=== PATIENT | female | born 1960 | race Caucasian/White ===

== ENCOUNTER 2024-02-23 23:19 | Emergency (ER) | payer OTHER, MEDICARE ==
--- OUTSIDE RECORDS SUMMARY | 2024-02-23 23:28 | XMS REPORT | Clinical Summary ---
Author Name Unknown Organization [facility] [place] Address [address] [place] [address] Care Team Providers Care Generator Rebuilder Name Role Phone Belle Goncalves Unavailable Ryanne Rangel MD Primary Care Provider [phone] Sihmon Florian MD Unavailable [phone] Mark Anthony Baptiste APRN Unavailable [phone] Mandi Bailey Unavailable Shimon Florian MD Primary Care Provider [phone] David Ortez MD Unavailable [phone] Hank Giles MD Unavailable [phone] Huong Belcher Unavailable [phone] Ramila Jimenez DDS Unavailable [phone] Cammie Rodriguez MD Unavailable [phone] Raudel Tucker MD Unavailable [phone] Allergies Active Allergy Reactions Criticality Noted Date Comments Tank Inhibitors 10/26/2023 Constant cough Medications Medication Sig Dispensed Refills Start Date End Date Status ondansetron (Zofran) 8 mg tabletIndications :Cholangiocarcino ma of biliary tract, NOS Take 1 tablet (8 mg) by mouth every 8 (eight) hours as needed for nausea or vomiting (First choice). 30 tablet 5 4 Active prochlorperazine (COMPAZINE) 10 mg tabletIndications :Cholangiocarcino ma of biliary tract, NOS Take 1 tablet (10 mg) by mouth every 6 (six) hours as needed for nausea or vomiting (Second choice). 50 tablet 5 4 Active fluoride, sodium, (PREVIDENT) 1.1 % dental creamIndications: Cholangiocarcinom a of biliary tract, NOS Apply to teeth daily. 51 g 3 4 Active lidocaine-priloca ine (EMLA) 2.5-2.5% creamIndications: Encounter for preprocedural examination Apply 1 application topically to affected area(s) as needed for mild pain (Apply to port-a-cath site 1 hour before port access.). 30 g 0 4 Active Disabled Parking PlacardIndication s:Cholangiocarcin gareth of biliary tract, NOS,Secondary malignant neoplasm of bone I am requesting a disabled parking placard for this patient because he/she meets the [employer] criteria for disabilities. The patient will need the disabled parking placard for this length of time: Permanent disability. 1 each 0 4 Active benzonatate (Tessalon Perles) 100 mg capsuleIndication s:Other specified cough Take 1 capsule (100 mg) by mouth every 8 (eight) hours as needed for cough. 60 capsule 0 4 Active lidocaine 4 % ptmdIndications:C holangiocarcinoma of biliary tract, NOS,Secondary malignant neoplasm of bone,Neoplasm related pain (acute) (chronic) Apply 1 patch topically daily. 30 patch 0 4 Active fentaNYL (DURAGESIC) patch 25 mcg/hrIndications :Neoplasm related pain (acute) (chronic) Place 1 patch (25 mcg) on the skin every 72 hours. Remove old patch(es) before replacing new patch(es). 10 patch 0 4 Active amiodarone (PACERONE) 200 mg tabletIndications :Tachypnea Take 1 tablet (200 mg) by mouth daily. 0 4 Active ipratropium (ATROVENT) 0.02% nebulizer solutionIndicatio ns:Acute hypoxemic respiratory failure Inhale 2.5 mL (0.5 mg) by nebulization every 6 (six) hours. 0 4 Active simethicone (MYLICON) 80 mg chewable tabletIndications :Gastric reflux Chew 1 tablet (80 mg) 4 (four) times a day as needed for flatulence. 0 4 Active OLANZapine (ZyPREXA) 2.5 mg tabletIndications :Personal care impairment,Tachyp morelia Take 1 tablet (2.5 mg) by mouth twice daily. 0 4 Active OLANZapine (ZyPREXA) 5 mg tabletIndications :Personal care impairment,Tachyp morelia Take 1 tablet (5 mg) by mouth every 8 (eight) hours as needed for anxiety. 0 4 Active metoprolol tartrate (LOPRESSOR) 25 mg tabletIndications :Tachypnea Take 1 tablet (25 mg) by mouth every 12 (twelve) hours. 0 4 Active sodium chloride 3 % nebulizer solutionIndicatio ns:Acute hypoxemic respiratory failure,Simple chronic bronchitis Inhale 4 mL by nebulization every 6 (six) hours. 0 4 Active wound dressings (TRIAD HYDROPHILIC) pste topical pasteIndications: Breakthrough cancer pain Apply topically to affected area(s) twice daily. 0 4 Active polyethylene glycol (MIRALAX) 17 g packetIndications :Breakthrough cancer pain Take 17 g by mouth daily as needed (Constipation). 0 4 Active senna-docusate (SENOKOT-S) 8.6 mg-50 mg tabletIndications :Breakthrough cancer pain Take 1 tablet by mouth twice daily. 0 4 Active HYDROmorphone (DILAUDID) 1 mg/1 mL liquidIndications :Breakthrough cancer pain Take 3 mL (3 mg) by mouth every 4 (four) hours as needed for severe pain. 0 4 Active pantoprazole (PROTONIX) 40 mg EC tabletIndications :Breakthrough cancer pain,Gastric reflux Take 1 tablet (40 mg) by mouth every morning before breakfast. 0 4 Active methocarbamol (ROBAXIN) 500 mg tabletIndications :Breakthrough cancer pain Take 1 tablet (500 mg) by mouth every 8 (eight) hours as needed for muscle spasms. 0 4 Active budesonide (PULMICORT) 0.5 mg/2 mL nebulizer solutionIndicatio ns:Acute hypoxemic respiratory failure,Simple chronic bronchitis Inhale 2 mL (0.5 mg) by nebulization every 12 (twelve) hours. 30 each 0 4 Active amLODIPine (NORVASC) 5 mg tablet Take 1 tablet (5 mg) by mouth daily. 0 2 024 Discontinued(St op Taking at Discharge) aspirin 81 mg cap Take 81 mg by mouth daily. 0 2 024 Discontinued(Di scontinued by another clinician) atorvastatin (LIPITOR) 40 mg tablet Take 1 tablet (40 mg) by mouth at bedtime. 0 2 024 Discontinued(St op Taking at Discharge) traMADol (ULTRAM) 50 mg tablet Take 1 tablet (50 mg) by mouth 2 (two) times a day as needed. 0 3 023 Discontinued(Th erapy completed) triamcinolone (KENALOG) 0.5 % ointment Apply 1 application topically to affected area(s) twice daily. 0 024 Discontinued(Th erapy completed) ketoconazole (NIZORAL) 2% cream Apply 1 application topically to affected area(s) daily. 0 2 024 Discontinued( erapy completed) carvedilol (COREG) 12.5 mg tablet Take 1 tablet (12.5 mg) by mouth twice daily. 0 024 Discontinued(St op Taking at Discharge) losartan (COZAAR) 50 mg tablet Take 1 tablet (50 mg) by mouth daily. 0 024 Discontinued(St op Taking at Discharge) HYDROcodone-aceta minophen (Buckhannon) 10 mg-325 mg per tabletIndications :CT of abdomen abnormal,Neoplasm related pain (acute) (chronic) Take 1 tablet by mouth every 6 (six) hours as needed for moderate pain. 60 tablet 0 3 023 Discontinued(Re order) HYDROcodone-aceta minophen ([place]) 10 mg-325 mg per tabletIndications :CT of abdomen abnormal,Neoplasm related pain (acute) (chronic) Take 1 tablet by mouth every 6 (six) hours as needed for moderate pain. 60 tablet 0 3 024 Discontinued( erapy completed) peg 3350-electrolytes (Golytely) 236-22.74-6.74 g solutionIndicatio ns:Adenocarcinoma , NOS of unknown primary site Use as directed by ordering provider. 4000 mL 0 3 023 Discontinued( erapy completed) omeprazole (PriLOSEC) 20 mg capsule Take 1 capsule (20 mg) by mouth every morning before breakfast. 0 4 024 Discontinued( erapy completed) oxyCODONE (ROXICODONE) 10 mg immediate release tabletIndications :Adenocarcinoma, NOS of unknown primary site Take 1 tablet (10 mg) by mouth every 6 (six) hours as needed for moderate pain for up to 30 days. 120 tablet 0 4 024 ondansetron (ZOFRAN) 8 mg tabletIndications :Malignant neoplasm of liver, not specified as primary or secondary Take 1 tablet (8 mg) by mouth every 8 (eight) hours as needed for nausea or vomiting. 30 tablet 0 4 024 Discontinued ALPRAZolam (Xanax) 0.5 mg tabletIndications :Secondary malignant neoplasm of bone Take 1 tablet (0.5 mg) by mouth nightly as needed for anxiety. 2 tablet 0 4 024 Discontinued(St op Taking at Discharge) oxyCODONE (ROXICODONE) 10 mg immediate release tabletIndications :Cholangiocarcino ma of biliary tract, NOS Take 1 tablet (10 mg) by mouth every 6 (six) hours as needed for severe pain for up to 30 days. 120 tablet 0 4 024 Discontinued HYDROcodone-aceta minophen (NORCO) 10 mg-325 mg per tabletIndications :Cholangiocarcino ma of biliary tract, NOS Take 1 tablet by mouth every 8 (eight) hours as needed for severe pain or moderate pain for up to 30 days. 90 tablet 0 4 024 Discontinued(St op Taking at Discharge) budesonide (PULMICORT) 0.5 mg/2 mL nebulizer solutionIndicatio ns:Acute hypoxemic respiratory failure,Simple chronic bronchitis Inhale 2 mL (0.5 mg) by nebulization every 12 (twelve) hours. 30 each 0 4 024 Discontinued(Re order) Active Problems Problem Noted Date Diagnosed Date Hematoma 02/21/2024 Acute respiratory failure with hypoxia Acute respiratory distress 02/05/2024 Confusion 02/05/2024 Air hunger 02/05/2024 Tachypnea 02/05/2024 Acute postoperative pain 01/31/2024 Severe protein-calorie malnutrition 01/26/2024 Fracture of neck of femur 01/25/2024 Metastatic malignant neoplasm to bone 01/25/2024 Pathological fracture, right femur 01/25/2024 Stage 3 pressure ulcer of other site 01/25/2024 Overview: Coccyx and left buttock Secondary malignant neoplasm of bone 12/26/2023 Cholangiocarcinoma of biliary tract, 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(cTX, cN2, cM1) - Unsigned Chronic bronchitis 10/26/2023 Chronic kidney disease 10/26/2023 Chronic obstructive pulmonary disease 10/26/2023 Diverticulitis 10/26/2023 Eczema 10/26/2023 Fatty liver 10/26/2023 Gastric reflux 10/26/2023 Hepatitis 10/26/2023 Hyperlipidemia 10/26/2023 Hypertension 10/26/2023 Polyp of colon 10/26/2023 Psoriasis 10/26/2023 Tuberculosis 10/26/2023 Type 2 diabetes mellitus 10/26/2023 Urinary incontinence 10/26/2023 Neoplasm related pain (acute) (chronic) 10/26/20 Tobacco use 10/26/2023 CT of abdomen abnormal 10/24/2023 Resolved Problems Problem Noted Date Diagnosed Date Resolved Date Hyperkalemia 01/25/2024 02/21/2024 Adenocarcinoma, NOS of unknown primary site 11/17/2023 12/20/2023 Encounters Date Type Department Care Team Description 02/05/2024 12:29 AM [employer] Anesthesia Event MAIN ICUA [address] [place] [address] Mikaela Bates MD 02/02/2024 Orders Only MD [facility] - Medical Oncology [address] [place] [address] Mandi Bailey PA Cholangiocarcinoma of biliary tract, NOS (Primary Dx) 01/30/2024 3:44 PM [employer] Anesthesia Event MAIN OR [address] [place] [address] Kassandra Alexander MD Hancher-Hodges, Shannon, MD 01/30/2024 12:55 PM [employer] - 01/30/2024 5:10 PM [employer] Surgery MAIN OR [address] [place] [address] Hank Giles MD ACETABULOPLASTY WITH RESECTION OF FEMORAL HEAD (EG, GIRDLESTONE PROCEDURE) 01/30/2024 Travel 01/26/2024 Orders Only [facility] [address] [place] [address], 7th [place] [address] Isai Sumner MD 01/25/2024 Prep for Surgery [facility] [address] [place] [address], 9th [place] [address] Garrett Brewer PA Cholangiocarcinoma of biliary tract, NOS (Primary Dx); Metastatic malignant neoplasm to bone; Pathological fracture, right femur, initial encounter for fracture 01/24/2024 7:41 PM [employer] - 02/22/2024 5:29 PM CDT Hospital Encounter MAIN [address] [place] [address] Felicia Donald MD Musunuru, Tejo, MD Gao, Lucy C, MD Mohammed, MD Jarocho Zavala Mayoora, DO Parhizgar, Alireza, MD Koom-Dadzie, Kwame, MD Dickson, Kodwo, MD Pathologic fracture of neck of femur (Primary Dx); Cholangiocarcinoma of biliary tract, NOS; Breakthrough cancer pain; Anemia in malignant neoplastic disease; Edema of lower extremity; Metastatic malignant neoplasm to bone; Pathological fracture, right femur, initial encounter for fracture; Acute hypoxemic respiratory failure; Acute respiratory failure with hypoxia; Bilateral pneumonia; Acute respiratory distress; Gross hematuria; Neoplasm related pain (acute) (chronic); Physical deconditioning; Malignant neoplasm related fatigue; Personal care impairment; Simple chronic bronchitis; Gastric reflux; Tobacco use; Tachypnea; Encounter for adjustment and management of vascular access device Discharge Disposition: Senior Care Facility or Subacute Rehab 01/24/2024 Travel 01/24/2024 Orders Only [facility] [address] [place] [address], [address] [place] [address] [place] [address] Mandi Bailey PA 01/24/2024 Telephone [facility] [address] [place] [address] Marilou Montgomery V, RN 01/23/2024 Orders Only [facility] [address] [place] [address], [address] [place] [address] Mandi Bailey PA Cholangiocarcinoma of biliary tract, NOS (Primary Dx); Secondary malignant neoplasm of bone; Neoplasm related pain (acute) (chronic) 01/23/2024 Telephone [facility] [address] [place] [address], [address] [place], [place] [id number] Marilou Montgomery V, RN 01/20/2024 Case Management Case Management [address] [place] [address] Irasema Bains RN 01/19/2024 8:30 AM [employer] Infusion MD [facility] [place] [facility] [address] [place] [address] Shimon Florian MD Philipose, Glory J, RN Cholangiocarcinoma of biliary tract, NOS (Primary Dx) 01/19/2024 Case Management Case Management [address] [place] [address] Irasema Bains, RN 01/19/2024 Travel 01/18/2024 Case Management Case Management [address] [place] [address] Irasema Bains, RN 01/18/2024 Orders Only MD [facility] [place] [facility] Medical Oncology [address] [place] [address] Mandi Bailey PA Cholangiocarcinoma of biliary tract, NOS (Primary Dx) 01/18/2024 Case Management Case Management [address] [place] [address] Irasema Bains, RN 01/18/2024 Documentation Internal Medicine Center [address] [facility], 9th [place] [address] Aubrey Rossi RN 01/17/2024 2:15 PM [employer] Telemedicine Internal Medicine Center [address] [facility], 6th [place] [address] Raudel Tucker MD Stage 3a chronic kidney disease (Primary Dx) 01/17/2024 10:00 AM [employer] Telemedicine [facility] [address] [place] [address], 7th [place] [address] Shimon Florian MD Cholangiocarcinoma of biliary tract, NOS (Primary Dx); Pressure ulcer, not otherwise specified 01/17/2024 8:49 AM [employer] - 01/17/2024 11:59 PM [employer] Hospital Encounter [facility] [address] [place] [address] Wong Heart PA Surgical incision wound of skin [R23.8] (Primary Dx); Follow-up 2 weeks [Z09] Discharge Disposition: Home 01/10/2024 Telephone [facility] [address] [place] [address], 7th [place] [address] Mandi Bailey PA 01/10/2024 Orders Only [facility] [address] [place] [address], 7th [place] [address] Mandi Bailey PA Cholangiocarcinoma of biliary tract, NOS (Primary Dx) 01/10/2024 Orders Only [facility] - Pulmonology Medicine [address] [place] [address], 6th [place] [address] Brittaney Fields APRN Shortness of breath (Primary Dx) 01/10/2024 Orders Only [facility] [address] [place] [address], 7th [place] [address] Mandi Bailey PA Other specified cough (Primary Dx) 01/09/2024 Orders Only MD [facility] [place] - Medical Oncology [address] [place] [address] Mandi Bailey PA Cholangiocarcinoma of biliary tract, NOS (Primary Dx); Secondary malignant neoplasm of bone; Neoplasm related pain (acute) (chronic) 01/09/2024 Orders Only [facility] [address] [place] [address], 7th [place] [address] Shimon Florian MD Cholangiocarcinoma of biliary tract, NOS (Primary Dx) 01/05/2024 9:30 AM [employer] Infusion MD [facility] [place] [facility] [address] [place] [address] Shimon Florian MD Gulimlim, Fernando J RN Cholangiocarcinoma of biliary tract, NOS (Primary Dx); Secondary malignant neoplasm of bone 01/05/2024 Travel 01/04/2024 12:30 PM [employer] Ancillary Procedure General Ultrasound [address] [facility], 5th [place] [address] Shimon Florian MD Cholangiocarcinoma of biliary tract, NOS 01/04/2024 9:30 AM [employer] Consult Internal Medicine Center 15[address] [facility], 9th [place] [address] Cammie Rodriguez MD Screening examination for other specified viral diseases (Primary Dx); Chronic viral hepatitis C; Hepatitis C antibody detected 01/04/2024 Documentation Radiation Oncology [address] [facility], 1st [place] [address] David Ortez MD 01/04/2024 Travel 01/03/2024 1:30 PM [employer] Follow-Up [facility] [address] [place] [address], 7th [place] [address] Shimon Florian MD Secondary malignant neoplasm of bone (Primary Dx); Cholangiocarcinoma of biliary tract, NOS; Chronic kidney disease, not otherwise specified 01/03/2024 11:43 AM [employer] - 01/03/2024 11:59 PM [employer] Hospital Encounter Radiation Oncology [address] [facility], 1st [place] [address] David Ortez MD Secondary malignant neoplasm of bone (Primary Dx) Discharge Disposition: Home 01/03/2024 Travel 01/03/2024 Orders Only [facility] [address] [facility], 7th [place] [address] Antoni Whyte [facility] Secondary malignant neoplasm of bone (Primary Dx); Cholangiocarcinoma of biliary tract, NOS 01/02/2024 11:55 AM [employer] - 01/02/2024 11:59 PM [employer] Hospital Encounter [facility] [address] [place] [address] Discharge Disposition: Home 01/02/2024 10:22 AM [employer] Anesthesia Event [facility] [address] [place] [address] Ceasar Carrizales MD 01/02/2024 9:00 AM [employer] - 01/02/2024 11:54 AM [employer] Hospital Encounter [facility] [address] [place] [address] Shimon Florian MD Idowu, Olakunle, MD Nunez, Jorge, CRNA Lee, Stephen, MD Cholangiocarcinoma of biliary tract, NOS Discharge Disposition: Home 12/30/2023 11:59 PM [employer] Anesthesia Event Perioperative Evaluation and Management Center [facility], 6th [place] [address] Ann Marie Murray, ANTHROPOMETRIST 12/30/2023 4:30 PM [employer] POEM Appointments Perioperative Evaluation and Management Center [facility], 6th [place] [address] Junie Jacobo PA 12/30/2023 Travel 12/29/2023 8:19 AM [employer] - 12/29/2023 11:59 PM [employer] Hospital Encounter Interventional Radiology 12[address] [facility], 4th [place] [address] Shimon Florian MD Finkelman, Jessica E PA Encounter for preprocedural examination (Primary Dx); Cholangiocarcinoma of biliary tract, NOS Discharge Disposition: Home 12/29/2023 Travel 12/29/2023 Orders Only Main Interventional Radiology [address] [facility], 3rd [place] [address] Huong Belcher PA Encounter for preprocedural examination (Primary Dx) 12/29/2023 Orders Only Main Interventional Radiology [address] [facility], 3rd [place] [address] Huong Belcher PA 12/28/2023 Documentation [facility] 1[facility] [place] [address] David Ortez MD 12/28/2023 Travel 12/28/2023 Documentation Radiation Oncology [address] [facility], 1st [place] [address] David Ortez MD 12/27/2023 8:45 AM [employer] - 12/27/2023 11:59 PM [employer] Hospital Encounter Oral Oncology [address] Main Bldg, 9th [place] [address] Ramila Jimenez DDS Encounter for observation for other suspected disease ruled out Discharge Disposition: Home 12/27/2023 8:44 AM [employer] Hospital Encounter Oral Oncology [address] Main Bldg, 9th [place] [address] Ramila Jimenez DDS Encounter for observation for other suspected disease ruled out (Primary Dx); Cholangiocarcinoma of biliary tract, NOS; Secondary malignant neoplasm of bone; Tobacco use; Plaque induced acute gingivitis; Accretion on teeth Discharge Disposition: Home 12/27/2023 7:05 AM [employer] - 12/27/2023 8:43 AM [employer] Hospital Encounter Radiation Oncology [address] [place] [address] Ashleigh Spaulding, ANTHROPOMETRIST David [place]te[place] MD Thang, Sandy, ALE Metastatic malignant neoplasm to bone Discharge Disposition: Home 12/27/2023 Documentation Radiation Oncology [address] [facility], 1st [place] [address] David Ortez MD 12/27/2023 Documentation Radiation Oncology [address] [facility], 1st [place] [address] David Ortez MD 12/27/2023 Travel 12/26/2023 1:00 PM [employer] Telephone [facility] 15[address] [facility] Main [facility], 7th [place] [address] Shimon Florian MD 12/26/2023 11:00 AM [employer] - 12/26/2023 11:59 PM [employer] Hospital Encounter Rehabilitation Services [address] [facility], 1st Floor [address] [place] [address] Garrett Brewer PA Penny, Alex, CHRISTIANO Other abnormalities of gait and mobility (Primary Dx); Cholangiocarcinoma of biliary tract, NOS Discharge Disposition: Home 12/26/2023 10:00 AM [employer] Office Visit [facility] [address] [facility], 9th [place] [address] Rakesh Perdomo Jr., MD Patel, Shalin Shreyaskumar, MD Metastatic malignant neoplasm to bone (Primary Dx); Cholangiocarcinoma of biliary tract, NOS 12/26/2023 Orders Only Oral Oncology [address] [facility], 9th [place] [address] Susana Mike MD Encounter for observation for other suspected disease ruled out (Primary Dx) 12/26/2023 Travel 12/26/2023 Orders Only MD [facility] - Medical Oncology [address] [place] [address] Mandi Bailey PA 12/24/2023 Orders Only [facility] [address] [facility] Main [facility], 7th [place] [address] Shimon Florian MD Cholangiocarcinoma of biliary tract, NOS (Primary Dx) 12/23/2023 8:32 AM [employer] - 12/23/2023 11:59 PM [employer] Hospital Encounter Radiation Oncology [address] [facility], 1st [place] [address] Shimon Florian MD Smith, Benjamin, MD Secondary malignant neoplasm of bone (Primary Dx); Cholangiocarcinoma of biliary tract, NOS Discharge Disposition: Home 12/23/2023 Telephone MD [facility] [place] [facility] [address] [place] [address] Checo Acosta Jr., RN Follow-up 12/23/2023 Orders Only Radiation Oncology [address] [facility] Main Bldg, 1st [place] [address] Ashleigh Spaulding, ANTHROPOMETRIST Metastatic malignant neoplasm to bone (Primary Dx) 12/23/2023 Orders Only [facility] [address] [facility] Main Bldg, 7th [place] [address] Deb Javed [facility] Cholangiocarcinoma of biliary tract, NOS (Primary Dx) 12/22/2023 7:30 AM [employer] Infusion MD [facility] [place] [facility] [address] [place] [address] Shimon Florian MD Alegado, Reynaldo F Jr., RN Cholangiocarcinoma of biliary tract, NOS (Primary Dx) 12/22/2023 Orders Only [facility] [address] [facility] Main Bldg, 7th [place] [address] Shimon Florian MD Cholangiocarcinoma of biliary tract, NOS (Primary Dx) 12/22/2023 Travel 12/21/2023 Telephone Radiation Oncology [address] [facility] Main Bldg, 1st Floor near [place] [address] Ashleigh Spaulding, ANTHROPOMETRIST 12/21/2023 Orders Only Main Interventional Radiology [address] [facility] Pavilion Bldg, 3rd [place] [address] Junie Jacobo PA 12/20/2023 2:45 PM [employer] Ancillary Procedure MD Ford Frakes [address] [facility] [address] [place] [address] Ashleigh Spaulding APRN Metastatic malignant neoplasm to bone 12/20/2023 11:00 AM [employer] Telemedicine [facility] [address] [facility] Main Bldg, 7th [place] [address] Shimon Florian MD Cholangiocarcinoma of biliary tract, NOS (Primary Dx); Adenocarcinoma, NOS of unknown primary site 12/20/2023 Orders Only [facility] [address] [facility] Main Bldg, 7th [place] [address] Shimon Florian MD Cholangiocarcinoma of biliary tract, NOS (Primary Dx) 12/20/2023 Documentation Internal Medicine Center [address] [facility] Main dg, 9th [place] [address] Aubrey Rossi RN 12/20/2023 Orders Only [facility] [address] [facility] Main dg, 7th [place] [address] [facility], [facility] Cholangiocarcinoma of biliary tract, NOS (Primary Dx) 12/20/2023 Orders Only Radiation Oncology [address] [facility] Main dg, 1st [place] [address] Ashleigh Spaulding APRN Metastatic malignant neoplasm to bone (Primary Dx) 12/15/2023 9:17 AM [employer] Anesthesia Event [facility] [address] [place] [address] Charles Lowe MD 12/15/2023 7:38 AM [employer] - 12/15/2023 11:59 PM [employer] Hospital Encounter [facility] [address] [place] [address] Shimon Florian MD Jackson, Timothy, MD Catudal, Lisa, CRNA Lu, Thomas, MD Adenocarcinoma, NOS of unknown primary site Discharge Disposition: Home 12/14/2023 11:59 PM [employer] Anesthesia Event [facility] [address] [facility] Main Bldg, 6th [place] [address] Deborah Tristan, ANTHROPOMETRIST 12/14/2023 2:13 PM [employer] - 12/14/2023 11:59 PM [employer] Hospital Encounter MD [facility] [place] [address] [place] [id number] Ryanne Rangel MD Gonzalez, Christian, ANTHROPOMETRIST Adenocarcinoma, NOS of unknown primary site (Primary Dx); Abnormal finding on diagnostic imaging of other abdominal region including retroperitoneum; Encounter for other preprocedural examination Discharge Disposition: Home 12/14/2023 2:00 PM [employer] POEM Appointments [facility] [address] [place] [address], 6th [place] [address] Ryanne Rangel MD 12/14/2023 11:26 AM [employer] Anesthesia Event [facility] [address] [place] [address], [facility] [place] [address] Austin Pinedo II, ANTHROPOMETRIST 12/14/2023 Orders Only [facility] [address] [place] [address], 7th [place] [address] Shimon Florian MD Adenocarcinoma, NOS of unknown primary site (Primary Dx) 12/14/2023 Orders Only [facility] [address] [place] [address], [facility] [place] [address] Mandi Bailey PA Adenocarcinoma, NOS of unknown primary site (Primary Dx); Malignant neoplasm of liver, not specified as primary or secondary; Cholangiocarcinoma of biliary tract, 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 Orders Only [facility] [address] [place] [address], 7th [place] [address] Shimon Florian MD Adenocarcinoma, NOS of unknown primary site (Primary Dx) 12/09/2023 Case Management Case Management [address] [place] [id number] Elicia Etienne, RN 12/08/2023 4:30 PM [employer] POEM Appointments [facility] [address] [place] [address], 6th [place] [address] Ghazal Grimes PA Encounter for preprocedural laboratory examination (Primary Dx) 12/08/2023 Orders Only MD Ford Fra[facility] - Medical Oncology [address] [place] [address] Mandi Bailey PA Adenocarcinoma, NOS of unknown primary site (Primary Dx) 12/07/2023 Orders Only [facility] [address] [place] [address], 7th [place] [address] Mandi Bailey PA Adenocarcinoma, NOS of unknown primary site (Primary Dx); Malignant neoplasm of liver, not specified as primary or secondary 12/07/2023 Telephone [facility] [address] [place] [address], 7th [place] [address] Tuan Aleman RN 12/06/2023 2:55 PM [employer] Ancillary Procedure CT Imaging 1220 [facility], 7th [place] [address] Mandi Bailey PA Adenocarcinoma, NOS of unknown primary site 12/06/2023 1:00 PM [employer] Consult [facility] [address] [place] [address], 7th [place] [address] Shimon Florian MD Adenocarcinoma, NOS of unknown primary site (Primary Dx); Malignant neoplasm of liver, not specified as primary or secondary 12/06/2023 11:12 AM [employer] - 12/06/2023 11:59 PM [employer] Hospital Encounter [facility] [address] [place] [address], [place] [address] Mandi Bailey PA Adenocarcinoma, NOS of unknown primary site Discharge Disposition: Home 12/06/2023 Orders Only Main Interventional Radiology [address] [place] [address] Pavilion [facility], 3rd [place] [address] Ghazal Grimes PA 12/06/2023 Travel 12/06/2023 Telephone Internal Medicine Center [address] [place] [address], 9th [place] [address] Cammie Rodriguez MD 12/01/2023 Orders Only Gastrointestinal Center [facility] Main Bldg, 7th [place] [address] Mandi Bailey PA Adenocarcinoma, NOS of unknown primary site (Primary Dx) 12/01/2023 Orders Only [facility] [address] Main Bldg, 7th [place] [address] Mandi Bailey PA Adenocarcinoma, NOS of unknown primary site (Primary Dx) 11/30/2023 Telephone Internal Medicine Center [facility] Main Bldg, 9th [place] [address] Vasyl Seymour APRN 11/29/2023 Orders Only Internal Medicine Center [facility] Main Bldg, 9th [place] [address] Vasyl Seymour, ANTHROPOMETRIST Hepatitis C antibody detected (Primary Dx) 11/29/2023 Orders Only Internal Medicine Center [facility]5 [facility] Main Bldg, 9th [place] [address] Vasyl Seymour, ANTHROPOMETRIST Adenocarcinoma, NOS of unknown primary site (Primary Dx) 11/25/2023 1:54 PM [employer] Anesthesia Event [facility] [address] Main Bldg, 5th [place] [address] Bryan Machuca MD Jackson, Timothy, MD 11/25/2023 1:50 PM [employer] - 11/25/2023 3:00 PM [employer] Surgery [facility] [address] Main Bldg, 5th [place] [address] Mauricio Lin Chi, MD DIAGNOSTIC UPPER GASTROINTESTINAL ENDOSCOPY 11/25/2023 12:33 PM [employer] - 11/25/2023 4:40 PM [employer] Hospital Encounter [facility] [address] Main Bldg, 5th [place] [address] Mauricio Lin Chi, MD Adenocarcinoma, NOS of unknown primary site Discharge Disposition: Home 11/25/2023 Travel 11/24/2023 11:59 PM [employer] Anesthesia Event [facility] [address] [place] [address] Main [facility], 6th [place] [address] Liberty Rodriguez RN 11/24/2023 10:00 AM [employer] POEM Appointments [facility] [address] [place] [address] Main [facility], 6th [place] [address] Ryanne Rangel MD 11/24/2023 Orders Only Endoscopy Center [address] [place] [address] Main [facility], 5th [place] [address] Edwige Bernard APRN Adenocarcinoma, NOS of unknown primary site (Primary Dx) 11/17/2023 Orders Only [facility] Center [address] [place] [address], 9th [place] [address] of abdomen abnormal; Neoplasm related pain (acute) (chronic) 11/17/2023 Refill Internal [facility] [address] [place] [address], 9th [place] [address] Linda Berman, ANGUS 11/17/2023 Prep for Procedure [facility] [address] [place] [address], 5th [place] [address] Oscar Schultz PA-C Adenocarcinoma, NOS of unknown primary site (Primary Dx) 11/16/2023 Telephone Internal [facility] [address] [place] [address] Main [facility], 9th [place] [address] Vasyl Seymour APRN 11/16/2023 Orders Only [facility] Medicine Center [address] [place] [address] Main [facility], 9th [place] [address] Vasyl Seymour, ANTHROPOMETRIST Adenocarcinoma, NOS of unknown primary site (Primary Dx) 11/14/2023 11:31 AM [employer] - 11/14/2023 11:59 PM [employer] Hospital Encounter Interventional Radiology 1220 [facility], 4th [place] [address] Vasyl Seymour APRN McRae, Stephen, MD Liver mass Discharge Disposition: Home 11/14/2023 Travel 11/11/2023 11:52 AM [employer] - 11/11/2023 11:59 PM [employer] Hospital Encounter [facility] [address] [place] [address] Deb Bay PA Discharge Disposition: Home 11/11/2023 10:58 AM [employer] - 11/11/2023 11:51 AM [employer] Hospital Encounter Interventional Radiology 12[address] [facility], 4th [place] [address] Ryanne Rangel MD Chien, Pamela L, PA Lesion of liver (Primary Dx); Encounter for other preprocedural examination Discharge Disposition: Home 11/11/2023 Travel 11/02/2023 Refill [facility] [facility] Main Bldg, 9th [place] [address] Linda Berman RN 11/01/2023 8:00 PM [employer] Ancillary Procedure Image Library [facility] [facility] [place] [address] Ryanne Rangel MD Cancer 10/31/2023 Orders Only Main Interventional Radiology [address] Pavilion Bldg, 3rd [place] [address] Deb Bay PA 10/31/2023 Telephone Main Interventional Radiology [address] Pavilion Bldg, 3rd [place] [address] Leonid Blackwell MA 10/27/2023 8:52 AM [employer] - 10/27/2023 11:59 PM [employer] Hospital Encounter Main CT IMAGING [address] Main Bldg, 3rd [place] [address] Vasyl Seymour APRN Pulmonary nodules Discharge Disposition: Home 10/26/2023 12:27 PM [employer] - 10/26/2023 11:59 PM [employer] Hospital Encounter [facility] [address] Main Bldg, 2nd [place] [address] Vasyl Seymour, CORNEL CT of abdomen abnormal Discharge Disposition: Home 10/26/2023 12:15 PM [employer] - 10/26/2023 12:26 PM [employer] Hospital Encounter [facility] [address] [place] [address], [place] [address] Vasyl Seymour, ANTHROPOMETRIST CT of abdomen abnormal Discharge Disposition: Home 10/26/2023 11:00 AM [employer] Office Visit Internal Medicine Center [address] [place] [address], 9th [place] [address] of abdomen abnormal (Primary Dx); Neoplasm related pain (acute) (chronic); Chronic obstructive pulmonary disease, not otherwise specified; Fatty liver; Hepatitis, not otherwise specified; Mixed hyperlipidemia; Hypertension; Type 2 diabetes mellitus, not otherwise specified; Tobacco use 10/26/2023 Orders Only [facility] [address] [place] [address], 9th [place] [address] Vasyl Seymour, ANTHROPOMETRIST CT of abdomen abnormal (Primary Dx); Pulmonary nodules 10/26/2023 Travel 10/25/2023 8:00 PM [employer] Ancillary Procedure Image Library [address] [place] [address] Ryanne Rangel MD Cancer 10/25/2023 3:15 PM [employer] Ancillary Procedure [facility] MRI [address] [facility], 4th [place] [address] Vasyl Seymour, ANTHROPOMETRIST Liver mass 10/24/2023 11:00 AM [employer] NPR MDA PATIENT ACCESS 10/24/2023 Orders Only [facility] [address] [place] [address], 9th [place] [address] Vasyl Seymour, ANTHROPOMETRIST Pulmonary nodules (Primary Dx); Liver mass 10/18/2023 Orders Only [facility] [address] [place] [address], 9th [place] [address] Vasyl Seymour APRN Liver mass (Primary Dx) 10/14/2023 Travel after 02/23/2023 Surgical History Surgery Date Site/Laterality Comments APPENDECTOMY 1985 Removed during hysterectomy COLON SURGERY 1985 2 ft removed during hysterectomy COLONOSCOPY 2018 5 yr ck due HYSTERECTOMY 1985 LIVER BIOPSY 1998 MULTIPLE TOOTH EXTRACTIONS DC ESOPHAGOGASTRODUODENOSCOP Y TRANSORAL DIAGNOSTIC 11/25/2023 Esophagus/N/A Procedure: DIAGNOSTIC UPPER GASTROINTESTINAL ENDOSCOPY; Surgeon: Mauricio Lin Chi, MD; Location: MAIN ENDOSCOPY; Service: GASTROENTEROLOGY DC COLONOSCOPY FLX DX W/KAEL J SPEC WHEN PFRMD 11/25/2023 N/A Procedure: DIAGNOSTIC FLEXIBLE COLONOSCOPY PROXIMAL TO SPLENIC FLEXURE; Surgeon: Mauricio Lin Chi, MD; Location: MAIN ENDOSCOPY; Service: GASTROENTEROLOGY DC ACETABULOPLASTY RESECTION FEMORAL HEAD 01/30/2024 Thigh/Right Procedure: ACETABULOPLASTY WITH RESECTION OF FEMORAL HEAD (EG, GIRDLESTONE PROCEDURE); Surgeon: Hank Giles MD; Location: MAIN OR; Service: ORTHOPEDIC ONCOLOGY DC EXCISION/CURETTAGE CYST/T UMOR FEMUR 01/30/2024 Thigh/Right Procedure: CURETTAGE OF BONE CYST OR BENIGN TUMOR OF FEMUR; Surgeon: Hank Giles MD; Location: MAIN OR; Service: ORTHOPEDIC ONCOLOGY Medical History Medical History Date Comments Hypertension 1993 on amlodipine, c arvedilol and losartan Hyperlipidemia on atorvastatin Chronic bronchitis 2009 no hospitaliz ations or ER visits Hepatitis 1998 Cured 1998 appro ximately; Hep C Fatty liver 1997 no history of ci rrhosis; had liver bx in 2018 Gastric reflux 1989 using Pepcid Diverticulitis 2004 Polyp of colon 2014 benign; multiple Urinary incontinence 1970 Endometriosis 1985 Total hysterecto my Type 2 diabetes mellitus 1989 Diet co ntrolled; A1C 6.6% Eczema 2005 Psoriasis 2005 using triamcinol one ointment Chronic obstructive pulmonary disease 2017 no oxygen; inhaler prn Osteopenia 2012 no fractures Chronic kidney disease abn blood work Tuberculosis 2007 Treated in Gastroesophageal reflux disease Adenocarcinoma, NOS of unkno wn primary site 11/17/2023 jail current use of inh aled steroid Family History Medical History Relation Name Comments Melanoma Daughter Niece. Sarahy Gershben Skin cancer Daughter Niece. Sarahy Gershben Colon cancer Maternal Grandmother Yessica Gómezmiriam Stomach cancer Paternal Grandfather Allan [place] Breast cancer Sister Noemy Dailey Over 5 year Kidney cancer Sister Noemy Dailey Relation Name Status Comments Daughter Niece. Sarahy Chavarria Maternal Grandmother Yessica Anguiano Niece Alive Paternal Grandfather Allan [place] Sister Noemy Dailey Social History Tobacco Use Types Packs/Day Years Used Date Smoking Tobacco: Every Day Cigarettes 0.5 48 Started: 1974 Passive Smoke Exposure: Current Smokeless Tobacco: Never Tobacco Cessation:Ready to Q uit: No; Counseling Given: No Alcohol Use Standard Drinks/Week Comments Not Currently 0 (1 standard drink = 0.6 oz pur e alcohol) Sex and Gender Information Value Date Recorded Sex Assigned at Not on file Gender Identity Not on file Sexual Orientation Not on file Job Start Date Occupation Industry Not on file Not on file Not on file Obstetrics History Last Filed Vital Signs Vital Sign Reading Time Taken Comments Blood Pressure 107/63 02/22/2024 1:19 PM CDT Pulse 73 02/22/2024 3:56 PM CDT Temperature 36.4 C (97.5 F) 02/22/2024 1 1:23 AM CDT Respiratory Rate 20 02/22/2024 3:56 PM CDT Oxygen Saturation 100% 02/22/2024 1:19 PM CDT Inhaled Oxygen Concentration - - Weight 69.3 kg (152 lb 12.5 oz) 02/22/2024 6:11 AM CDT Height 161 cm (5' 3.39") 02/04/2024 11: 55 PM [employer] Body Mass Index 26.73 02/04/2024 11:55 PM [employer] Plan of Treatment Upcoming Encounters Date Type Department Care Team Description 02/29/2024 11:00 AM CDT Telemedicine Internal Medicine Center [address] [place] [address] Main [facility], 9th [place], [place] [id number] Cammie Rodriguez MD [address] [place] [address] 03/05/2024 9:30 AM CDT Office Visit Orthopaedic Center [address] [place] [address] Main [facility], 9th Floor [address] [place], [place] [id number] Hank Giles MD [address] [place] [address] 03/19/2024 9:00 AM CDT Telemedicine Physical Medicine and Rehabilitation [address] [place] [address] east of the Aquarium entrance, Room [address] [place] [address] Joie Singletary Katy, ANTHROPOMETRIST [address] [place] [address] 03/29/2024 10:00 AM CDT Infusion MD [facility] - Infusion [address] [place] [address] Mandi Bailey PA [facility] [place] [address] 04/02/2024 7:30 AM CDT Ancillary Procedure [facility] [address] [place] [address], 7th [place] [address] Garrett Brewer PA [facility] [place] [address] 04/02/2024 7:45 AM CDT Ancillary Procedure [facility] [address] [place] [address], 7th [place] [address] Garrett Brewer PA [address] [place] [address] 04/02/2024 8:45 AM CDT Follow-Up Orthopaedic Center [address] [place] [address], 9th [place] [address] Hank Giles MD [address] [place] [address] 04/03/2024 8:30 AM CDT Appointment Radiation Oncology 1220 [facility], 1st [place] [address] David Ortez MD [address] [place] [address] 05/22/2024 1:15 PM CDT Lab MD [facility] [address] [facility] [address] [place] [address] Raudel Tucker MD [address] [place] [address] 05/22/2024 3:45 PM CDT Telemedicine Internal Medicine Center 1220 [facility], 6th [place] [address] Raudel Tucker MD [facility] [place] [address] Health Maintenance Due Date Last Done Comments COVID-19 Vaccine (#1) 1965 Influenza Vaccine 07/29/2023 Medical Devices Implanted Type Area [employer] Developer Device Identifier Shelf Expiration Date Model / Serial / Lot Fiducial Marker Fiducial marker Left: Breast Pwrport, Clearvue Slim 8fr - [id number] Implanted:Qt y: 1 on 01/02/2024 by Good Gilbert MD at [facility] Implant Right: Chest Wall BARD PERIPHERAL VASCULAR [id number] 04/27/2025 [id number] / / [id number] Procedures Procedure Name Priority Date/Time Associated Diagnosis Comments PICC/NON-TUNNELED CVAD REMOVAL Routine 02/22/2024 4:56 PM CDT Encounter for adjustment and management of vascular access device DIFFERENTIAL Routine 02/22/2024 6:04 AM CDT MDA CP PRMYEF Routine 02/22/2024 6:04 AM CDT MDA CP BLSTFL Routine 02/22/2024 6:04 AM CDT .CBC Routine 02/22/2024 6:04 AM CDT COMPLETE BLOOD COUNT W/ DIFFERENTIAL Routine 02/22/2024 6:04 AM CDT COMPREHENSIVE METABOLIC PANEL Routine 02/22/2024 6:04 AM CDT APTT Routine 02/22/2024 6:04 AM CDT PROTHROMBIN TIME Routine 02/22/2024 6:04 AM CDT LACTIC ACID, VENOUS Routine 02/22/2024 6 :04 AM CDT PHOSPHORUS LEVEL Routine 02/22/2024 6:04 AM CDT MAGNESIUM LEVEL Routine 02/22/2024 6:04 AM CDT PHOSPHORUS LEVEL Routine 02/21/2024 1:24 PM CDT MAGNESIUM LEVEL Routine 02/21/2024 1:24 PM CDT DIFFERENTIAL Routine 02/21/2024 5:46 AM CDT MDA CP PRMYEF Routine 02/21/2024 5:46 AM CDT MDA CP BLSTFL Routine 02/21/2024 5:46 AM CDT .CBC Routine 02/21/2024 5:46 AM CDT COMPLETE BLOOD COUNT W/ DIFFERENTIAL Routine 02/21/2024 5:46 AM CDT COMPREHENSIVE METABOLIC PANEL Routine 02/21/2024 5:46 AM CDT APTT Routine 02/21/2024 5:46 AM CDT PROTHROMBIN TIME Routine 02/21/2024 5:46 AM CDT LACTIC ACID, VENOUS Routine 02/21/2024 5 :46 AM CDT PHOSPHORUS LEVEL Routine 02/21/2024 5:46 AM CDT MAGNESIUM LEVEL Routine 02/21/2024 5:46 AM CDT PHOSPHORUS LEVEL Routine 02/20/2024 5:12 PM CDT MAGNESIUM LEVEL Routine 02/20/2024 5:12 PM CDT TRANSFUSE RED BLOOD CELLS Routine 02/20/2024 12:05 PM CDT PREPARE RBC Routine 02/20/2024 9:42 AM CDT DIFFERENTIAL Routine 02/20/2024 4:48 AM CDT MDA CP PRMYEF Routine 02/20/2024 4:48 AM CDT MDA CP BLSTFL Routine 02/20/2024 4:48 AM CDT .CBC Routine 02/20/2024 4:48 AM CDT COMPLETE BLOOD COUNT W/ DIFFERENTIAL Routine 02/20/2024 4:48 AM CDT COMPREHENSIVE METABOLIC PANEL Routine 02/20/2024 4:48 AM CDT APTT Routine 02/20/2024 4:48 AM CDT PROTHROMBIN TIME Routine 02/20/2024 4:48 AM CDT LACTIC ACID, VENOUS Routine 02/20/2024 4 :48 AM CDT PHOSPHORUS LEVEL Routine 02/20/2024 4:48 AM CDT MAGNESIUM LEVEL Routine 02/20/2024 4:48 AM CDT TYPE AND SCREEN Routine 02/20/2024 4:48 AM CDT PHOSPHORUS LEVEL Routine 02/19/2024 3:16 PM CDT MAGNESIUM LEVEL Routine 02/19/2024 3:16 PM CDT DIFFERENTIAL Routine 02/19/2024 4:55 AM CDT MDA CP PRMYEF Routine 02/19/2024 4:55 AM CDT MDA CP BLSTFL Routine 02/19/2024 4:55 AM CDT .CBC Routine 02/19/2024 4:55 AM CDT COMPLETE BLOOD COUNT W/ DIFFERENTIAL Routine 02/19/2024 4:55 AM CDT COMPREHENSIVE METABOLIC PANEL Routine 02/19/2024 4:55 AM CDT APTT Routine 02/19/2024 4:55 AM CDT PROTHROMBIN TIME Routine 02/19/2024 4:55 AM CDT LACTIC ACID, VENOUS Routine 02/19/2024 4 :55 AM CDT PHOSPHORUS LEVEL Routine 02/19/2024 4:55 AM CDT MAGNESIUM LEVEL Routine 02/19/2024 4:55 AM CDT PHOSPHORUS LEVEL Routine 02/18/2024 1:53 PM CDT MAGNESIUM LEVEL Routine 02/18/2024 1:53 PM CDT DIFFERENTIAL Routine 02/18/2024 5:30 AM CDT MDA CP PRMYEF Routine 02/18/2024 5:30 AM CDT MDA CP BLSTFL Routine 02/18/2024 5:30 AM CDT .CBC Routine 02/18/2024 5:30 AM CDT COMPLETE BLOOD COUNT W/ DIFFERENTIAL Routine 02/18/2024 5:30 AM CDT COMPREHENSIVE METABOLIC PANEL Routine 02/18/2024 5:30 AM CDT APTT Routine 02/18/2024 5:30 AM CDT PROTHROMBIN TIME Routine 02/18/2024 5:30 AM CDT LACTIC ACID, VENOUS Routine 02/18/2024 5 :30 AM CDT PHOSPHORUS LEVEL Routine 02/18/2024 5:30 AM CDT MAGNESIUM LEVEL Routine 02/18/2024 5:30 AM CDT PHOSPHORUS LEVEL Routine 02/17/2024 2:09 PM CDT MAGNESIUM LEVEL Routine 02/17/2024 2:09 PM CDT OSCILLATORY PEP Routine 02/17/2024 8:00 AM CDT DIFFERENTIAL Routine 02/17/2024 5:24 AM CDT MDA CP PRMYEF Routine 02/17/2024 5:24 AM CDT MDA CP BLSTFL Routine 02/17/2024 5:24 AM CDT .CBC Routine 02/17/2024 5:24 AM CDT COMPLETE BLOOD COUNT W/ DIFFERENTIAL Routine 02/17/2024 5:24 AM CDT COMPREHENSIVE METABOLIC PANEL Routine 02/17/2024 5:24 AM CDT APTT Routine 02/17/2024 5:24 AM CDT PROTHROMBIN TIME Routine 02/17/2024 5:24 AM CDT LACTIC ACID, VENOUS Routine 02/17/2024 5 :24 AM CDT PHOSPHORUS LEVEL Routine 02/17/2024 5:24 AM CDT MAGNESIUM LEVEL Routine 02/17/2024 5:24 AM CDT TYPE AND SCREEN Routine 02/17/2024 5:24 AM CDT HEMOGLOBIN Routine 02/16/2024 5:02 PM CDT PHOSPHORUS LEVEL Routine 02/16/2024 3:44 PM CDT MAGNESIUM LEVEL Routine 02/16/2024 3:44 PM CDT HEMOGLOBIN Routine 02/16/2024 10:37 AM CDT OSCILLATORY PEP Routine 02/16/2024 8:00 AM CDT DIFFERENTIAL Routine 02/16/2024 4:19 AM CDT MDA CP PRMYEF Routine 02/16/2024 4:19 AM CDT MDA CP BLSTFL Routine 02/16/2024 4:19 AM CDT .CBC Routine 02/16/2024 4:19 AM CDT COMPLETE BLOOD COUNT W/ DIFFERENTIAL Routine 02/16/2024 4:19 AM CDT COMPREHENSIVE METABOLIC PANEL Routine 02/16/2024 4:19 AM CDT APTT Routine 02/16/2024 4:19 AM CDT PROTHROMBIN TIME Routine 02/16/2024 4:19 AM CDT LACTIC ACID, VENOUS Routine 02/16/2024 4 :19 AM CDT PHOSPHORUS LEVEL Routine 02/16/2024 4:19 AM CDT MAGNESIUM LEVEL Routine 02/16/2024 4:19 AM CDT HEMOGLOBIN Routine 02/15/2024 10:49 PM CDT OSCILLATORY PEP Routine 02/15/2024 8:00 PM CDT TRANSFUSE RED BLOOD CELLS Routine 02/15/2024 4:30 PM CDT PHOSPHORUS LEVEL Routine 02/15/2024 2:53 PM CDT MAGNESIUM LEVEL Routine 02/15/2024 2:53 PM CDT OSCILLATORY PEP Routine 02/15/2024 2:00 PM CDT PREPARE RBC Routine 02/15/2024 2:00 PM CDT FLEXIBLE NASOPHARYNGEAL LARYNGOSCOPY Routine 02/15/2024 1:30 PM CDT POC GLUCOSE SCREEN Routine 02/15/2024 12:11 PM CDT HEMOGLOBIN Routine 02/15/2024 12:00 PM CDT OSCILLATORY PEP Routine 02/15/2024 8:00 AM CDT POC GLUCOSE SCREEN Routine 02/15/2024 6: 02 AM CDT DIFFERENTIAL Routine 02/15/2024 4:13 AM CDT MDA CP PRMYEF Routine 02/15/2024 4:13 AM CDT MDA CP BLSTFL Routine 02/15/2024 4:13 AM CDT .CBC Routine 02/15/2024 4:13 AM CDT COMPLETE BLOOD COUNT W/ DIFFERENTIAL Routine 02/15/2024 4:13 AM CDT COMPREHENSIVE METABOLIC PANEL Routine 02/15/2024 4:13 AM CDT APTT Routine 02/15/2024 4:13 AM CDT PROTHROMBIN TIME Routine 02/15/2024 4:13 AM CDT LACTIC ACID, VENOUS Routine 02/15/2024 4 :13 AM CDT PHOSPHORUS LEVEL Routine 02/15/2024 4:13 AM CDT MAGNESIUM LEVEL Routine 02/15/2024 4:13 AM CDT OSCILLATORY PEP Routine 02/15/2024 2:00 AM CDT POC GLUCOSE SCREEN Routine 02/14/2024 11:56 PM CDT OSCILLATORY PEP Routine 02/14/2024 8:00 PM CDT POC GLUCOSE SCREEN Routine 02/14/2024 6: 54 PM CDT HEMOGLOBIN Routine 02/14/2024 6:48 PM CDT FIBRINOGEN Routine 02/14/2024 6:48 PM CDT ARUP MISC TEST Routine 02/14/2024 3:13 PM CDT HEPARIN INDUCED PLATELET ANTIBODY Routine 02/14/2024 3:13 PM CDT PERIPHERAL SMR FOR DOC REVIEW Routine 02/14/2024 3:13 PM CDT PHOSPHORUS LEVEL Routine 02/14/2024 3:13 PM CDT MAGNESIUM LEVEL Routine 02/14/2024 3:13 PM CDT OSCILLATORY PEP Routine 02/14/2024 2:00 PM CDT POC GLUCOSE SCREEN Routine 02/14/2024 12:09 PM CDT HEMOGLOBIN Routine 02/14/2024 12:00 PM CDT OSCILLATORY PEP Routine 02/14/2024 8:00 AM CDT POC GLUCOSE SCREEN Routine 02/14/2024 5: 36 AM CDT TRANSFUSE PLATELETS Routine 02/14/2024 5 :10 AM CDT DIFFERENTIAL Routine 02/14/2024 4:00 AM CDT MDA CP PRMYEF Routine 02/14/2024 4:00 AM CDT MDA CP BLSTFL Routine 02/14/2024 4:00 AM CDT .CBC Routine 02/14/2024 4:00 AM CDT CALCIUM IONIZED, VENOUS Routine 02/14/20 4:00 AM CDT BASIC METABOLIC PANEL, CALCIUM IONIZED Routine 02/14/2024 4:00 AM CDT APTT Routine 02/14/2024 4:00 AM CDT PROTHROMBIN TIME Routine 02/14/2024 4:00 AM CDT COMPLETE BLOOD COUNT W/ DIFFERENTIAL Routine 02/14/2024 4:00 AM CDT LACTIC ACID, VENOUS Routine 02/14/2024 4 :00 AM CDT BASIC METABOLIC PANEL, CALCIUM IONIZED Routine 02/14/2024 4:00 AM CDT PHOSPHORUS LEVEL Routine 02/14/2024 4:00 AM CDT MAGNESIUM LEVEL Routine 02/14/2024 4:00 AM CDT TYPE AND SCREEN Routine 02/14/2024 4:00 AM CDT CTA PELVIS W WO CONTRAST STAT 02/14/2024 2:35 AM CDT PREPARE PLATELETS Routine 02/14/2024 2:2 2 AM CDT OSCILLATORY PEP Routine 02/14/2024 2:00 AM CDT POC GLUCOSE SCREEN Routine 02/14/2024 12:25 AM CDT EKG, 12-LEAD (PORTABLE) STAT 02/14/2024 PREPARE PLATELETS Routine 02/13/2024 10:14 PM CDT TRANSFUSE RED BLOOD CELLS Routine 02/13/2024 9:45 PM CDT BASIC METABOLIC PANEL, CALCIUM IONIZED Routine 02/13/2024 8:28 PM CDT PHOSPHORUS LEVEL Routine 02/13/2024 8:28 PM CDT MAGNESIUM LEVEL Routine 02/13/2024 8:28 PM CDT CALCIUM IONIZED, VENOUS Routine 02/13/20 8:26 PM CDT BASIC METABOLIC PANEL, CALCIUM IONIZED Routine 02/13/2024 8:26 PM CDT DIFFERENTIAL Routine 02/13/2024 8:24 PM CDT MDA CP PRMYEF Routine 02/13/2024 8:24 PM CDT MDA CP BLSTFL Routine 02/13/2024 8:24 PM CDT .CBC Routine 02/13/2024 8:24 PM CDT COMPLETE BLOOD COUNT W/ DIFFERENTIAL Routine 02/13/2024 8:24 PM CDT POC GLUCOSE SCREEN Routine 02/13/2024 8: 02 PM CDT OSCILLATORY PEP Routine 02/13/2024 7:38 PM CDT OSCILLATORY PEP Routine 02/13/2024 7:38 PM CDT OSCILLATORY PEP Routine 02/13/2024 7:38 PM CDT OSCILLATORY PEP Routine 02/13/2024 7:[address] ABDOMEN PELVIS WO CONTRAST STAT 02/13/2024 7:14 PM CDT POC GLUCOSE SCREEN Routine 02/13/2024 6: 02 PM CDT POC GLUCOSE SCREEN Routine 02/13/2024 11:53 AM CDT TRANSFUSE RED BLOOD CELLS Routine 02/13/2024 10:35 AM CDT PERIPHERAL SMR FOR DOC REVIEW Routine 02/13/2024 9:42 AM CDT RETICULOCYTE COUNT AUTOMATED Routine 02/13/2024 9:42 AM CDT LACTATE DEHYDROGENASE Routine 02/13/2024 9:42 AM CDT HAPTOGLOBIN Routine 02/13/2024 9:42 AM CDT PREPARE RBC Routine 02/13/2024 8:42 AM CDT POC GLUCOSE SCREEN Routine 02/13/2024 6: 03 AM CDT DIFFERENTIAL Routine 02/13/2024 5:25 AM CDT MDA CP PRMYEF Routine 02/13/2024 5:25 AM CDT MDA CP BLSTFL Routine 02/13/2024 5:25 AM CDT CALCIUM IONIZED, VENOUS Routine 02/13/20 5:25 AM CDT BASIC METABOLIC PANEL, CALCIUM IONIZED Routine 02/13/2024 5:25 AM CDT .CBC Routine 02/13/2024 5:25 AM CDT BLOOD GAS VENOUS Routine 02/13/2024 5:25 AM CDT FOLATE LEVEL Routine 02/13/2024 5:25 AM CDT VITAMIN B12 LEVEL Routine 02/13/2024 5:2 5 AM CDT TRANSFERRIN Routine 02/13/2024 5:25 AM CDT FERRITIN Routine 02/13/2024 5:25 AM CDT IRON LEVEL Routine 02/13/2024 5:25 AM CDT LACTIC ACID, VENOUS Routine 02/13/2024 5 :25 AM CDT BASIC METABOLIC PANEL, CALCIUM IONIZED Routine 02/13/2024 5:25 AM CDT PHOSPHORUS LEVEL Routine 02/13/2024 5:25 AM CDT MAGNESIUM LEVEL Routine 02/13/2024 5:25 AM CDT COMPLETE BLOOD COUNT W/ DIFFERENTIAL Routine 02/13/2024 5:25 AM CDT POC GLUCOSE SCREEN Routine 02/12/2024 11:50 PM CDT CALCIUM IONIZED, VENOUS Routine 02/12/20 24 9:37 PM CDT BASIC METABOLIC PANEL, CALCIUM IONIZED Routine 02/12/2024 9:37 PM CDT BASIC METABOLIC PANEL, CALCIUM IONIZED Routine 02/12/2024 9:37 PM CDT PHOSPHORUS LEVEL Routine 02/12/2024 9:37 PM CDT MAGNESIUM LEVEL Routine 02/12/2024 9:37 PM CDT POC GLUCOSE SCREEN Routine 02/12/2024 6: 06 PM CDT POC GLUCOSE SCREEN Routine 02/12/2024 1: 37 PM CDT OSCILLATORY PEP Routine 02/12/2024 8:00 AM CDT POC GLUCOSE SCREEN Routine 02/12/2024 6: 00 AM CDT DIFFERENTIAL Routine 02/12/2024 4:42 AM CDT MDA CP PRMYEF Routine 02/12/2024 4:42 AM CDT MDA CP BLSTFL Routine 02/12/2024 4:42 AM CDT CALCIUM IONIZED, VENOUS Routine 02/12/20 24 4:42 AM CDT BASIC METABOLIC PANEL, CALCIUM IONIZED Routine 02/12/2024 4:42 AM CDT .CBC Routine 02/12/2024 4:42 AM CDT LACTIC ACID, VENOUS Routine 02/12/2024 4 :42 AM CDT BASIC METABOLIC PANEL, CALCIUM IONIZED Routine 02/12/2024 4:42 AM CDT PHOSPHORUS LEVEL Routine 02/12/2024 4:42 AM CDT MAGNESIUM LEVEL Routine 02/12/2024 4:42 AM CDT COMPLETE BLOOD COUNT W/ DIFFERENTIAL Routine 02/12/2024 4:42 AM CDT POC GLUCOSE SCREEN Routine 02/12/2024 1: 04 AM CDT POC GLUCOSE SCREEN Routine 02/11/2024 8: 34 PM CDT OSCILLATORY PEP Routine 02/11/2024 8:00 PM CDT OSCILLATORY PEP Routine 02/11/2024 2:37 PM CDT OSCILLATORY PEP Routine 02/11/2024 2:37 PM CDT OSCILLATORY PEP Routine 02/11/2024 2:37 PM CDT OSCILLATORY PEP Routine 02/11/2024 2:37 PM CDT URINALYSIS WITH MICROSCOPIC Routine 02/11/2024 12:50 PM CDT URINE CULTURE Routine 02/11/2024 12:50 PM CDT CALCIUM IONIZED, VENOUS Routine 02/11/20 12:44 PM CDT BASIC METABOLIC PANEL, CALCIUM IONIZED Routine 02/11/2024 12:44 PM CDT MDA CP HEMOGRAM Routine 02/11/2024 12:44 PM CDT BASIC METABOLIC PANEL, CALCIUM IONIZED Routine 02/11/2024 12:44 PM CDT PHOSPHORUS LEVEL Routine 02/11/2024 12:44 PM CDT MAGNESIUM LEVEL Routine 02/11/2024 12:44 PM CDT COMPLETE BLOOD COUNT W/ INDICES Routine 02/11/2024 12:44 PM CDT POC GLUCOSE SCREEN Routine 02/11/2024 11:52 AM CDT TRANSFUSE RED BLOOD CELLS Routine 02/11/2024 5:24 AM CDT POC GLUCOSE SCREEN Routine 02/11/2024 5: 20 AM CDT PREPARE RBC Routine 02/11/2024 2:11 AM CDT DIFFERENTIAL Routine 02/11/2024 12:56 AM CDT MDA CP PRMYEF Routine 02/11/2024 12:56 AM CDT MDA CP BLSTFL Routine 02/11/2024 12:56 AM CDT CALCIUM IONIZED, VENOUS Routine 02/11/20 24 12:56 AM CDT BASIC METABOLIC PANEL, CALCIUM IONIZED Routine 02/11/2024 12:56 AM CDT .CBC Routine 02/11/2024 12:56 AM CDT LACTIC ACID, VENOUS Routine 02/11/2024 12:56 AM CDT BASIC METABOLIC PANEL, CALCIUM IONIZED Routine 02/11/2024 12:56 AM CDT PHOSPHORUS LEVEL Routine 02/11/2024 12:56 AM CDT MAGNESIUM LEVEL Routine 02/11/2024 12:56 AM CDT COMPLETE BLOOD COUNT W/ DIFFERENTIAL Routine 02/11/2024 12:56 AM CDT TYPE AND SCREEN Routine 02/11/2024 12:56 AM CDT XR CHEST 1 VW Routine 02/11/2024 12:51 AM CDT POC GLUCOSE SCREEN Routine 02/10/2024 11:23 PM CDT POC GLUCOSE SCREEN Routine 02/10/2024 5: 43 PM CDT URINALYSIS WITH MICROSCOPIC Routine 02/10/2024 4:38 PM CDT CALCIUM IONIZED, VENOUS Routine 02/10/20 24 2:53 PM CDT BASIC METABOLIC PANEL, CALCIUM IONIZED Routine 02/10/2024 2:53 PM CDT BASIC METABOLIC PANEL, CALCIUM IONIZED Routine 02/10/2024 2:53 PM CDT PHOSPHORUS LEVEL Routine 02/10/2024 2:53 PM CDT MAGNESIUM LEVEL Routine 02/10/2024 2:53 PM CDT POC GLUCOSE SCREEN Routine 02/10/2024 11:31 AM CDT OSCILLATORY PEP Routine 02/10/2024 8:00 AM CDT POC GLUCOSE SCREEN Routine 02/10/2024 5: 18 AM CDT XR CHEST 1 VW Routine 02/10/2024 2:02 AM CDT OSCILLATORY PEP Routine 02/10/2024 2:00 AM CDT POC GLUCOSE SCREEN Routine 02/10/2024 12:50 AM CDT NT PRO BNP Add-On 02/10/2024 12:50 AM CDT DIFFERENTIAL Routine 02/10/2024 12:50 AM CDT MDA CP PRMYEF Routine 02/10/2024 12:50 AM CDT MDA CP BLSTFL Routine 02/10/2024 12:50 AM CDT CALCIUM IONIZED, VENOUS Routine 02/10/20 12:50 AM CDT BASIC METABOLIC PANEL, CALCIUM IONIZED Routine 02/10/2024 12:50 AM CDT .CBC Routine 02/10/2024 12:50 AM CDT LACTIC ACID, VENOUS Routine 02/10/2024 12:50 AM CDT BASIC METABOLIC PANEL, CALCIUM IONIZED Routine 02/10/2024 12:50 AM CDT PHOSPHORUS LEVEL Routine 02/10/2024 12:50 AM CDT MAGNESIUM LEVEL Routine 02/10/2024 12:50 AM CDT COMPLETE BLOOD COUNT W/ DIFFERENTIAL Routine 02/10/2024 12:50 AM CDT BASIC METABOLIC PANEL, CALCIUM IONIZED Routine 02/09/2024 6:31 PM CDT PHOSPHORUS LEVEL Routine 02/09/2024 6:31 PM CDT MAGNESIUM LEVEL Routine 02/09/2024 6:31 PM CDT CALCIUM IONIZED, VENOUS Routine 02/09/20 6:30 PM CDT LACTIC ACID, ARTERIAL Routine 02/09/2024 6:30 PM CDT BASIC METABOLIC PANEL, CALCIUM IONIZED Routine 02/09/2024 6:30 PM CDT POC GLUCOSE SCREEN Routine 02/09/2024 5: 17 PM CDT OSCILLATORY PEP Routine 02/09/2024 2:00 PM CDT POC GLUCOSE SCREEN Routine 02/09/2024 11:30 AM CDT XR HIP 2 OR 3 VW W PELVIS RIGHT STAT 02/09/2024 10:03 AM CDT OSCILLATORY PEP Routine 02/09/2024 8:00 AM CDT POC GLUCOSE SCREEN Routine 02/09/2024 5: 24 AM CDT OSCILLATORY PEP Routine 02/09/2024 2:00 AM CDT DIFFERENTIAL Routine 02/09/2024 1:26 AM CDT MDA CP PRMYEF Routine 02/09/2024 1:26 AM CDT MDA CP BLSTFL Routine 02/09/2024 1:26 AM CDT CALCIUM IONIZED, VENOUS Routine 02/09/20 1:26 AM CDT BASIC METABOLIC PANEL, CALCIUM IONIZED Routine 02/09/2024 1:26 AM CDT .CBC Routine 02/09/2024 1:26 AM CDT LACTIC ACID, ARTERIAL Routine 02/09/2024 1:26 AM CDT BASIC METABOLIC PANEL, CALCIUM IONIZED Routine 02/09/2024 1:26 AM CDT PHOSPHORUS LEVEL Routine 02/09/2024 1:26 AM CDT MAGNESIUM LEVEL Routine 02/09/2024 1:26 AM CDT COMPLETE BLOOD COUNT W/ DIFFERENTIAL Routine 02/09/2024 1:26 AM CDT XR CHEST 1 VW Routine 02/09/2024 1:00 AM CDT POC GLUCOSE SCREEN Routine 02/09/2024 12:04 AM CDT OSCILLATORY PEP Routine 02/08/2024 8:00 PM CDT POC GLUCOSE SCREEN Routine 02/08/2024 5: 38 PM CDT CALCIUM IONIZED, VENOUS Routine 02/08/20 3:55 PM CDT BASIC METABOLIC PANEL, CALCIUM IONIZED Routine 02/08/2024 3:55 PM CDT LACTIC ACID, ARTERIAL Routine 02/08/2024 3:55 PM CDT BASIC METABOLIC PANEL, CALCIUM IONIZED Routine 02/08/2024 3:55 PM CDT PHOSPHORUS LEVEL Routine 02/08/2024 3:55 PM CDT MAGNESIUM LEVEL Routine 02/08/2024 3:55 PM CDT BLOOD GAS ARTERIAL Routine 02/08/2024 3: 55 PM CDT OSCILLATORY PEP Routine 02/08/2024 2:00 PM CDT POC GLUCOSE SCREEN Routine 02/08/2024 11:40 AM CDT OSCILLATORY PEP Routine 02/08/2024 11:33 AM CDT OSCILLATORY PEP Routine 02/08/2024 11:33 AM CDT OSCILLATORY PEP Routine 02/08/2024 11:33 AM CDT POC GLUCOSE SCREEN Routine 02/08/2024 5: 03 AM CDT XR CHEST 1 VW Routine 02/08/2024 1:28 AM CDT HEPATIC FUNCTION PANEL Add-On 12:43 AM CDT DIFFERENTIAL Routine 02/08/2024 12:43 AM CDT MDA CP PRMYEF Routine 02/08/2024 12:43 AM CDT MDA CP BLSTFL Routine 02/08/2024 12:43 AM CDT CALCIUM IONIZED, VENOUS Routine 02/08/20 12:43 AM CDT BASIC METABOLIC PANEL, CALCIUM IONIZED Routine 02/08/2024 12:43 AM CDT .CBC Routine 02/08/2024 12:43 AM CDT LACTIC ACID, ARTERIAL Routine 02/08/2024 12:43 AM CDT BASIC METABOLIC PANEL, CALCIUM IONIZED Routine 02/08/2024 12:43 AM CDT PHOSPHORUS LEVEL Routine 02/08/2024 12:43 AM CDT MAGNESIUM LEVEL Routine 02/08/2024 12:43 AM CDT BLOOD GAS ARTERIAL Routine 02/08/2024 12:43 AM CDT COMPLETE BLOOD COUNT W/ DIFFERENTIAL Routine 02/08/2024 12:43 AM CDT POC GLUCOSE SCREEN Routine 02/07/2024 11:30 PM CDT POC GLUCOSE SCREEN Routine 02/07/2024 6: 03 PM CDT CALCIUM IONIZED, VENOUS Routine 02/07/20 24 1:05 PM CDT BASIC METABOLIC PANEL, CALCIUM IONIZED Routine 02/07/2024 1:05 PM CDT LACTIC ACID, ARTERIAL Routine 02/07/2024 1:05 PM CDT BASIC METABOLIC PANEL, CALCIUM IONIZED Routine 02/07/2024 1:05 PM CDT PHOSPHORUS LEVEL Routine 02/07/2024 1:05 PM CDT MAGNESIUM LEVEL Routine 02/07/2024 1:05 PM CDT BLOOD GAS ARTERIAL Routine 02/07/2024 1: 05 PM CDT POC GLUCOSE SCREEN Routine 02/07/2024 11:25 AM CDT POC GLUCOSE SCREEN Routine 02/07/2024 5: 14 AM CDT XR CHEST 1 VW Routine 02/07/2024 12:42 AM CDT DIFFERENTIAL Routine 02/07/2024 12:38 AM CDT MDA CP PRMYEF Routine 02/07/2024 12:38 AM CDT MDA CP BLSTFL Routine 02/07/2024 12:38 AM CDT CALCIUM IONIZED, VENOUS Routine 02/07/20 12:38 AM CDT BASIC METABOLIC PANEL, CALCIUM IONIZED Routine 02/07/2024 12:38 AM CDT .CBC Routine 02/07/2024 12:38 AM CDT LACTIC ACID, ARTERIAL Routine 02/07/2024 12:38 AM CDT BASIC METABOLIC PANEL, CALCIUM IONIZED Routine 02/07/2024 12:38 AM CDT PHOSPHORUS LEVEL Routine 02/07/2024 12:38 AM CDT MAGNESIUM LEVEL Routine 02/07/2024 12:38 AM CDT BLOOD GAS ARTERIAL Routine 02/07/2024 12:38 AM CDT COMPLETE BLOOD COUNT W/ DIFFERENTIAL Routine 02/07/2024 12:38 AM CDT POC GLUCOSE SCREEN Routine 02/06/2024 11:09 PM CDT POC GLUCOSE SCREEN Routine 02/06/2024 5: 41 PM CDT CALCIUM IONIZED, VENOUS Routine 02/06/20 2:05 PM CDT BASIC METABOLIC PANEL, CALCIUM IONIZED Routine 02/06/2024 2:05 PM CDT LACTIC ACID, ARTERIAL Routine 02/06/2024 2:05 PM CDT BASIC METABOLIC PANEL, CALCIUM IONIZED Routine 02/06/2024 2:05 PM CDT PHOSPHORUS LEVEL Routine 02/06/2024 2:05 PM CDT MAGNESIUM LEVEL Routine 02/06/2024 2:05 PM CDT BLOOD GAS ARTERIAL Routine 02/06/2024 2: 05 PM CDT POC GLUCOSE SCREEN Routine 02/06/2024 11:53 AM CDT ECHO AGITATED SALINE FOR PULMONARY PRESSURES W CONTRAST STAT 02/06/2024 9:38 AM CDT CALCIUM IONIZED, VENOUS Routine 02/06/20 8:45 AM CDT XR CHEST 1 VW Routine 02/06/2024 8:07 AM CDT POC GLUCOSE SCREEN Routine 02/06/2024 5: 29 AM CDT VRE CULTURE Routine 02/06/2024 12:23 AM CDT CORTISOL, TOTAL Add-On 02/06/2024 12:20 AM CDT DIFFERENTIAL Routine 02/06/2024 12:20 AM CDT BASIC METABOLIC PANEL, CALCIUM TOTAL Add-On 02/06/2024 12:20 AM CDT MDA CP PRMYEF Routine 02/06/2024 12:20 AM CDT MDA CP BLSTFL Routine 02/06/2024 12:20 AM CDT .CBC Routine 02/06/2024 12:20 AM CDT PHOSPHORUS LEVEL Routine 02/06/2024 12:20 AM CDT MAGNESIUM LEVEL Routine 02/06/2024 12:20 AM CDT COMPLETE BLOOD COUNT W/ DIFFERENTIAL Routine 02/06/2024 12:20 AM CDT TYPE AND SCREEN Routine 02/06/2024 12:20 AM CDT LACTIC ACID, ARTERIAL Routine 02/06/2024 12:20 AM CDT BLOOD GAS ARTERIAL Routine 02/06/2024 12:20 AM CDT EKG, 12-LEAD (PORTABLE) STAT 02/06/2024 POC GLUCOSE SCREEN Routine 02/05/2024 11:20 PM CDT POC GLUCOSE SCREEN Routine 02/05/2024 5: 20 PM CDT LACTIC ACID, ARTERIAL Routine 02/05/2024 4:23 PM CDT BLOOD GAS ARTERIAL Routine 02/05/2024 4: 23 PM CDT VERIFY CATHETER TIP PLACEMENT Routine 02/05/2024 3:30 PM CDT Acute respiratory distress LEGIONELLA ANTIGEN, URINE Routine 02/05/2024 2:48 PM CDT XR CHEST 1 VW POST IMPLANT STAT 02/05/2024 2:34 PM CDT VAP PICC INSERTION W US >5 YEARS OLD Routine 02/05/2024 2:09 PM CDT AFB SMEAR Routine 02/05/2024 11:17 AM CDT AFB CULTURE W/ SMEAR - PERFORMABLE Routine 02/05/2024 11:17 AM CDT CMV QUANT PCR, BRONCH WASH Routine 02/05/2024 11:17 AM CDT PNEUMOCYSTIS QUANT PCR, BRONCH WASH Routine 02/05/2024 11:17 AM CDT RESPIRATORY VIRAL PANEL, SEND OUT Routine 02/05/2024 11:17 AM CDT FUNGAL CULTURE W/ SMEAR Routine 02/05/20 11:17 AM CDT LOWER RESPIRATORY CULTURE W/ GRAM STAIN Routine 02/05/2024 11:17 AM CDT POC GLUCOSE SCREEN Routine 02/05/2024 11:16 AM CDT BRONCHOSCOPY WITH CONSCIOUS SEDATION Routine 02/05/2024 11:00 AM CDT Acute respiratory failure with hypoxia Bilateral pneumonia CALCIUM IONIZED, VENOUS STAT 02/05/20 10:45 AM CDT BASIC METABOLIC PANEL, CALCIUM IONIZED STAT 02/05/2024 10:45 AM CDT BASIC METABOLIC PANEL, CALCIUM IONIZED STAT 02/05/2024 10:45 AM CDT CARDIAC PANEL Routine 02/05/2024 10:45 AM CDT POC GLUCOSE SCREEN Routine 02/05/2024 9: 40 AM CDT DIFFERENTIAL Routine 02/05/2024 9:13 AM CDT MDA CP PRMYEF Routine 02/05/2024 9:13 AM CDT MDA CP BLSTFL Routine 02/05/2024 9:13 AM CDT .CBC Routine 02/05/2024 9:13 AM CDT LACTIC ACID, ARTERIAL Routine 02/05/2024 9:13 AM CDT PHOSPHORUS LEVEL Routine 02/05/2024 9:13 AM CDT MAGNESIUM LEVEL Routine 02/05/2024 9:13 AM CDT BLOOD GAS ARTERIAL Routine 02/05/2024 9: 13 AM CDT CARDIAC PANEL Routine 02/05/2024 9:13 AM CDT COMPLETE BLOOD COUNT W/ DIFFERENTIAL Routine 02/05/2024 9:13 AM CDT XR ABDOMEN 1 VW PORTABLE Routine 02/05/2024 8:[address] ABDOMEN PELVIS WO CONTRAST Routine 02/05/2024 8:[address] CHEST WO CONTRAST STAT 02/05/2024 8:[address] HEAD WO CONTRAST STAT 02/05/2024 8 :07 AM CDT ENDOTRACHEAL TUBE ADJUSTMENT Routine 02/05/2024 6:01 AM CDT URINALYSIS MICROSCOPIC EXAM STAT 02/05/2024 5:54 AM CDT URINALYSIS WITH MICROSCOPIC IF INDICATED STAT 02/05/2024 5:54 AM CDT URINE CULTURE Routine 02/05/2024 5:54 AM CDT POC GLUCOSE SCREEN Routine 02/05/2024 5: 13 AM CDT VRE CULTURE Routine 02/05/2024 1:06 AM [employer] FIBRINOGEN STAT 02/05/2024 1:04 AM [employer] APTT STAT 02/05/2024 1:04 AM [employer] PROTHROMBIN TIME STAT 02/05/2024 1:04 AM [employer] LACTATE DEHYDROGENASE STAT 02/05/2024 1:04 AM [employer] BLOOD CULTURE Routine 02/05/2024 1:04 AM [employer] POC GLUCOSE SCREEN Routine 02/05/2024 12:58 AM [employer] DIFFERENTIAL STAT 02/05/2024 12:57 AM [employer] MDA CP PRMYEF STAT 02/05/2024 12:57 AM [employer] MDA CP BLSTFL STAT 02/05/2024 12:57 AM [employer] .CBC STAT 02/05/2024 12:57 AM [employer] CALCIUM IONIZED, VENOUS STAT 02/05/20 12:57 AM [employer] BASIC METABOLIC PANEL, CALCIUM IONIZED STAT 02/05/2024 12:57 AM [employer] LACTIC ACID, VENOUS STAT 02/05/2024 12:57 AM [employer] CARDIAC PANEL Routine 02/05/2024 12:57 AM [employer] COMPLETE BLOOD COUNT W/ DIFFERENTIAL STAT 02/05/2024 12:57 AM [employer] ALBUMIN LEVEL STAT 02/05/2024 12:57 AM [employer] ALKALINE PHOSPHATASE STAT 02/05/2024 12:57 AM [employer] [employer] FRACTIONATED BILIRUBIN STAT 12:57 AM [employer] [employer] ALANINE AMINOTRANSFERASE STAT 02/05/2024 12:57 AM [employer] [employer] ASPARTATE AMINOTRANSFERASE STAT 02/05/2024 12:57 AM [employer] [employer] PHOSPHORUS LEVEL STAT 02/05/2024 12:57 AM [employer] [employer] MAGNESIUM LEVEL STAT 02/05/2024 12:57 AM [employer] [employer] BASIC METABOLIC PANEL, CALCIUM IONIZED STAT 02/05/2024 12:57 AM [employer] [employer] BLOOD GAS ARTERIAL STAT 02/05/2024 12:57 AM [employer] [employer] BLOOD CULTURE Routine 02/05/2024 12:57 AM [employer] [employer] HC U/S GUID FOR VASC ACCESS Routine 02/05/2024 12:44 AM [employer] [employer] Acute hypoxemic respiratory failure HC ARTERIAL LINE FOR BP MON Routine 02/05/2024 12:44 AM [employer] [employer] Acute hypoxemic respiratory failure DC ARTL CATHJ/CANNULJ MNTR/TRANSFUSION SPX PRQ Routine 02/05/2024 12:44 AM [employer] [employer] Acute hypoxemic respiratory failure XR CHEST 1 VW STAT 02/05/2024 12:29 AM [employer] [employer] PNEUMOCYSTIS QUANT PCR, BAL Routine 02/05/2024 12:19 AM [employer] [employer] AFB SMEAR Routine 02/05/2024 12:18 AM [employer] [employer] AFB CULTURE W/ SMEAR - PERFORMABLE Routine 02/05/2024 12:18 AM [employer] [employer] LEGIONELLA CULTURE Routine 02/05/2024 12:18 AM [employer] [employer] FUNGAL CULTURE W/ SMEAR Routine 02/05/20 12:18 AM [employer] [employer] LOWER RESPIRATORY CULTURE W/ GRAM STAIN Routine 02/05/2024 12:18 AM [employer] [employer] EKG, 12-LEAD (PORTABLE) STAT 02/05/2024 INTUBATION Routine 02/04/2024 11:48 PM [employer] [employer] XR CHEST 1 VW PORTABLE STAT 11:29 PM [employer] [employer] XR CHEST 1 VW Routine 02/04/2024 1:02 PM [employer] [employer] BLOOD GAS ARTERIAL Routine 02/04/2024 7: 00 AM [employer] [employer] DIFFERENTIAL Routine 02/04/2024 2:31 AM [employer] [employer] MDA CP PRMYEF Routine 02/04/2024 2:31 AM [employer] [employer] MDA CP BLSTFL Routine 02/04/2024 2:31 AM [employer] [employer] .CBC Routine 02/04/2024 2:31 AM [employer] [employer] CARDIAC PANEL Routine 02/04/2024 2:31 AM [employer] [employer] PHOSPHORUS LEVEL Routine 02/04/2024 2:31 AM [employer] [employer] MAGNESIUM LEVEL Routine 02/04/2024 2:31 AM [employer] [employer] BASIC METABOLIC PANEL, CALCIUM TOTAL Routine 02/04/2024 2:31 AM [employer] [employer] COMPLETE BLOOD COUNT W/ DIFFERENTIAL Routine 02/04/2024 2:31 AM [employer] [employer] BLOOD CULTURE STAT 02/03/2024 7:08 PM [employer] [employer] URINALYSIS WITH MICROSCOPIC STAT 02/03/2024 5:56 PM [employer] [employer] URINE CULTURE Routine 02/03/2024 5:56 PM [employer] [employer] US LIVER Routine 02/03/2024 1:51 PM [employer] [employer] BLOOD CULTURE STAT 02/03/2024 9:48 AM [employer] [employer] BLOOD GAS ARTERIAL STAT 02/03/2024 9: 23 AM [employer] [employer] SEDIMENTATION RATE NON-AUTOMATED STAT 02/03/2024 9:16 AM [employer] [employer] LACTIC ACID, VENOUS STAT 02/03/2024 9 :16 AM [employer] [employer] DIFFERENTIAL STAT 02/03/2024 9:10 AM [employer] [employer] MDA CP PRMYEF STAT 02/03/2024 9:10 AM [employer] [employer] MDA CP BLSTFL STAT 02/03/2024 9:10 AM [employer] [employer] .CBC STAT 02/03/2024 9:10 AM [employer] [employer] ELECTROLYTE PANEL STAT 02/03/2024 9:1 0 AM [employer] [employer] HC PROCALCITONIN (PCT) STAT 9:10 AM [employer] [employer] HEPATIC FUNCTION PANEL STAT 9:10 AM [employer] [employer] C REACTIVE PROTEIN STAT 02/03/2024 9: 10 AM [employer] [employer] COMPLETE BLOOD COUNT W/ DIFFERENTIAL STAT 02/03/2024 9:10 AM [employer] [employer] AMMONIA LEVEL STAT 02/03/2024 9:10 AM [employer] [employer] BLOOD CULTURE STAT 02/03/2024 9:10 AM [employer] [employer] RESPIRATORY MULTIPLEX PCR PANEL, NASOPHARYNGEAL SWAB Routine 02/03/2024 8:46 AM [employer] [employer] XR CHEST 1 VW STAT 02/03/2024 8:43 AM [employer] [employer] URINE CULTURE Routine 02/03/2024 8:07 AM [employer] [employer] POC GLUCOSE SCREEN Routine 02/03/2024 7: 32 AM [employer] [employer] DIFFERENTIAL Routine 02/03/2024 4:05 AM [employer] [employer] MDA CP PRMYEF Routine 02/03/2024 4:05 AM [employer] [employer] .CBC Routine 02/03/2024 4:05 AM [employer] [employer] TYPE AND SCREEN Routine 02/03/2024 4:05 AM [employer] [employer] PHOSPHORUS LEVEL Routine 02/03/2024 4:05 AM [employer] [employer] MAGNESIUM LEVEL Routine 02/03/2024 4:05 AM [employer] [employer] BASIC METABOLIC PANEL, CALCIUM TOTAL Routine 02/03/2024 4:05 AM [employer] [employer] COMPLETE BLOOD COUNT W/ DIFFERENTIAL Routine 02/03/2024 4:05 AM [employer] [employer] URINALYSIS MICROSCOPIC EXAM Routine 02/03/2024 2:16 AM [employer] [employer] URINALYSIS WITH MICROSCOPIC IF INDICATED Routine 02/03/2024 2:16 [address] [facility] [employer] [address] HEAD WO CONTRAST STAT 02/03/2024 1 :36 AM [employer] [employer] EKG, 12-LEAD (PORTABLE) Routine 02/03/2024 POC GLUCOSE SCREEN Routine 02/02/2024 9: 24 PM [employer] [employer] US LEG VENOUS DOPPLER BILATERAL Routine 02/02/2024 7:23 PM [employer] DIFFERENTIAL Routine 02/02/2024 5:25 AM [employer] MDA CP PRMYEF Routine 02/02/2024 5:25 AM [employer] .CBC Routine 02/02/2024 5:25 AM [employer] PHOSPHORUS LEVEL Routine 02/02/2024 5:25 AM [employer] MAGNESIUM LEVEL Routine 02/02/2024 5:25 AM [employer] BASIC METABOLIC PANEL, CALCIUM TOTAL Routine 02/02/2024 5:25 AM [employer] COMPLETE BLOOD COUNT W/ DIFFERENTIAL Routine 02/02/2024 5:25 AM [employer] OSCILLATORY PEP Routine 02/01/2024 8:00 PM [employer] OSCILLATORY PEP Routine 02/01/2024 2:00 PM [employer] OSCILLATORY PEP Routine 02/01/2024 8:00 AM [employer] DIFFERENTIAL Routine 02/01/2024 5:29 AM [employer] .CBC Routine 02/01/2024 5:29 AM [employer] PHOSPHORUS LEVEL Routine 02/01/2024 5:29 AM [employer] MAGNESIUM LEVEL Routine 02/01/2024 5:29 AM [employer] BASIC METABOLIC PANEL, CALCIUM TOTAL Routine 02/01/2024 5:29 AM [employer] COMPLETE BLOOD COUNT W/ DIFFERENTIAL Routine 02/01/2024 5:29 AM [employer] OSCILLATORY PEP Routine 01/31/2024 8:00 PM [employer] OSCILLATORY PEP Routine 01/31/2024 2:00 PM [employer] OSCILLATORY PEP Routine 01/31/2024 10:58 AM [employer] OSCILLATORY PEP Routine 01/31/2024 10:58 AM [employer] OSCILLATORY PEP Routine 01/31/2024 10:58 AM [employer] DIFFERENTIAL Routine 01/31/2024 3:58 AM [employer] MDA CP PRMYEF Routine 01/31/2024 3:58 AM [employer] .CBC Routine 01/31/2024 3:58 AM [employer] PHOSPHORUS LEVEL Routine 01/31/2024 3:58 AM [employer] MAGNESIUM LEVEL Routine 01/31/2024 3:58 AM [employer] BASIC METABOLIC PANEL, CALCIUM TOTAL Routine 01/31/2024 3:58 AM [employer] COMPLETE BLOOD COUNT W/ DIFFERENTIAL Routine 01/31/2024 3:58 AM [employer] XR PELVIS 1 OR 2 VW STAT 01/30/2024 7 :44 PM [employer] POC GLUCOSE SCREEN Routine 01/30/2024 7: 10 PM [employer] ARTERIAL BLOOD GAS PLUS STAT 01/30/20 5:58 PM [employer] TRANSFUSE RED BLOOD CELLS Routine 01/30/2024 5:31 PM [employer] PATHOLOGY SURGICAL INTERPRETATION Routine 01/30/2024 5:26 PM [employer] Cholangiocarcinom a of biliary tract, 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 Pathological fracture, right femur, initial encounter for fracture TRANSFUSE PLATELETS Routine 01/30/2024 5 :03 PM [employer] CURETTAGE OF BONE CYST OR BENIGN TUMOR OF FEMUR 01/30/2024 2:44 PM [employer] Cholangiocarcinom a of biliary tract, 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 Pathological fracture, right femur, initial encounter for fracture Special Needs Need start time prior to 3pmRequesting an earlier time ACETABULOPLASTY WITH RESECTION OF FEMORAL HEAD (EG, GIRDLESTONE PROCEDURE) 01/30/2024 2:44 PM [employer] Cholangiocarcinom a of biliary tract, 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 Pathological fracture, right femur, initial encounter for fracture Special Needs Need start time prior to 3pmRequesting an earlier time POC GLUCOSE SCREEN Routine 01/30/2024 2: 18 PM [employer] XR CHEST 1 VW PORTABLE STAT 11:00 AM [employer] BLOOD CULTURE Routine 01/30/2024 10:25 AM [employer] BLOOD CULTURE Routine 01/30/2024 9:52 AM [employer] DIFFERENTIAL Routine 01/30/2024 5:01 AM [employer] .CBC Routine 01/30/2024 5:01 AM [employer] PHOSPHORUS LEVEL Routine 01/30/2024 5:01 AM [employer] MAGNESIUM LEVEL Routine 01/30/2024 5:01 AM [employer] BASIC METABOLIC PANEL, CALCIUM TOTAL Routine 01/30/2024 5:01 AM [employer] COMPLETE BLOOD COUNT W/ DIFFERENTIAL Routine 01/30/2024 5:01 AM [employer] LOWER RESPIRATORY CULTURE W/ GRAM STAIN Routine 01/29/2024 5:57 PM [employer] MRSA SCREENING CULTURE Routine 5:12 PM [employer] TRANSFUSE RED BLOOD CELLS Routine 01/29/2024 3:14 PM [employer] PREPARE PLATELETS Routine 01/29/2024 2:5 5 PM [employer] PREPARE PLATELETS Routine 01/29/2024 2:4 9 PM [employer] XR CHEST 1 VW Routine 01/29/2024 12:49 PM [employer] PREPARE PLATELETS Routine 01/29/2024 12:29 PM [employer] PREPARE FRESH FROZEN PLASMA Routine 01/29/2024 12:28 PM [employer] PREPARE RBC Routine 01/29/2024 12:27 PM [employer] PREPARE RBC Routine 01/29/2024 12:04 PM [employer] HC PROCALCITONIN (PCT) Add-On 4:41 AM [employer] DIFFERENTIAL Routine 01/29/2024 4:41 AM [employer] .CBC Routine 01/29/2024 4:41 AM [employer] PHOSPHORUS LEVEL Routine 01/29/2024 4:41 AM [employer] MAGNESIUM LEVEL Routine 01/29/2024 4:41 AM [employer] BASIC METABOLIC PANEL, CALCIUM TOTAL Routine 01/29/2024 4:41 AM [employer] COMPLETE BLOOD COUNT W/ DIFFERENTIAL Routine 01/29/2024 4:41 AM [employer] TYPE AND SCREEN Routine 01/29/2024 4:41 AM [employer] .CBC Routine 01/28/2024 3:10 AM [employer] PHOSPHORUS LEVEL Routine 01/28/2024 3:10 AM [employer] MAGNESIUM LEVEL Routine 01/28/2024 3:10 AM [employer] BASIC METABOLIC PANEL, CALCIUM TOTAL Routine 01/28/2024 3:10 AM [employer] COMPLETE BLOOD COUNT W/ DIFFERENTIAL Routine 01/28/2024 3:10 AM [employer] DIFFERENTIAL Routine 01/27/2024 3:49 AM [employer] .CBC Routine 01/27/2024 3:49 AM [employer] PHOSPHORUS LEVEL Routine 01/27/2024 3:49 AM [employer] MAGNESIUM LEVEL Routine 01/27/2024 3:49 AM [employer] BASIC METABOLIC PANEL, CALCIUM TOTAL Routine 01/27/2024 3:49 AM [employer] COMPLETE BLOOD COUNT W/ DIFFERENTIAL Routine 01/27/2024 3:49 AM [employer] TRANSFUSE RED BLOOD CELLS Routine 01/26/2024 2:35 PM [employer] PREPARE RBC Routine 01/26/2024 7:47 AM [employer] DIFFERENTIAL Routine 01/26/2024 4:17 AM [employer] .CBC Routine 01/26/2024 4:17 AM [employer] PHOSPHORUS LEVEL Routine 01/26/2024 4:17 AM [employer] MAGNESIUM LEVEL Routine 01/26/2024 4:17 AM [employer] BASIC METABOLIC PANEL, CALCIUM TOTAL Routine 01/26/2024 4:17 AM [employer] COMPLETE BLOOD COUNT W/ DIFFERENTIAL Routine 01/26/2024 4:17 AM [employer] EKG, 12-LEAD (PORTABLE) Routine 01/26/2024 HEMOGLOBIN A1C Routine 01/25/2024 10:07 AM [employer] VITAMIN D 25 HYDROXY LEVEL Routine 01/25/2024 10:07 AM [employer] US RENAL Routine 01/25/2024 9:51 AM [employer] XR PELVIS 1 OR 2 VW STAT 01/25/2024 7 :52 AM [employer] XR FEMUR 2 VW RIGHT STAT 01/25/2024 7 :51 AM [employer] POC GLUCOSE SCREEN Routine 01/25/2024 5: 21 AM [employer] .CBC Routine 01/25/2024 4:15 AM [employer] PHOSPHORUS LEVEL Routine 01/25/2024 4:15 AM [employer] MAGNESIUM LEVEL Routine 01/25/2024 4:15 AM [employer] BASIC METABOLIC PANEL, CALCIUM TOTAL Routine 01/25/2024 4:15 AM [employer] COMPLETE BLOOD COUNT W/ DIFFERENTIAL Routine 01/25/2024 4:15 AM [employer] POC GLUCOSE SCREEN Routine 01/25/2024 4: 09 AM [employer] POC GLUCOSE SCREEN Routine 01/25/2024 2: 58 AM [employer] POC GLUCOSE SCREEN Routine 01/25/2024 1: 47 AM [employer] XR CHEST 1 VW PORTABLE Routine 1:25 AM [employer] POC GLUCOSE SCREEN Routine 01/25/2024 12:41 AM [employer] US LEG VENOUS DOPPLER BILATERAL Routine 01/24/2024 10:09 PM [employer] XR HIP 1 VW RIGHT STAT 01/24/2024 9:1 9 PM [employer] APTT Routine 01/24/2024 8:53 PM [employer] PROTHROMBIN TIME Routine 01/24/2024 8:53 PM [employer] .CBC Routine 01/24/2024 8:01 PM [employer] SEDIMENTATION RATE NON-AUTOMATED Routine 01/24/2024 8:01 PM [employer] C REACTIVE PROTEIN Routine 01/24/2024 8: 01 PM [employer] PHOSPHORUS LEVEL Routine 01/24/2024 8:01 PM [employer] MAGNESIUM LEVEL Routine 01/24/2024 8:01 PM [employer] COMPREHENSIVE METABOLIC PANEL Routine 01/24/2024 8:01 PM [employer] TYPE AND SCREEN STAT 01/24/2024 8:01 PM [employer] COMPLETE BLOOD COUNT W/ DIFFERENTIAL Routine 01/24/2024 8:01 PM [employer] DIFFERENTIAL Routine 01/19/2024 7:43 AM [employer] Cholangiocarcinom a of biliary tract, NOS .CBC Routine 01/19/2024 7:43 AM [employer] Cholangiocarcinom a of biliary tract, NOS CARBOHYDRATE ANTIGEN 19-9 Routine 01/19/2024 7:43 AM [employer] Cholangiocarcinom a of biliary tract, NOS PHOSPHORUS LEVEL Routine 01/19/2024 7:43 AM [employer] Cholangiocarcinom a of biliary tract, NOS COMPLETE BLOOD COUNT W/ DIFFERENTIAL Routine 01/19/2024 7:43 AM [employer] Cholangiocarcinom a of biliary tract, NOS COMPREHENSIVE METABOLIC PANEL Routine 01/19/2024 7:43 AM [employer] Cholangiocarcinom a of biliary tract, NOS URINALYSIS MICROSCOPIC EXAM Routine 01/05/2024 8:21 AM [employer] Cholangiocarcinom a of biliary tract, NOS .CBC Routine 01/05/2024 8:21 AM [employer] Cholangiocarcinom a of biliary tract, NOS PHOSPHORUS LEVEL Routine 01/05/2024 8:21 AM [employer] Cholangiocarcinom a of biliary tract, NOS FIBRO TEST ACTI TEST Routine 01/05/2024 8:21 AM [employer] Chronic viral hepatitis C HEPATITIS A ANTIBODY IGG Routine 01/05/2024 8:21 AM [employer] Screening examination for other specified viral diseases HEPATITIS E IGG AB Routine 01/05/2024 8: 21 AM [employer] Screening examination for other specified viral diseases HIV 1/2 ANTIGEN/ANTIBODY, FOURTH GEN W/RFL Routine 01/05/2024 8:21 AM [employer] Screening examination for other specified viral diseases URINALYSIS WITH MICROSCOPIC IF INDICATED Routine 01/05/2024 8:21 AM [employer] Cholangiocarcinom a of biliary tract, NOS COMPLETE BLOOD COUNT W/ DIFFERENTIAL Routine 01/05/2024 8:21 AM [employer] Cholangiocarcinom a of biliary tract, NOS COMPREHENSIVE METABOLIC PANEL Routine 01/05/2024 8:21 AM [employer] Cholangiocarcinom a of biliary tract, NOS US RENAL Routine 01/04/2024 10:45 AM [employer] Cholangiocarcinom a of biliary tract, NOS IR CHEST XRAY 1 VIEW 30 Routine 01/02/20 24 12:05 PM [employer] IR FL PORT PLACEMENT 75 Routine 01/02/20 11:35 AM [employer] Cholangiocarcinom a of biliary tract, NOS .CBC Routine 12/29/2023 12:56 PM [employer] PROTHROMBIN TIME Routine 12/29/2023 12:56 PM [employer] TYPE AND SCREEN Routine 12/29/2023 12:56 PM [employer] COMPREHENSIVE METABOLIC PANEL Routine 12/29/2023 12:56 PM [employer] COMPLETE BLOOD COUNT W/ DIFFERENTIAL Routine 12/29/2023 12:56 [address] [employer] [address] BONE METS SIMULATION WITHOUT CONTRAST Routine 12/27/2023 9:02 AM [employer] Metastatic malignant neoplasm to bone 3D DENTAL IMAGING (ICAT) Routine 12/27/2023 8:45 AM [employer] Encounter for observation for other suspected disease ruled out .CBC Routine 12/22/2023 6:31 AM [employer] Cholangiocarcinom a of biliary tract, NOS HEPATITIS C VIRUS RNA DETECT/QUANT, SERUM Routine 12/22/2023 6:31 AM [employer] Cholangiocarcinom a of biliary tract, NOS CARBOHYDRATE ANTIGEN 19-9 Routine 12/22/2023 6:31 AM [employer] Cholangiocarcinom a of biliary tract, NOS FREE THYROXINE Routine 12/22/2023 6:31 AM [employer] Cholangiocarcinom a of biliary tract, NOS THYROID STIMULATING HORMONE Routine 12/22/2023 6:31 AM [employer] Cholangiocarcinom a of biliary tract, NOS COMPLETE BLOOD COUNT W/ DIFFERENTIAL Routine 12/22/2023 6:31 AM [employer] Cholangiocarcinom a of biliary tract, NOS COMPREHENSIVE METABOLIC PANEL Routine 12/22/2023 6:31 AM [employer] Cholangiocarcinom a of biliary tract, NOS XR FEMUR 2 VW RIGHT Routine 12/20/2023 3 :13 PM [employer] Metastatic malignant neoplasm to bone POC GLUCOSE SCREEN Routine 12/15/2023 10:33 AM [employer] IR CT GUIDED BIOPSY RETROPERITONEAL 60 Routine 12/15/2023 10:02 AM [employer] Adenocarcinoma, NOS of unknown primary site PATHOLOGY BIOPSY INTERPRETATION Routine 12/15/2023 9:36 AM [employer] Adenocarcinoma, NOS of unknown primary site POC GLUCOSE SCREEN Routine 12/15/2023 8: 16 AM [employer] TYPE AND SCREEN Routine 12/15/2023 7:36 AM [employer] PROTHROMBIN TIME Routine 12/15/2023 7:36 AM [employer] [address] CHEST ABDOMEN PELVIS W WO CONTRAST LIVER Routine 12/06/2023 5:32 PM [employer] Adenocarcinoma, NOS of unknown primary site HP LB MDA LUZ LIQUID BIOPSY NORMAL Routine 12/06/2023 11:49 AM [employer] Adenocarcinoma, NOS of unknown primary site .CBC Routine 12/06/2023 11:49 AM [employer] Adenocarcinoma, NOS of unknown primary site COMPREHENSIVE METABOLIC PANEL Routine 12/06/2023 11:49 AM [employer] Adenocarcinoma, NOS of unknown primary site COMPLETE BLOOD COUNT W/ DIFFERENTIAL Routine 12/06/2023 11:49 AM [employer] Adenocarcinoma, NOS of unknown primary site ALPHA FETOPROTEIN TUMOR MARKER Routine 12/06/2023 11:49 AM [employer] Adenocarcinoma, NOS of unknown primary site CARCINOEMBRYONIC ANTIGEN Routine 12/06/2023 11:49 AM [employer] Adenocarcinoma, NOS of unknown primary site CARBOHYDRATE ANTIGEN 19-9 Routine 12/06/2023 11:49 AM [employer] Adenocarcinoma, NOS of unknown primary site CANCER ANTIGEN 125 Routine 12/06/2023 11:49 AM [employer] Adenocarcinoma, NOS of unknown primary site HP LB MDA LUZ LIQUID BIOPSY INTERPRETATION AND REPORT Routine 12/06/2023 11:49 AM [employer] Adenocarcinoma, NOS of unknown primary site PATHOLOGY BIOPSY INTERPRETATION Routine 11/25/2023 2:13 PM [employer] Adenocarcinoma, NOS of unknown primary site POC GLUCOSE SCREEN Routine 11/25/2023 1: 47 PM [employer] DIAGNOSTIC FLEXIBLE COLONOSCOPY PROXIMAL TO SPLENIC FLEXURE 11/25/2023 1:44 PM [employer] Adenocarcinoma, NOS of unknown primary site DIAGNOSTIC UPPER GASTROINTESTINAL ENDOSCOPY 11/25/2023 1:44 PM [employer] Adenocarcinoma, NOS of unknown primary site IR US GUIDED BIOPSY LIVER 60 Routine 11/14/2023 1:33 PM [employer] Liver mass PATHOLOGY BIOPSY INTERPRETATION Routine 11/14/2023 1:18 PM [employer] Liver mass MDA CP PLATELET COUNT Routine 11/11/2023 12:02 PM [employer] TYPE AND SCREEN Routine 11/11/2023 12:02 PM [employer] PROTHROMBIN TIME Routine 11/11/2023 12:02 PM [employer] PLATELET COUNT Routine 11/11/2023 12:02 PM [employer] CONFIRM ABORH TYPE Routine 11/11/2023 12:01 PM [employer] [employer] CT CHEST W CONTRAST Routine 10/27/2023 11:28 AM [employer] Pulmonary nodules .CBC Routine 10/26/2023 12:41 [address] [employer] [address] of abdomen abnormal HEPATITIS B SURFACE ANTIBODY Routine 10/26/2023 12:41 PM [employer] [employer] CT of abdomen abnormal HEPATITIS B SURFACE ANTIGEN Routine 10/26/2023 12:41 PM [employer] [employer] CT of abdomen abnormal HEPATITIS B CORE ANTIBODY Routine 10/26/2023 12:41 PM [facility] [employer] CT of abdomen abnormal CARCINOEMBRYONIC ANTIGEN Routine 10/26/2023 12:41 PM [employer] [employer] CT of abdomen abnormal CARBOHYDRATE ANTIGEN 19-9 Routine 10/26/2023 12:41 PM [employer] [employer] CT of abdomen abnormal ALPHA FETOPROTEIN TUMOR MARKER Routine 10/26/2023 12:41 PM [employer] [employer] CT of abdomen abnormal HEPATIC FUNCTION PANEL Routine 12:41 PM [employer] [employer] CT of abdomen abnormal HEPATITIS C VIRUS ANTIBODY Routine 10/26/2023 12:41 PM [employer] [employer] CT of abdomen abnormal APTT Routine 10/26/2023 12:41 PM [employer] [employer] CT of abdomen abnormal COMPLETE BLOOD COUNT W/ DIFFERENTIAL Routine 10/26/2023 12:41 PM [employer] [employer] CT of abdomen abnormal PROTHROMBIN TIME Routine 10/26/2023 12:41 PM [employer] [employer] CT of abdomen abnormal LACTATE DEHYDROGENASE Routine 10/26/2023 12:41 [address] [facility] [employer] CT of abdomen abnormal MAGNESIUM LEVEL Routine 10/26/2023 12:41 PM [facility] [employer] CT of abdomen abnormal PHOSPHORUS LEVEL Routine 10/26/2023 12:41 PM [facility] [employer] CT of abdomen abnormal CALCIUM LEVEL Routine 10/26/2023 12:41 PM [facility] [employer] CT of abdomen abnormal GLUCOSE, RANDOM Routine 10/26/2023 12:41 PM [facility] [employer] CT of abdomen abnormal CREATININE Routine 10/26/2023 12:41 PM [facility] [employer] CT of abdomen abnormal BLOOD UREA NITROGEN Routine 10/26/2023 12:41 [address] [employer] [address] of abdomen abnormal ELECTROLYTE PANEL Routine 10/26/2023 12:41 PM [facility] [employer] CT of abdomen abnormal EKG, 12-LEAD (SCHEDULED) Routine 10/26/2023 CT of abdomen abnormal MRI ABDOMEN W WO CONTRAST Routine 10/25/2023 4:49 PM [employer] Liver mass OSI CT ABDOMEN AND PELVIS Routine 10/05/2023 1:23 PM [employer] Cancer OSI NUCLEAR DIAGNOSTIC EXAM Routine 09/02/2023 6:27 PM CDT Cancer after 02/23/2023 Results * PROCEDURE FOR CODING (02/22/2024 4:56 PM CDT) Narrative Avril Leon RN - 02/22/2024 4:56 PM CDT Avril Leon RN 02/22/2024 4:59 PM PICC/Non-Tunneled CVAD Removal Date/Time: 02/22/2024 4:56 PM Performed by: Avril Leon RN Authorized by: Isidro Wilks MD Pre Procedure: Proceduralist Type: RN Proceduralist: Avril Leon RN Procedure [facility] Reason for Removal: Treatment Complete Patient examined pre-procedure and assessment (including allergies, labs, imaging, history and physical exam) performed. Pre-procedure the patient was alert. Procedure: Patient held breath while catheter removed slowly. Upon final inspection catheter was Intact. An occlusive dressing was applied. Dressing care and instructions provided to the patient. An occlusive dressing was applied, with dressing care and instructions provided to the patient. Estimated blood loss is none. Post Procedure: Post Removal Patient Status: Procedure tolerated well with no immediate complications Specimen: N/A Mode of Disposition: Remained in inpatient bed Isidro Wilks MD IV THERAPY ORDERABLE S * MDA CP PRMYEF (02/22/2024 6:04 AM CDT) Only the most recent of25 resultswithin the time period is included. Blood Venous blood specimen / Unknown CVC Line / Unknown 02/22/2024 6:04 AM CDT 02/22/2024 6:13 AM CDT Red Joseph MD LAB BLOOD ORDERABLE S [facility] Unless otherwise noted, all lab tests performed by: Division of Pathology and Laboratory Medicine [address] [place] [id number] * MDA CP BLSTFL (02/22/2024 6:04 AM CDT) Only the most recent of22 resultswithin the time period is included. Blood Venous blood specimen / Unknown CVC Line / Unknown 02/22/2024 6:04 AM CDT 02/22/2024 6:13 AM CDT Red Joseph MD LAB BLOOD ORDERABLE S Performing Organization Address [facility] Co de Phone Number [facility] Unless otherwise noted, all lab tests performed by: Division of Pathology and Laboratory Medicine [address] [place] [id number] * (ABNORMAL) .CBC (02/22/2024 6:04 AM CDT) Only the most recent of39 resultswithin the time period is included. White Blood Cell 10.4 4.1 - 10.5 K/uL 02/22/2024 11:17 AM CDT [facility] Red Blood Cell 3.34(L) 3.99 - 5.46 M/uL 02/22/2024 11:17 AM CDT [facility] Hemoglobin 9.7(L) 12.2 - 15.3 g/dL 02/22/2024 11:17 AM CDT [facility] Hematocrit 30.2(L) 36.4 - 46.8 % 02/22/2024 11:17 AM CDT [facility] Mean Cell Volume 90 82 - 99 fL 02/22/2024 11:17 AM CDT [facility] Mean Cell Hemoglobin 29.0 26.6 - 33.2 pg 02/22/2024 11:17 AM CDT [facility] Mean Cell Hemoglobin Concentration 32.1 31.1 - 35.2 g/dL 02/22/2024 11:17 AM CDT [facility] RDW-SD 55.7(H) 37.5 - 49.7 fL 02/22/2024 11:17 AM CDT [facility] Red Cell Diameter Width 19.0(H) 11.6 - 15.5 % 02/22/2024 11:17 AM CDT [facility] Platelet 102(L) 160 - 397 K/uL 02/22/2024 11:17 AM CDT [facility] Mean Platelet Volume 10.8 9.1 - 12.6 fL 02/22/2024 11:17 AM CDT [facility] INRBC 0.0 0.0 - 0.1 /100 WBC 02/22/2024 11:17 AM CDT [facility] Comment: The INRBC (instrument NRBC) value reflects the enumeration of nucleated red blood cells contained in a 200uL sample of whole blood analyzed by the instrument. This value may differ from the NRBC value reported in a manual differential, which is based on a 100 cell differential. Blood Venous blood specimen / Unknown CVC Line / Unknown 02/22/2024 6:04 AM CDT 02/22/2024 6:13 AM CDT Red Joseph MD LAB BLOOD ORDERABLE S [facility] Unless otherwise noted, all lab tests performed by: Division of Pathology and Laboratory Medicine [address] [place] [id number] * (ABNORMAL) Comprehensive Metabolic Panel (02/22/2024 6:04 AM CDT) Only the most recent of14 resultswithin the time period is included. Pathologist [facility] Bilirubin Total 1.8(H) 0.0 - 1.2 mg/dL 02/22/2024 6:45 AM CDT [facility] Comment:Indocyanine Green (I CG) may cause falsely elevated bilirubin results. Total and direct bilirubin must not be measured from samples containing indocyanine green. False elevation of total bilirubin can be seen in patients with IgG concentrations above 28 g/L. Bilirubin Direct 0.9(H) 0.0 - 0.3 mg/dL 02/22/2024 6:45 AM CDT [facility] Comment:Indocyanine Green (I CG) may cause falsely elevated bilirubin results. Total and direct bilirubin must not be measured from samples containing indocyanine green. Bilirubin Indirect 0.9 0.0 - 0.9 mg/dL 02/22/2024 6:45 AM CDT [facility] eGFR 70 >=60 mL/min/1. 73 sq. m 02/22/2024 6:45 AM CDT [facility] Comment: The eGFRcr is calculated with the 2020 CKD-EPI creatinine equation using creatinine, patient's age, and sex for adults 18 years of age and older. Other factors, especially muscle mass, may affect accuracy and need to be considered. According to the Kidney Disease: Improving Global Outcomes (KDIGO) CKD Work Group 2012 Clinical Practice Guideline, chronic kidney disease (CKD) is defined as the abnormalities of kidney structure or function, present for more than 3 months, with implications for health. CKD should be classified by cause, GFR category, and albuminuria category. KDIGO guidelines provide the following GFR categories. Stage / Description / GFR mL/min/1.73 m2: G1* / Normal or high / >= 90 G2* / Mildly decreased / 60-89 G3a / Mildly to moderately decreased / 45-59 G3b / Moderately to severely decreased / 30-44 G4 / Severely decreased / 15-29 G5 / Kidney failure / <15 *In the absence of evidence of kidney damage, neither G1 nor G2 fulfill criteria for CKD. Tot Protein 5.1(L) 6.4 - 8.3 gm/dL 02/22/2024 6:45 AM CDT [facility] Calcium Level Total 7.9(L) 8.2 - 10.2 mg/dL 02/22/2024 6:45 AM CDT [facility] Alkaline Phosphatase 346(H) 35 - 104 U/L 02/22/2024 6:45 AM T [facility] Albumin Level 3.0(L) 3.5 - 5.2 gm/dL 02/22/2024 6:45 AM CDT [facility] AST 24 <=32 U/L 02/22/2024 6:45 AM CDT [facility] ALT 19 <=33 U/L 02/22/2024 6:45 AM CDT [facility] Sodium Level 145 136 - 145 mmol/L 02/22/2024 6:45 AM CDT [facility] Potassium Level 3.9 3.4 - 4.5 mmol/L 02/22/2024 6:45 AM CDT [facility] Chloride 109(H) 98 - 107 mmol/L 02/22/2024 6:45 AM CDT [facility] CO2 26 22 - 29 mmol/L 02/22/2024 6:45 AM CDT [facility] Anion Gap 10 4 - 14 mmol/L 02/22/2024 6:45 AM CDT [facility] Creatinine 0.91 0.51 - 0.95 mg/dL 02/22/2024 6:45 AM CDT [facility] BUN 40(H) 6 - 23 mg/dL 02/22/2024 6:45 AM CDT [facility] Glucose Level 113(H) 70 - 99 mg/dL 02/22/2024 6:45 AM CDT [facility] Comment: Effective 06/23/16, the glucose reference intervals have been updated based on [place] Diabetes [employer] guidelines (Standards of Medical Care in Diabetes 2016. Diabetes Care 2016; 39: S13-S22). Fasting blood glucose: Normal: 70-99 mg/dL Impaired fasting glucose (increased risk for diabetes or pre-diabetes): 100-125 mg/dL Diabetes mellitus: >/=126 mg/dL Random blood glucose: Normal: 70-199 mg/dL Note: Random glucose >100 mg/dL is associated with increased risk for diabetes. Blood Venous blood specimen / Unknown CVC Line / Unknown 02/22/2024 6:04 AM CDT 02/22/2024 6:13 AM CDT Red Joseph MD LAB BLOOD ORDERABLE S [facility] Unless otherwise noted, all lab tests performed by: Division of Pathology and Laboratory Medicine [address] [place] [id number] * aPTT (02/22/2024 6:04 AM CDT) Only the most recent of12 resultswithin the time period is included. Activated PTT 32.1 24.1 - 35.5 second(s) 02/22/2024 6:46 AM CDT [facility] Blood Venous blood specimen / Unknown CVC Line / Unknown 02/22/2024 6:04 AM CDT 02/22/2024 6:13 AM CDT Carley Murray MD LAB BLOOD ORDERABLES Performing Organization Address [facility] de Phone Number [facility] Unless otherwise noted, all lab tests performed by: Division of Pathology and Laboratory Medicine [address] [place] [id number] * Lactic Acid, Venous (02/22/2024 6:04 AM CDT) Only the most recent of15 resultswithin the time period is included. [facility] Venous Lactate 1.0 0.5 - 1.6 mmol/L 02/22/2024 6:16 AM CDT [facility] Oxygen FLOW Rate/ FiO2 02/22/2024 6:16 AM CDT [facility] O2 Therapy 02/22/2024 6:16 AM CDT [facility] Blood Venous blood specimen / Unknown CVC Line / Unknown 02/22/2024 6:04 AM CDT 02/22/2024 6:13 AM CDT Yonas Humphries MD LAB BLOOD ORDERABLE S Performing Organization Address [facility] de Phone Number [facility] Unless otherwise noted, all lab tests performed by: Division of Pathology and Laboratory Medicine [address] [place] [id number] * (ABNORMAL) Differential (02/22/2024 6:04 AM CDT) Only the most recent of31 resultswithin the time period is included. Pathologist [facility] Total Cells 100 02/22/2024 11:17 AM CDT [facility] Manual Neutrophil % 90.0(H) 43.2 - 72.7 % 02/22/2024 11:17 AM CDT [facility] Comment:The Neutrophil count includes Bands. Manual Lymphocyte % 3.0(L) 16.8 - 46.2 % 02/22/2024 11:17 AM CDT [facility] Manual Monocyte % 4.0(L) 5.1 - 12.5 % 02/22/2024 11:17 AM CDT [facility] Manual Eosinophil % 2.0 0.4 - 6.3 % 02/22/2024 11:17 AM CDT [facility] Metamyelocyte % 1.0(H) <=0.0 % 11:17 AM CDT [facility] Comment:The Metamyelocyte co unt includes Myelocytes. Manual Neutrophil Abs 9.36(H) 1.95 - 7.25 K/uL 02/22/2024 11:17 AM CDT [facility] Manual Lymphocyte Abs 0.31(L) 1.01 - 3.24 K/uL 02/22/2024 11:17 AM CDT [facility] Manual Monocyte Abs 0.42 0.24 - 0.85 K/uL 02/22/2024 11:17 AM CDT [facility] Manual Eosinophil Abs 0.21 0.02 - 0.50 K/uL 02/22/2024 11:17 AM CDT [facility] RBC Morphology PRESENT 02/22/2024 11:17 AM CDT [facility] PLT Morph Normal Normal 02/22/2024 11:17 AM CDT [facility] Anisocytosis Present(A) (none) 02/22/2024 11:17 AM CDT [facility] Polychromasia Present(A) (none) 02/22/2024 11:17 AM CDT [facility] Ovalocyte Present(A) (none) 02/22/2024 11:17 AM CDT [facility] Slide Comment SEE NOTE 02/22/2024 11:17 AM CDT [facility] Comment:Differential perform ed on Albumin prep. Blood Venous blood specimen / Unknown CVC Line / Unknown 02/22/2024 6:04 AM CDT 02/22/2024 6:13 AM CDT Red Joseph MD LAB BLOOD ORDERABLE S [facility] Unless otherwise noted, all lab tests performed by: Division of Pathology and Laboratory Medicine [address] [place] [id number] * (ABNORMAL) Prothrombin Time with INR (02/22/2024 6:04 AM CDT) Only the most recent of15 resultswithin the time period is included. Prothrombin Time 15.3(H) 11.9 - 14.5 second(s) 02/22/2024 6:46 AM CDT [facility] International Normalization Ratio 1.23(H) 0.87 - 1.12 02/22/2024 6:46 AM CDT [facility] Blood Venous blood specimen / Unknown CVC Line / Unknown 02/22/2024 6:04 AM CDT 02/22/2024 6:13 AM CDT Carley Murray MD LAB BLOOD ORDERABLES Performing Organization Address [facility]/ZIP Co de Phone Number [facility] Unless otherwise noted, all lab tests performed by: Division of Pathology and Laboratory Medicine [address] [place] [id number] * (ABNORMAL) Phosphorus Level (02/22/2024 6:04 AM CDT) Only the most recent of50 resultswithin the time period is included. Phosphorus Level 2.2(L) 2.5 - 4.5 mg/dL 02/22/2024 6:44 AM CDT [facility] Blood Venous blood specimen / Unknown CVC Line / Unknown 02/22/2024 6:04 AM CDT 02/22/2024 6:13 AM CDT Yonas Humphries MD LAB BLOOD ORDERABLE S [facility] Unless otherwise noted, all lab tests performed by: Division of Pathology and Laboratory Medicine [address] [place] [phone] * (ABNORMAL) Magnesium Level (02/22/2024 6:04 AM CDT) Only the most recent of48 resultswithin the time period is included. Magnesium Level 1.4(L) 1.6 - 2.6 mg/dL 02/22/2024 6:44 AM CDT [facility] Blood Venous blood specimen / Unknown CVC Line / Unknown 02/22/2024 6:04 AM CDT 02/22/2024 6:13 AM CDT Yonas Humphries MD LAB BLOOD ORDERABLE S [facility] Unless otherwise noted, all lab tests performed by: Division of Pathology and Laboratory Medicine [address] [place] [id number] * Transfuse RBC:Transfusion Date: 02/20/2024 (02/20/2024 3:08 PM CDT) Only the most recent of8 resultswithin the time period is included. Red Joseph MD BLOOD TRANSFUSION O RDERABLES * Prepare RBC:G2153, 1 Units (02/20/2024 9:42 AM CDT) Only the most recent of6 resultswithin the time period is included. Product Code [id number] [facility] Product Code Text Red Blood Cells [facility] QTY Ordered 1 [facility] Dispense Status Transfused [facility] Unit Expiration [id number] [facility] Unit Number [id number] [facility] Unit Blood Type A+ [facility] Bag Volume 288 [facility] XM Interpretation Compatible U T [facility] Unit Blood Type Barcode 6200 [facility] RBC Product Status 1 RBC approved [facility] Comment:Order Form 03 when r param for product issue. PRBC Product Ready For Policy Manager B2 Blood Bank [facility] Blood Red Joseph MD BLOOD BANK PRODUCT ORDERABLES [facility] Transfusion [facility] [address] [place] [address] * Type and screen (02/20/2024 4:48 AM CDT) Only the most recent of11 resultswithin the time period is included. ABORh A POS 02/19/2024 11:54 PM CDT [facility] ABSC Negative 02/19/2024 11:54 PM CDT [facility] Clot Expiration 02/23/2024 23:59 02/19/2024 11:54 PM CDT [facility] Historical Record Check Complete 02/19/2024 11:54 PM CDT [facility] Blood Venous blood specimen / Unknown Port / Unknown 02/20/2024 4:48 AM CDT 02/20/2024 5:07 AM CDT Yonas Humphries MD BLOOD BANK TEST ORD ERABLES [facility] [address] [place] [address] * (ABNORMAL) Hemoglobin (02/16/2024 5:02 PM CDT) Only the most recent of6 resultswithin the time period is included. Pathologist [facility] Hemoglobin 8.3(L) 12.2 - 15.3 g/dL 02/16/2024 5:21 PM CDT [facility] Blood Venous blood specimen / Unknown Port / Unknown 02/16/2024 5:02 PM CDT 02/16/2024 5:10 PM CDT Red Joseph MD LAB BLOOD ORDERABLE S [facility] Unless otherwise noted, all lab tests performed by: Division of Pathology and Laboratory Medicine [address] [place] [phone] * Flexible nasopharyngeal laryngoscopy (02/15/2024 1:30 PM CDT) Narrative Mayuri Alex CCC-ARMATURE VARNISHER - 02/15/2024 1:30 PM CDT Mayuri Alex CCC-SLP 02/15/2024 9:17 PM Flexible nasopharyngeal laryngoscopy Date/Time: 02/15/2024 1:30 PM Provider Information: Performed by: Mayuri Alex CCC-SLP Authorized by: Red Joseph MD Obiee Consultant present?: yes Obiee Consultant: Awa Garcia CCC-SLP Patient Diagnosis: Pre-operative diagnosis: Dysphagia Post-operative diagnosis: unchanged Indications: Indications: direct visualization of the upper aerodigestive tract Pre-Procedure Note: translator/interpreter: no Pre-procedure patient condition: alert Procedure Details: Instrument used: flexible fiberoptic laryngoscope Videostroboscopy performed: no Patient preparation: patient positioned for procedure The scope was introduced into the: anterior nares Specimen(s) Removed: Specimen(s) removed: no Estimated Blood Loss: Estimated blood loss: none Post-Procedure Complications: Immediate post-procedure complications: the procedure was terminated without complications Post-Procedure Patient Condition: Post-procedure patient condition: patient tolerated the procedure well with no immediate complications Post-Procedure Disposition: Disposition: remain in current area Red Joseph MD ENT ORDERABLES * (ABNORMAL) POC Glucose Screen - Fingerstick (02/15/2024 12:11 PM CDT) Only the most recent of57 resultswithin the time period is included. Glucose Screen 155(H) 70 - 99 mg/dL 02/15/2024 12:13 PM CDT [facility] POC Sample Type Capillary 02/15/2024 12:13 PM CDT [facility] Blood 02/15/2024 12:1 1 PM CDT 02/15/2024 12:13 PM CDT Narrative [facility] - 02/15/2024 12:13 PM CDT Capillary blood samples, e.g. obtained by fingerstick, may have inaccurate results in patients with decreased peripheral blood flow. Method description: All results are measured using Electrochemistry test methodology. The glucose in the sample mixes with the reagents on the test strip. The reaction produces an electric current. The amount of current produced is proportional to the glucose concentration in the blood. All POC Glucose screen test results, including critical values, must be interpreted and evaluated in the context of the patients' clinical findings. It is recommended to confirm any questionable test results by core lab methodology. Red Joseph MD POCT ORDERABLES - D ALFONSOICE [facility] Unless otherwise noted, all lab tests performed by: Division of Pathology and Laboratory Medicine [address] [place] [address] * Fibrinogen (02/14/2024 6:48 PM CDT) Only the most recent of2 resultswithin the time period is included. [facility] Fibrinogen 364 214 - 503 mg/dL 02/14/2024 7:22 PM CDT [facility] Blood Peripheral blood specimen / Unknown Port / Unknown 02/14/2024 6:48 PM CDT 02/14/2024 6:56 PM CDT Red Joseph MD LAB BLOOD ORDERABLE S Performing Organization Address City/[facility]/ZIP Co de Phone Number [facility] Unless otherwise noted, all lab tests performed by: Division of Pathology and Laboratory Medicine [address] [place] [phone] * ARUP Misc Test (02/14/2024 3:13 PM CDT) [facility] Misc Test 1-ARUP SEE NOTE 02/18/20 24 10:45 AM CDT [facility] ([facility]) Comment: Test name Result Flag Units RefIntvl Fibrin Degradation Products, Plasma < 5 ug/mL < 5 Performed By: [facility] [address] [place] [id number] New Business Clerk: Russell Peterson MD, PhD CLIA Number: [id number] Other (Other) 02/14/2024 3: 13 PM CDT 02/14/2024 3:40 PM CDT Red Joseph MD LAB BLOOD ORDERABLE S [facility] ([facility] * Peripheral Smr For Doc Review (02/14/2024 3:13 PM CDT) Only the most recent of2 resultswithin the time period is included. Blood Peripheral blood specimen / Unknown Port / Unknown 02/14/2024 3:13 PM CDT 02/14/2024 3:22 PM CDT Red Joseph MD LAB BLOOD ORDERABLE S Performing Organization Address [facility]/ZIP Co de Phone Number [facility] Unless otherwise noted, all lab tests performed by: Division of Pathology and Laboratory Medicine [address] [place] [address] * Heparin Induced Ab (02/14/2024 3:13 PM CDT) Scan Result See Scanned Result 02/15/2024 5:44 PM CDT [facility] Blood Peripheral blood specimen / Unknown Port / Unknown 02/14/2024 3:13 PM CDT 02/14/2024 3:22 PM CDT Narrative [facility] - 02/15/2024 5:44 PM CDT Comments - Probability of HIT based on scoring system: 6-8 = High probability; 4-5 = Intermediate probability; 0-3 = Low probability Performing Lab: [facility], [address] [place] [address]. Red Joseph MD LAB BLOOD ORDERABLE S Performing Organization Address [facility] [place] [address], * Transfuse platelets:Transfusion Date: 02/14/2024 (02/14/2024 7:01 AM CDT) Only the most recent of2 resultswithin the time period is included. Zohra Granados APRN BLOOD TRANSFUSION OR DERABLES * (ABNORMAL) Basic Metabolic Panel- Calcium Ionized (02/14/2024 4:00 AM CDT) Only the most recent of18 resultswithin the time period is included. eGFR 57(L) >=60 mL/min/1. 73 sq. m 02/14/2024 4:45 AM CDT [facility] Comment: The eGFRcr is calculated with the 2020 CKD-EPI creatinine equation using creatinine, patient's age, and sex for adults 18 years of age and older. Other factors, especially muscle mass, may affect accuracy and need to be considered. According to the Kidney Disease: Improving Global Outcomes (KDIGO) CKD Work Group 2012 Clinical Practice Guideline, chronic kidney disease (CKD) is defined as the abnormalities of kidney structure or function, present for more than 3 months, with implications for health. CKD should be classified by cause, GFR category, and albuminuria category. KDIGO guidelines provide the following GFR categories. Stage / Description / GFR mL/min/1.73 m2: G1* / Normal or high / >= 90 G2* / Mildly decreased / 60-89 G3a / Mildly to moderately decreased / 45-59 G3b / Moderately to severely decreased / 30-44 G4 / Severely decreased / 15-29 G5 / Kidney failure / <15 *In the absence of evidence of kidney damage, neither G1 nor G2 fulfill criteria for CKD. Sodium Level 140 136 - 145 mmol/L 02/14/2024 4:45 AM CDT [facility] Potassium Level 4.4 3.4 - 4.5 mmol/L 02/14/2024 4:45 AM CDT [facility] Chloride 105 98 - 107 mmol/L 02/14/2024 4:45 AM CDT [facility] CO2 21(L) 22 - 29 mmol/L 02/14/2024 4:45 AM CDT [facility] Anion Gap 14 4 - 14 mmol/L 02/14/2024 4:45 AM CDT [facility] Creatinine 1.08(H) 0.51 - 0.95 mg/dL 02/14/2024 4:45 AM CDT [facility] BUN 85(H) 6 - 23 mg/dL 02/14/2024 4:45 AM CDT [facility] Glucose Level 124(H) 70 - 99 mg/dL 02/14/2024 4:45 AM CDT [facility] Comment: Effective 06/23/16, the glucose reference intervals have been updated based on [place] Diabetes [employer] guidelines (Standards of Medical Care in Diabetes 2016. Diabetes Care 2016; 39: S13-S22). Fasting blood glucose: Normal: 70-99 mg/dL Impaired fasting glucose (increased risk for diabetes or pre-diabetes): 100-125 mg/dL Diabetes mellitus: >/=126 mg/dL Random blood glucose: Normal: 70-199 mg/dL Note: Random glucose >100 mg/dL is associated with increased risk for diabetes. Blood Venous blood specimen / Unknown Port / Unknown 02/14/2024 4:00 AM CDT 02/14/2024 4:10 AM CDT Yonas Humphries MD LAB BLOOD ORDERABLE S [facility] Unless otherwise noted, all lab tests performed by: Division of Pathology and Laboratory Medicine [address] [place] [id number] * (ABNORMAL) Calcium Ionized, Venous (02/14/2024 4:00 AM CDT) Only the most recent of19 resultswithin the time period is included. Venous Ionized Calcium 1.13(L) 1.15 - 1.29 mmol/L 02/14/2024 4:12 AM CDT [facility] Oxygen FLOW Rate/ FiO2 2 % 02/14/2024 4:12 AM CDT [facility] O2 Therapy Nasal cannula 02/14/2024 4:12 AM CDT [facility] Blood Venous blood specimen / Unknown Port / Unknown 02/14/2024 4:00 AM CDT 02/14/2024 4:09 AM CDT Yonas Humphries MD LAB BLOOD ORDERABLE S [facility] Unless otherwise noted, all lab tests performed by: Division of Pathology and Laboratory Medicine [address] [place] [phone] * CTA Pelvis with and without Contrast (02/14/2024 2:35 AM CDT) Anatomical Region Laterality Modality Vascular, Extremity Computed Pepe ography 02/14/2024 3:00 AM CDT Addenda Addendum by Shai Monzon MD on 02/15/2024 9:45 AM CDT Please Note: TECHNIQUE: CTA of the pelvis with and without intravenous contrast. 3D reconstructions were created on an independent workstation. Impressions 02/14/2024 10:09 AM CDT 1. Unchanged large hematoma in the right gluteus musculature with no active arterial extravasation. 2. Diffuse subcutaneous edema/anasarca and mild ascites are noted. ACTIONABLE ITEMS/RECOMMENDATIONS*: Significant Finding: Large hematoma in the right gluteus musculature and proximal thigh. I personally reviewed these image(s) along with the resident's/fellow's interpretations, certify that if a procedure was performed I was physically present, and agree with the final report. Narrative 02/14/2024 10:09 AM CDT Examination: CTA PELVIS W WO CONTRAST on 02/14/2024 2:35 AM. Clinical History: Cholangiocarcinoma of biliary tract, NOS Indication: Large Gluteus hematoma Comparison: CT AP, 02/13/2024.. Technique: CTA PELVIS W WO CONTRAST. FINDINGS: Gastrointestinal Tract: No obstruction. Cholelithiasis is incidentally detected. Pelvic Organs: Rahman catheter in the nondistended urinary bladder. Status post hysterectomy. No adnexal mass. Peritoneum/Retroperitoneum: There is moderate ascites, increased from prior. Lymph Nodes: No adenopathy in the pelvis. Musculoskeletal: Unchanged mixed density right gluteal hematoma, with hypodensity extending into the right piriformis to the proximal posterior thigh. Small perforating branch of the internal iliac vein courses adjacent to the hematoma. No active arterial extravasation. Diffuse subcutaneous edema/anasarca. Status post resection of the right femoral head. Heterogeneous lucency in the proximal right femur redemonstrated. Procedure Note Shai Monzon MD - 02/14/2024 Examination: CTA PELVIS W WO CONTRAST on 02/14/2024 2:35 AM. Clinical History: Cholangiocarcinoma of biliary tract, NOS Indication: Large Gluteus hematoma Comparison: CT AP, 02/13/2024.. Technique: CTA PELVIS W WO CONTRAST. FINDINGS: Gastrointestinal Tract: No obstruction. Cholelithiasis is incidentallydetected. Pelvic Organs: Rahman catheter in the nondistended urinary bladder. Statuspost hysterectomy. No adnexal mass. Peritoneum/Retroperitoneum: There is moderate ascites, increased fromprior. Lymph Nodes: No adenopathy in the pelvis. Musculoskeletal: Unchanged mixed density right gluteal hematoma, with hypodensity extendinginto the right piriformis to the proximal posterior thigh. Smallperforating branch of the internal iliac vein courses adjacent to thehematoma. No active arterial extravasation. Diffuse subcutaneous edema/anasarca. Status post resection of the right femoral head. Heterogeneous lucency inthe proximal right femur redemonstrated. IMPRESSION: 1. Unchanged large hematoma in the right gluteus musculature with noactive arterial extravasation. 2. Diffuse subcutaneous edema/anasarca and mild ascites are noted. ACTIONABLE ITEMS/RECOMMENDATIONS*: Significant Finding: Large hematoma inthe right gluteus musculature and proximal thigh. I personally reviewed these image(s) along with the resident's/fellow'sinterpretations, certify that if a procedure was performed I wasphysically present, and agree with the final report. Zohra Asagbgautam ANTHROPOMETRIST IMG CT ORDERABLES * EKG, 12-Lead (Portable) (02/14/2024) Only the most recent of5 resultswithin the time period is included. Red Joseph MD ECG ORDERABLES MIHIR IECG * CT Abdomen Pelvis without Contrast (02/13/2024 7:14 PM CDT) Only the most recent of2 resultswithin the time period is included. Anatomical Region Laterality Modality Abdomen, Pelvis Computed Tomogra phy 02/13/2024 7:47 PM CDT Impressions 02/13/2024 8:33 PM CDT Examination is limited by the lack of intravenous contrast. 1. Interval development of a large hematoma in the right gluteus musculature and extending into the proximal right thigh and right piriformis muscle. Assessment for active contrast extravasation cannot be performed due to the lack of intravenous contrast. Discussed with nurse practitioner Zohra Granados at 8:29 PM on 02/13/2024. 2. Hepatic metastatic disease is grossly similar to recent prior CT. 3. Bilateral pleural effusions and pulmonary nodules at the lung bases, similar to prior. 4. Abdominal lymphadenopathy is similar to prior. 5. Diffuse subcutaneous edema/anasarca has increased. Increased ascites. ACTIONABLE ITEMS/RECOMMENDATIONS*: Significant Finding: Large hematoma in the right gluteus musculature and proximal thigh. Narrative 02/13/2024 8:33 PM CDT Examination: CT ABDOMEN PELVIS WO CONTRAST on 02/13/2024 7:14 PM. Clinical History: Cholangiocarcinoma of biliary tract, NOS Indication: anemia Comparison: CT dated 02/05/2024. Technique: CT ABDOMEN PELVIS WO CONTRAST. FINDINGS: Examination is limited by lack of intravenous contrast. Lower Thorax: Large right pleural effusion and moderate left pleural effusion. A few nodules in the lung bases as seen for example on image 1 series 3 are similar to prior. Consolidation/atelectasis in the lower lobes. Hepatobiliary: Multiple low-density lesions scattered in the liver in keeping with metastases, suboptimally evaluated without IV contrast. Reference lesion in the central right hepatic lobe measures 6.4 cm on image 45 series 3, similar to prior a right hepatic lesion on image 43 measures 2.7 cm No biliary dilatation. Cholelithiasis. Spleen: No splenomegaly. Pancreas: Stable unenhanced pancreas. Adrenal Glands: Diffuse nodular thickening of the adrenals redemonstrated. Kidneys: No hydronephrosis. Gastrointestinal Tract: No obstruction. Nasogastric tube terminates in the distal stomach. Pelvic Organs: Rahman catheter in the nondistended urinary bladder. Status post hysterectomy. No adnexal mass. Peritoneum/Retroperitoneum: There is moderate ascites, increased from prior. Lymph Nodes: Abdominal lymphadenopathy is similar to prior. Portacaval node measures approximately 14 mm in short axis. Left para-aortic lymphadenopathy on image 62 measures 14 mm, stable. Retrocrural lymphadenopathy similar to prior. Musculoskeletal: There is new heterogeneous high density fluid in the right gluteus musculature in keeping with hematoma, with hypodensity extending into the right piriformis, and proximal right thigh musculature, measuring approximately 13 x 7 cm in axial dimension on image 146 series 3 and greater than 14 cm in craniocaudal extent. Diffuse subcutaneous edema/anasarca. Status post resection of the right femoral head. Heterogeneous lucency in the proximal right femur redemonstrated. Procedure Note Tomás Cabral MD - 02/13/2024 Examination: CT ABDOMEN PELVIS WO CONTRAST on 02/13/2024 7:14 PM. Clinical History: Cholangiocarcinoma of biliary tract, NOS Indication: anemia Comparison: CT dated 02/05/2024. Technique: CT ABDOMEN PELVIS WO CONTRAST. FINDINGS: Examination is limited by lack of intravenous contrast. Lower Thorax: Large right pleural effusion and moderate left pleuraleffusion. A few nodules in the lung bases as seen for example on image 1series 3 are similar to prior. Consolidation/atelectasis in the lowerlobes. Hepatobiliary: Multiple low-density lesions scattered in the liver inkeeping with metastases, suboptimally evaluated without IV contrast.Reference lesion in the central right hepatic lobe measures 6.4 cm onimage 45 series 3, similar to prior a right hepatic lesion on image 43measures 2.7 cm No biliary dilatation. Cholelithiasis. Spleen: No splenomegaly. Pancreas: Stable unenhanced pancreas. Adrenal Glands: Diffuse nodular thickening of the adrenalsredemonstrated. Kidneys: No hydronephrosis. Gastrointestinal Tract: No obstruction. Nasogastric tube terminates in thedistal stomach. Pelvic Organs: Rahman catheter in the nondistended urinary bladder. Statuspost hysterectomy. No adnexal mass. Peritoneum/Retroperitoneum: There is moderate ascites, increased fromprior. Lymph Nodes: Abdominal lymphadenopathy is similar to prior. Portacavalnode measures approximately 14 mm in short axis. Left para-aorticlymphadenopathy on image 62 measures 14 mm, stable. Retrocrurallymphadenopathy similar to prior. Musculoskeletal: There is new heterogeneous high density fluid in the right gluteusmusculature in keeping with hematoma, with hypodensity extending into theright piriformis, and proximal right thigh musculature, measuringapproximately 13 x 7 cm in axial dimension on image 146 series 3 andgreater than 14 cm in craniocaudal extent. Diffuse subcutaneous edema/anasarca. Status post resection of the right femoral head. Heterogeneous lucency inthe proximal right femur redemonstrated. IMPRESSION: Examination is limited by the lack of intravenous contrast. 1. Interval development of a large hematoma in the right gluteusmusculature and extending into the proximal right thigh and rightpiriformis muscle. Assessment for active contrast extravasation cannot beperformed due to the lack of intravenous contrast. Discussed with nursepractitioner Zohra Granados at 8:29 PM on 02/13/2024. 2. Hepatic metastatic disease is grossly similar to recent prior CT. 3. Bilateral pleural effusions and pulmonary nodules at the lung bases,similar to prior. 4. Abdominal lymphadenopathy is similar to prior. 5. Diffuse subcutaneous edema/anasarca has increased. Increasedascites. ACTIONABLE ITEMS/RECOMMENDATIONS*: Significant Finding: Large hematoma inthe right gluteus musculature and proximal thigh. Yonas Humphries MD IMG CT ORDERABLES * (ABNORMAL) Reticulocyte Count, Auto (02/13/2024 9:42 AM CDT) Reticulocyte Count Automated 2.07 0.92 - 2.71 % 02/13/2024 9:54 AM CDT [facility] RETHE 30.9 29.9 - 38.4 pg 02/13/2024 9:54 AM CDT [facility] IRF 3.7 3.5 - 19.8 % 02/13/2024 9:54 AM CDT [facility] Retic Absolute 0.0335(L) 0.04 - 0.13 M/uL 02/13/2024 9:54 AM CDT [facility] Blood Peripheral blood specimen / Unknown Port / Unknown 02/13/2024 9:42 AM CDT 02/13/2024 9:49 AM CDT Yonas Humphries MD LAB BLOOD ORDERABLE S [facility] Unless otherwise noted, all lab tests performed by: Division of Pathology and Laboratory Medicine [address] [place] [address] [id number] * (ABNORMAL) LDH (02/13/2024 9:42 AM CDT) Only the most recent of3 resultswithin the time period is included. [facility] LDH 968(H) 135 - 214 U/L 02/13/2024 10:50 AM CDT [facility] Blood Peripheral blood specimen / Unknown Port / Unknown 02/13/2024 9:42 AM CDT 02/13/2024 9:49 AM CDT Narrative [facility] - 02/13/2024 10:50 AM CDT Results greater than 1651 U/L may not be reliable due to matrix effect with extended dilution as it exceeds the production assembly operator's recommended limit. Caution should be exercised when interpreting such values and done in conjunction with clinical context. Yonas Humphries MD LAB BLOOD ORDERABLE S [facility] Unless otherwise noted, all lab tests performed by: Division of Pathology and Laboratory Medicine [address] [place] [address] [id number] * Haptoglobin (02/13/2024 9:42 AM CDT) [facility] Haptoglobin 113.0 32.0 - 197.0 mg/dL 02/13/2024 11:35 AM CDT [facility] Blood Peripheral blood specimen / Unknown Port / Unknown 02/13/2024 9:42 AM CDT 02/13/2024 9:49 AM CDT Yonas Humphries MD LAB BLOOD ORDERABLE S [facility] Unless otherwise noted, all lab tests performed by: Division of Pathology and Laboratory Medicine [address] [place] [address] [id number] * (ABNORMAL) Transferrin with TIBC (02/13/2024 5:25 AM CDT) [facility] Transferrin 93(L) 200 - 360 mg/dL 02/13/2024 6:27 AM CDT [facility] Total Iron Binding Capacity 130(L) 250 - 450 mcg/dL 02/13/2024 6:27 AM CDT [facility] Blood Venous blood specimen / Unknown CVC Line / Unknown 02/13/2024 5:25 AM CDT 02/13/2024 5:40 AM CDT Yonas Humphries MD LAB BLOOD ORDERABLE S [facility] Unless otherwise noted, all lab tests performed by: Division of Pathology and Laboratory Medicine [address] [place] [address] [id number] * Iron Level (02/13/2024 5:25 AM CDT) Iron Level 108 37 - 145 mcg/dL 02/13/2024 6:27 AM CDT [facility] Is patient fasting? Yes 02/13/2024 6:27 AM CDT [facility] Blood Venous blood specimen / Unknown CVC Line / Unknown 02/13/2024 5:25 AM CDT 02/13/2024 5:40 AM CDT Yonas Humphries MD LAB BLOOD ORDERABLE S Performing Organization Address City/[facility]/ZIP Co de Phone Number [facility] Unless otherwise noted, all lab tests performed by: Division of Pathology and Laboratory Medicine [address] [place] [address] [id number] * VBG (02/13/2024 5:25 AM CDT) pH Venous 7.35 7.32 - 7.43 02/13/2024 5:40 AM CDT [facility] P CO2 Venous 45.6 41.0 - 51.0 mmHg 02/13/2024 5:40 AM CDT [facility] P O2 Venous 51 mmHg 02/13/2024 5:40 AM CDT [facility] Bicarbonate Venous 25 21 - 28 mmol/L 02/13/2024 5:40 AM CDT [facility] Base Excess Venous 0 -2 - 3 mmol/L 02/13/2024 5:40 AM CDT [facility] Oxygen Saturation Venous 86 % 02/13/2024 5:40 AM CDT [facility] Oxygen FLOW Rate/ FiO2 2 % 02/13/2024 5:40 AM CDT [facility] O2 Therapy Nasal cannula 02/13/2024 5:40 AM CDT [facility] Blood Venous blood specimen / Unknown CVC Line / Unknown 02/13/2024 5:25 AM CDT 02/13/2024 5:38 AM CDT Dilma LUNA LAB BLOOD ORDER MAGGY [facility] Unless otherwise noted, all lab tests performed by: Division of Pathology and Laboratory Medicine [address] [place] [id number] * Folate Level (02/13/2024 5:25 AM CDT) Folate Level 9.4 4.8 - 24.2 ng/mL 02/13/2024 6:38 AM CDT [facility] Comment:Reference range esta blished based on adult population Is patient fasting? Yes 02/13/2024 6:38 AM CDT [facility] Blood Venous blood specimen / Unknown CVC Line / Unknown 02/13/2024 5:25 AM CDT 02/13/2024 5:40 AM CDT Yonas Humphries MD LAB BLOOD ORDERABLE S [facility] Unless otherwise noted, all lab tests performed by: Division of Pathology and Laboratory Medicine [address] [place] [address] [id number] * (ABNORMAL) Ferritin Level (02/13/2024 5:25 AM CDT) Ferritin Level 3,677(H) 13 - 150 ng/mL 02/13/2024 6:47 AM CDT [facility] Blood Venous blood specimen / Unknown CVC Line / Unknown 02/13/2024 5:25 AM CDT 02/13/2024 5:40 AM CDT Narrative [facility] - 02/13/2024 6:47 AM CDT Reference range established for age 17 - 60 years Yonas Humphries MD LAB BLOOD ORDERABLE S [facility] Unless otherwise noted, all lab tests performed by: Division of Pathology and Laboratory Medicine [address] [place] [address] [id number] * (ABNORMAL) Vitamin B12 Level (02/13/2024 5:25 AM CDT) Vitamin B12 Level 2,564(H) 232 - 1,245 pg/mL 02/13/2024 7:06 AM CDT [facility] Comment:Reference range esta blished based on adult population Is patient fasting? Yes 02/13/2024 7:06 AM CDT [facility] Blood Venous blood specimen / Unknown CVC Line / Unknown 02/13/2024 5:25 AM CDT 02/13/2024 5:38 AM CDT Yonas Humphries MD LAB BLOOD ORDERABLE S Performing Organization Address City/[facility]/ZIP Co de Phone Number [facility] Unless otherwise noted, all lab tests performed by: Division of Pathology and Laboratory Medicine [address] [place] [address] [id number] * (ABNORMAL) Urinalysis with Microscopic (02/11/2024 12:50 PM CDT) Only the most recent of3 resultswithin the time period is included. Urine Appearance Bloody(A) Clear 02/11/20 24 1:49 PM CDT [facility] Urine Color Red(A) Colorless , Straw, Light Yellow, Yellow, Dark Yellow, Straw-Yel low 02/11/2024 1:49 PM CDT [facility] Urine Specific [place] 02/11/2024 1:49 PM CDT [facility] Comment:Unable to perform ur ine chemistry testing due to sample being grossly hemolyzed/ turbid/ mucoid. Urine pH 02/11/2024 1:49 PM CDT [facility] Comment:Unable to perform ur ine chemistry testing due to sample being grossly hemolyzed/ turbid/ mucoid. Urine Glucose 02/11/2024 1:49 PM CDT [facility] Comment:Unable to perform ur ine chemistry testing due to sample being grossly hemolyzed/ turbid/ mucoid. Urine Ketones 02/11/2024 1:49 PM CDT [facility] Comment:Unable to perform ur ine chemistry testing due to sample being grossly hemolyzed/ turbid/ mucoid. Urine Blood 02/11/2024 1:49 PM CDT [facility] Comment:Unable to perform ur ine chemistry testing due to sample being grossly hemolyzed/ turbid/ mucoid. Urine Protein 02/11/2024 1:49 PM CDT [facility] Comment:Unable to perform ur ine chemistry testing due to sample being grossly hemolyzed/ turbid/ mucoid. Urine Bilirubin 1:49 PM CDT [facility] Comment:Unable to perform ur ine chemistry testing due to sample being grossly hemolyzed/ turbid/ mucoid. Urine Urobilinogen 02/11/2024 1:49 PM CDT [facility] Comment:Unable to perform ur ine chemistry testing due to sample being grossly hemolyzed/ turbid/ mucoid. Urine Nitrite 02/11/2024 1:49 PM CDT [facility] Comment:Unable to perform ur ine chemistry testing due to sample being grossly hemolyzed/ turbid/ mucoid. Urine Leukocyte Esterase 02/11/2024 1:49 PM CDT [facility] Comment:Unable to perform ur ine chemistry testing due to sample being grossly hemolyzed/ turbid/ mucoid. Urine WBC >182(H) <=2 /HPF 02/11/2024 1:49 PM CDT [facility] Urine RBC >182(H) <=2 /HPF 02/11/2024 1:49 PM CDT [facility] Urine Mucous Not Seen Not Seen, Trace /HPF 02/11/2024 1:49 PM CDT [facility] Urine Bacteria Not Seen Not Seen /HPF 02/11/2024 1:49 PM CDT [facility] Urine Squamous Epithelial Cells Not Seen Not Seen, OCC, Rare /HPF 02/11/2024 1:49 PM CDT [facility] Urine Hyaline Casts 149(H) <=2 /LPF 02/11/2024 1:49 PM CDT [facility] Urine (Urine Rahman) Non-blood Collection / Unknown 02/11/2024 12:50 PM CDT 02/11/2024 12:58 PM CDT Narrative [facility] - 02/11/2024 1:49 PM CDT Some reporting parameters within the Urinalysis test have changed due to the implementation of new instrumentation in the Main [place], allowing greater sensitivity of measurement. Urinalysis results reported by the [facility] using existing instrumentation, as well as Urinalysis testing performed manually or by back-up methodology at the main [place], will remain relatively unchanged. New reporting parameters and units will now be reported for all campuses. Yonas Humphries MD URINE ORDERABLES [facility] Unless otherwise noted, all lab tests performed by: Division of Pathology and Laboratory Medicine [address] [place] [address] [id number] * Urine Culture (02/11/2024 12:50 PM CDT) Only the most recent of4 resultswithin the time period is included. [facility] Urine Culture No Growth. 02/13/2024 11:44 AM CDT [facility] Urine (Urine Rahman) Non-blood Collection / Unknown 02/11/2024 12:50 PM CDT 02/11/2024 12:58 PM CDT Yonas Humphries MD MICROBIOLOGY - GENE RAL ORDERABLES [facility] Unless otherwise noted, all lab tests performed by: Division of Pathology and Laboratory Medicine [address] [place] [address] [phone] * (ABNORMAL) Hemogram (02/11/2024 12:44 PM CDT) [facility] White Blood Cell 13.8(H) 4.1 - 10.5 K/uL 02/11/2024 1:02 PM CDT [facility] Red Blood Cell 2.48(L) 3.99 - 5.46 M/uL 02/11/2024 1:02 PM CDT [facility] Hemoglobin 7.5(L) 12.2 - 15.3 g/dL 02/11/2024 1:02 PM CDT [facility] Hematocrit 23.0(L) 36.4 - 46.8 % 02/11/2024 1:02 PM CDT [facility] Mean Cell Volume 93 82 - 99 fL 02/11/2024 1:02 PM CDT [facility] Mean Cell Hemoglobin 30.2 26.6 - 33.2 pg 02/11/2024 1:02 PM CDT [facility] Mean Cell Hemoglobin Concentration 32.6 31.1 - 35.2 g/dL 02/11/2024 1:02 PM CDT [facility] RDW-SD 54.5(H) 37.5 - 49.7 fL 02/11/2024 1:02 PM CDT [facility] Red Cell Diameter Width 19.2(H) 11.6 - 15.5 % 02/11/2024 1:02 PM CDT [facility] Platelet 64(L) 160 - 397 K/uL 02/11/2024 1:02 PM CDT [facility] Mean Platelet Volume 12.9(H) 9.1 - 12.6 fL 02/11/2024 1:02 PM CDT [facility] INRBC 0.2(H) 0.0 - 0.1 /100 WBC 02/11/2024 1:02 PM T [facility] Comment: The INRBC (instrument NRBC) value reflects the enumeration of nucleated red blood cells contained in a 200uL sample of whole blood analyzed by the instrument. This value may differ from the NRBC value reported in a manual differential, which is based on a 100 cell differential. Blood Peripheral blood specimen / Unknown Port / Unknown 02/11/2024 12:44 PM CDT 02/11/2024 12:50 PM CDT Rylee LUNA LAB BLOOD ORDERABLES [facility] Unless otherwise noted, all lab tests performed by: Division of Pathology and Laboratory Medicine [address] [place] [address] * XR Chest 1 View (02/11/2024 12:51 AM CDT) Only the most recent of10 resultswithin the time period is included. Anatomical Region Laterality Modality Chest Digital Radiogra phy 02/11/2024 6:06 AM CDT Impressions 02/11/2024 6:07 AM CDT No significant change of bilateral lung opacities that may represent pneumonia, aspiration and/or atelectasis. ACTIONABLE ITEMS/RECOMMENDATIONS*: See impression Narrative 02/11/2024 6:07 AM CDT FULL RESULT: Examination: XR CHEST 1 VW on 02/11/2024 12:51 AM. Clinical History: Cholangiocarcinoma of biliary tract, NOS Indication: Shortness of Breath Comparison: 02/10/2024 Technique: Frontal radiograph of the chest Findings: Support Apparatus: Nasogastric tube lies below the level of the diaphragm and inferior edge of the film. Right central catheter and right PICC line with distal tips over the atriocaval junction. Lungs/Pleura/Mediastinum: No significant change of bilateral lung opacities with lower lung predominance. Small bilateral pleural effusions, right greater than the left. No evident pneumothorax. Cardiomediastinal silhouette is stable. Other: Old healed bilateral rib fractures. Procedure Note Chito Hill MD - 02/11/2024 FULL RESULT: Examination: XR CHEST 1 VW on 02/11/2024 12:51 AM. Clinical History: Cholangiocarcinoma of biliary tract, NOS Indication: Shortness of Breath Comparison: 02/10/2024 Technique: Frontal radiograph of the chest Findings: Support Apparatus: Nasogastric tube lies below the level of the diaphragmand inferior edge of the film. Right central catheter and right PICC linewith distal tips over the atriocaval junction. Lungs/Pleura/Mediastinum: No significant change of bilateral lungopacities with lower lung predominance. Small bilateral pleural effusions,right greater than the left. No evident pneumothorax. Cardiomediastinalsilhouette is stable. Other: Old healed bilateral rib fractures. IMPRESSION: No significant change of bilateral lung opacities that may representpneumonia, aspiration and/or atelectasis. ACTIONABLE ITEMS/RECOMMENDATIONS*: See impression Yonas Humphries MD IMG DIAGNOSTIC IMAG ING ORDERABLES * (ABNORMAL) NT-Pro BNP (In-House) (02/10/2024 12:50 AM CDT) Pathologist [facility] NT-ProBNP 11,541(H) <=125 pg/mL 02/10/2024 10:11 AM CDT [facility] Blood Venous blood specimen / Unknown Port / Unknown 02/10/2024 12:50 AM CDT 02/10/2024 1:00 AM CDT Yonas Humphries MD LAB BLOOD ORDERABLE S Performing Organization Address City/[facility] Co de Phone Number [facility] Unless otherwise noted, all lab tests performed by: Division of Pathology and Laboratory Medicine [address] [place] [address] * (ABNORMAL) Lactic Acid, Arterial (02/09/2024 6:30 PM CDT) Only the most recent of10 resultswithin the time period is included. Pathologist [facility] Lactate Arterial 1.4(H) 0.4 - 0.8 mmol/L 02/09/2024 6:38 PM CDT [facility] Art Juvenal Test Yes (Collateral Circulation) 02/09/2024 6:38 PM CDT [facility] Oxygen FLOW Rate/ FiO2 3 % 02/09/2024 6:38 PM CDT [facility] O2 Therapy Nasal cannula 02/09/2024 6:38 PM CDT [facility] Blood Arterial blood specimen / Unknown Port / Unknown 02/09/2024 6:30 PM CDT 02/09/2024 6:36 PM CDT Mary Ann Wood APRN LAB BLOOD ORDERABLE S [facility] Unless otherwise noted, all lab tests performed by: Division of Pathology and Laboratory Medicine [address] [place] [address] [phone] * XR Hip 2 or 3 Views w Pelvis Right (02/09/2024 10:03 AM CDT) Anatomical Region Laterality Modality Hip, Extremity Digital Radiogra phy 02/09/2024 1:38 PM CDT Impressions 02/09/2024 1:44 PM CDT 1. No radiographic indication of complications. 2. Relative lucency at the base of the femoral neck may be secondary to disuse or metastatic disease. Follow-up radiography and/or MRI is recommended. ACTIONABLE ITEMS/RECOMMENDATIONS*: See Impression Narrative 02/09/2024 1:44 PM CDT FULL RESULT: Examination: XR HIP 2 OR 3 VW W PELVIS RIGHT, 02/09/2024 10:03 AM. 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 Pathologic fracture of the right femoral neck. Girdlestone procedure on 01/30/2024. Comparison: Radiography of the right hip 01/24/2024 Technique: XR HIP 2 OR 3 VW W PELVIS RIGHT. Right hip: 2 views with one view of pelvis. Findings: The right femoral head and the majority of the neck are surgically absent. The proximal femur is slightly superior with respect to the acetabulum as can be expected post Girdlestone. No interval development of new fractures. Relative lucency of the base of the right femoral neck may be secondary to disuse or metastatic disease. Follow-up radiography and/or MRI is recommended. The sacroiliac joints and left hip joint spacing and pubic symphysis are intact. Procedure Note Kristi Richard MD - 02/09/2024 FULL RESULT: Examination: XR HIP 2 OR 3 VW W PELVIS RIGHT, 02/09/2024 10:03 AM. 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 Girdlestone procedure on01/30/2024. Comparison: Radiography of the right hip 01/24/2024 Technique: XR HIP 2 OR 3 VW W PELVIS RIGHT. Right hip: 2 views with oneview of pelvis. Findings: The right femoral head and the majority of the neck are surgically absent.The proximal femur is slightly superior with respect to the acetabulum ascan be expected post Girdlestone. No interval development of new fractures. Relative lucency of the base of the right femoral neck may be secondary todisuse or metastatic disease. Follow-up radiography and/or MRI isrecommended. The sacroiliac joints and left hip joint spacing and pubic symphysis areintact. IMPRESSION: 1. No radiographic indication of complications. 2. Relative lucency at the base of the femoral neck may be secondary todisuse or metastatic disease. Follow-up radiography and/or MRI isrecommended. ACTIONABLE ITEMS/RECOMMENDATIONS*: See Impression Eve Casarez APRN IMG DIAGNOSTIC GERA GING ORDERABLES * (ABNORMAL) ABG (02/08/2024 3:55 PM CDT) Only the most recent of11 resultswithin the time period is included. pH Arterial 7.39 7.35 - 7.45 02/08/2024 4:07 PM CDT [facility] P CO2 Arterial 42.2 32.0 - 45.0 mmHg 02/08/2024 4:07 PM CDT [facility] P O2 Arterial 178(H) 83 - 108 mmHg 02/08/2024 4:07 PM CDT [facility] Bicarbonate Arterial 26 21 - 28 mmol/L 02/08/2024 4:07 PM CDT [facility] Base Excess Arterial 1 -2 - 3 mmol/L 02/08/2024 4:07 PM CDT [facility] Oxygen Saturation Arterial 100(H) 95 - 99 % 02/08/2024 4:07 PM CDT [facility] Oxygen FLOW Rate/ FiO2 4 % 02/08/2024 4:07 PM CDT [facility] O2 Therapy Nasal cannula 02/08/2024 4:07 PM CDT [facility] Art Juvenal Test Yes (Collateral Circulation ) 02/08/2024 4:07 PM CDT [facility] Blood Arterial blood specimen / Unknown Arterial Line / Unknown 02/08/2024 3:55 PM CDT 02/08/2024 4:05 PM CDT Mary Ann Wood ANTHROPOMETRIST LAB BLOOD ORDERABLE S [facility] Unless otherwise noted, all lab tests performed by: Division of Pathology and Laboratory Medicine [address] [place] [address] * (ABNORMAL) Hepatic Function Panel (02/08/2024 12:43 AM CDT) Only the most recent of3 resultswithin the time period is included. Bilirubin Total 0.8 0.0 - 1.2 mg/dL 02/08/2024 6:22 AM CDT [facility] Comment:Indocyanine Green (I CG) may cause falsely elevated bilirubin results. Total and direct bilirubin must not be measured from samples containing indocyanine green. False elevation of total bilirubin can be seen in patients with IgG concentrations above 28 g/L. Bilirubin Direct 0.4(H) 0.0 - 0.3 mg/dL 02/08/2024 6:22 AM CDT [facility] Comment:Indocyanine Green (I CG) may cause falsely elevated bilirubin results. Total and direct bilirubin must not be measured from samples containing indocyanine green. Bilirubin Indirect 0.4 0.0 - 0.9 mg/dL 02/08/2024 6:22 AM CDT [facility] Tot Protein 5.2(L) 6.4 - 8.3 gm/dL 02/08/2024 6:22 AM CDT [facility] Alkaline Phosphatase 380(H) 35 - 104 U/L 02/08/2024 6:22 AM CDT [facility] Albumin Level 3.5 3.5 - 5.2 gm/dL 02/08/2024 6:22 AM CDT [facility] AST 43(H) <=32 U/L 02/08/2024 6:22 AM CDT [facility] ALT 15 <=33 U/L 02/08/2024 6:22 AM CDT [facility] Blood Venous blood specimen / Unknown Port / Unknown 02/08/2024 12:43 AM CDT 02/08/2024 12:51 AM CDT Eve Casarez APRN LAB BLOOD ORDERABL ES [facility] Unless otherwise noted, all lab tests performed by: Division of Pathology and Laboratory Medicine [address] [place] [address] * Echocardiogram Agitated Saline for Pulmonary Pressures with Contrast (02/06/2024 9:38 AM CDT) 02/06/2024 7:29 AM CDT Narrative ISCV - 02/06/2024 11:24 AM CDT Echocardiographic Report Interpretation Summary A complete two-dimensional transthoracic echocardiogram was performed (2D, M- mode, Spectral and color Doppler). Micro-Bubbles injection performed because of poor endocardial resolution. There is no comparison study available. Normal left ventricular size and systolic function. Microbubble enhanced LVEF using the Bi-plane method of disks method is 55-60%. The right ventricle is normal in size and function. Right ventricular systolic pressure is elevated at 40-45 mmHg. There is no pericardial effusion. Injection of agitated saline showed no evidence of an interatrial shunt. Left Ventricle: Normal left ventricular size and systolic function. There is normal left ventricular wall thickness. Microbubble enhanced LVEF using the Bi-plane method of disks method is 55-60%. I WMSI = 1.00 % Normal = 100 X - Cannot 1 - Normal 2 - 3 - Akinetic 4 - Dyskinetic Interpret Hypokinetic 5 - Aneurysmal 3D imaginD volumes were not performed in this study. Cardiac Mechanics/Speckle Tracking Imaging: Speckle tracking imaging was not performed in this study. (Circuport Study). Diastology: LV relaxation appears normal. Right Ventricle: The right ventricle is normal in size and function. Normal RV systolic function using TAPSE criteria. Atria: The left atrial size is normal. Right atrial size is normal. Injection of agitated saline showed no evidence of an interatrial shunt. Mitral Valve: Mild thickening changes are noted. There is mild to moderate mitral regurgitation. Tricuspid Valve: The tricuspid valve is not well visualized, but is grossly normal. There is trace tricuspid regurgitation. Right ventricular systolic pressure is elevated at 40- 45 mmHg. Aortic Valve: Mild aortic valve thickening. The aortic valve opens well. Pulmonic Valve: The pulmonic valve is not well visualized. Great Vessels: The aortic root is normal size. The inferior vena cava demonstrates normal size and normal respiratory variation. Pericardium/Pleural: There is no pericardial effusion. Ascites noted. Preliminary Reviewer Preliminary Interpretation: Brielle Wu MD. MMode/2D Measurements IVSd: 0.67 cm LVIDd: 5.0 cm LVIDs: 3.5 cm LVPWd: 0.70 cm FS: 28.6 % Ao root diam: 2.5 cm Ao root area: 5.1 cm2 LA dimension: 3.9 cm LVOT diam: 2.1 cm EDV(MOD-A4C): 97.1 ml ESV(MOD-A4C): 39.4 ml LVOT area: 3.3 cm2 EF(MOD-A4C): 59.4 % EDV(MOD-A2C): 92.6 ml ESV(MOD-A2C): 38.0 ml EDV(MOD-bp): 95.6 ml EF(MOD-A2C): 58.9 % ESV(MOD-bp): 39.8 ml EF(MOD-bp): 58.4 % LAV(MOD-A2C): 21.8 ml EDV (MOD-bp) Index: 55.0 ml/m2 LAV(MOD-A4C): 40.8 ml LAV(MOD-bp): 35.0 ml LAV(MOD-bp) Indexed: 20.1 ml/m2 ESV (MOD-bp) Index: 22.9 ml/m2 RWT: 0.28 cm TAPSE (>1.6): 2.3 cm Doppler Measurements MV E max ugo: 109.3 cm/sec MV V2 max: 126.2 cm/sec MV A max ugo: 66.9 cm/sec MV max P.4 mmHg MV E/A: 1.6 MV V2 mean: 77.1 cm/sec MV mean P.7 mmHg MV V2 VTI: 16.2 cm MVA(VTI): 3.5 cm2 Ao V2 max: 119.7 cm/sec LV V1 max P.4 mmHg Ao max P.7 mmHg LV V1 mean P.1 mmHg Ao V2 mean: 64.2 cm/sec LV V1 max: 115.7 cm/sec Ao mean P.0 mmHg LV V1 mean: 67.0 cm/sec Ao V2 VTI: 15.2 cm LV V1 VTI: 17.2 cm MARY(I,D): 3.8 cm2 MARY(V,D): 3.2 cm2 SV(LVOT): 57.4 ml Med Peak E' Ugo: 9.6 cm/sec Lat Peak E' Ugo: 10.1 cm/sec TR max ugo: 310.5 cm/sec TR max P.7 mmHg RVSP(TR): 41.7 mmHg RAP systole: 3.0 mmHg RV S Vel_phl: 10.6 cm/sec MARY Index (I,D): 2.2 MARY Index (V,D): 1.9 Dimensionless Index: 0.97 E/e' (avg): 11.1 E/e' (lat): 10.9 E/e' (sept): 11.4 Procedure Note Juan Jose Marrufo MD - 02/06/2024 Echocardiographic Report Interpretation Summary A complete two-dimensional transthoracic echocardiogram was performed (2D,M- mode, Spectral and color Doppler). Micro-Bubbles injection performedbecause of poor endocardial resolution. There is no comparison studyavailable. Normal left ventricular size and systolic function. Microbubble enhanced LVEF using the Bi-plane method of disks method is55-60%. The right ventricle is normal in size and function. Right ventricular systolic pressure is elevated at 40-45 mmHg. There is no pericardial effusion. Injection of agitated saline showed no evidence of an interatrial shunt. Left Ventricle: Normal left ventricular size and systolic function. There is normal leftventricular wall thickness. Microbubble enhanced LVEF using the Bi-planemethod of disks method is 55-60%. I WMSI = 1.00 % Normal = 100 X - Cannot 1 - Normal 2 - 3 - Akinetic 4 - Dyskinetic Interpret Hypokinetic 5 - Aneurysmal 3D imaginD volumes were not performed in this study. Cardiac Mechanics/Speckle Tracking Imaging: Speckle tracking imaging was not performed in this study. (Circuport Study). Diastology: LV relaxation appears normal. Right Ventricle: The right ventricle is normal in size and function. Normal RV systolicfunction using TAPSE criteria. Atria: The left atrial size is normal. Right atrial size is normal. Injection ofagitated saline showed no evidence of an interatrial shunt. Mitral Valve: Mild thickening changes are noted. There is mild to moderate mitralregurgitation. Tricuspid Valve: The tricuspid valve is not well visualized, but is grossly normal. Thereis trace tricuspid regurgitation. Right ventricular systolic pressure iselevated at 40-45 mmHg. Aortic Valve: Mild aortic valve thickening. The aortic valve opens well. Pulmonic Valve: The pulmonic valve is not well visualized. Great Vessels: The aortic root is normal size. The inferior vena cava demonstrates normalsize and normal respiratory variation. Pericardium/Pleural: There is no pericardial effusion. Ascites noted. Preliminary Reviewer Preliminary Interpretation: Brielle Wu MD. MMode/2D Measurements IVSd: 0.67 cmLVIDd: 5.0 cm LVIDs: 3.5 cm LVPWd: 0.70 cm FS: 28.6 %Ao root diam: 2.5 cm Ao root area: 5.1 cm2 LA dimension: 3.9 cm LVOT diam: 2.1 cmEDV(MOD-A4C): 97.1 ml ESV(MOD-A4C): 39.4 ml LVOT area: 3.3 cm2EF(MOD-A4C): 59.4 % EDV(MOD-A2C): 92.6 ml ESV(MOD-A2C): 38.0 mlEDV(MOD-bp): 95.6 ml EF(MOD-A2C): 58.9 %ESV(MOD-bp): 39.8 ml EF(MOD-bp): 58.4 % LAV(MOD-A2C): 21.8 mlEDV (MOD-bp) Index: 55.0 ml/m2 LAV(MOD-A4C): 40.8 ml LAV(MOD-bp): 35.0 ml LAV(MOD-bp) Indexed: 20.1 ml/m2 ESV (MOD-bp) Index: 22.9 ml/m2RWT: 0.28 cm TAPSE (>1.6): 2.3 cm Doppler Measurements MV E max ugo: 109.3 cm/secMV V2 max: 126.2 cm/sec MV A max ugo: 66.9 cm/secMV max P.4 mmHg MV E/A: 1.6MV V2 mean: 77.1 cm/sec MV mean P.7 mmHg MV V2 VTI: 16.2 cm MVA(VTI): 3.5 cm2 Ao V2 max: 119.7 cm/secLV V1 max P.4 mmHg Ao max P.7 mmHgLV V1 mean P.1 mmHg Ao V2 mean: 64.2 cm/secLV V1 max: 115.7 cm/sec Ao mean P.0 mmHgLV V1 mean: 67.0 cm/sec Ao V2 VTI: 15.2 cmLV V1 VTI: 17.2 cm MARY(I,D): 3.8 cm2 MARY(V,D): 3.2 cm2 SV(LVOT): 57.4 mlMed Peak E' Ugo: 9.6 cm/sec Lat Peak E' Ugo: 10.1 cm/secTR max ugo: 310.5 cm/sec TR max P.7 mmHg RVSP(TR): 41.7 mmHg RAP systole: 3.0 mmHgRV S Vel_phl: 10.6 cm/sec MARY Index (I,D): 2.2AVA Index (V,D): 1.9 Dimensionless Index: 0.97E/e' (avg): 11.1 E/e' (lat): 10.9E/e' (sept): 11.4 Mary Ann Wood ANTHROPOMETRIST CV ECHO ORDERABLES ISCV * VRE Culture (02/06/2024 12:23 AM CDT) Only the most recent of2 resultswithin the time period is included. VRE Culture No Vancomycin-Resi stant Enterococci isolated. 02/08/2024 11:52 AM CDT [facility] Swab Rectum structure / Unknown Non-blood Collection / Unknown 02/06/2024 12:23 AM CDT 02/06/2024 12:29 AM CDT Yonas Humphries MD MICROBIOLOGY - GENE RAL ORDERABLES [facility] Unless otherwise noted, all lab tests performed by: Division of Pathology and Laboratory Medicine [address] [place] [address] [place] [id number] * (ABNORMAL) Basic Metabolic Panel- Total Calcium (02/06/2024 12:20 AM CDT) Only the most recent of12 resultswithin the time period is included. eGFR 69 >=60 mL/min/1.7 3 sq. m 02/06/2024 1:43 AM CDT [facility] Comment: The eGFRcr is calculated with the 2020 CKD-EPI creatinine equation using creatinine, patient's age, and sex for adults 18 years of age and older. Other factors, especially muscle mass, may affect accuracy and need to be considered. According to the Kidney Disease: Improving Global Outcomes (KDIGO) CKD Work Group 2012 Clinical Practice Guideline, chronic kidney disease (CKD) is defined as the abnormalities of kidney structure or function, present for more than 3 months, with implications for health. CKD should be classified by cause, GFR category, and albuminuria category. KDIGO guidelines provide the following GFR categories. Stage / Description / GFR mL/min/1.73 m2: G1* / Normal or high / >= 90 G2* / Mildly decreased / 60-89 G3a / Mildly to moderately decreased / 45-59 G3b / Moderately to severely decreased / 30-44 G4 / Severely decreased / 15-29 G5 / Kidney failure / <15 *In the absence of evidence of kidney damage, neither G1 nor G2 fulfill criteria for CKD. Calcium Level Total 7.4(L) 8.2 - 10.2 mg/dL 02/06/2024 1:43 AM CDT [facility] Sodium Level 145 136 - 145 mmol/L 02/06/2024 1:43 AM CDT [facility] Potassium Level 4.0 3.4 - 4.5 mmol/L 02/06/2024 1:43 AM CDT [facility] Chloride 111(H) 98 - 107 mmol/L 02/06/2024 1:43 AM CDT [facility] CO2 19(L) 22 - 29 mmol/L 02/06/2024 1:43 AM CDT [facility] Anion Gap 15(H) 4 - 14 mmol/L 02/06/2024 1:43 AM CDT [facility] Creatinine 0.92 0.51 - 0.95 mg/dL 02/06/2024 1:43 AM CDT [facility] BUN 30(H) 6 - 23 mg/dL 02/06/2024 1:43 AM CDT [facility] Glucose Level 164(H) 70 - 99 mg/dL 02/06/2024 1:43 AM CDT [facility] Comment: Effective 06/23/16, the glucose reference intervals have been updated based on [place] Diabetes [employer] guidelines (Standards of Medical Care in Diabetes 2016. Diabetes Care 2016; 39: S13-S22). Fasting blood glucose: Normal: 70-99 mg/dL Impaired fasting glucose (increased risk for diabetes or pre-diabetes): 100-125 mg/dL Diabetes mellitus: >/=126 mg/dL Random blood glucose: Normal: 70-199 mg/dL Note: Random glucose >100 mg/dL is associated with increased risk for diabetes. Blood Venous blood specimen / Unknown Port / Unknown 02/06/2024 12:20 AM CDT 02/06/2024 12:27 AM CDT Klaus Figueroa APRN LAB BLOOD ORDERAB LES [facility] Unless otherwise noted, all lab tests performed by: Division of Pathology and Laboratory Medicine [address] [place] [id number] * Cortisol, Total (02/06/2024 12:20 AM CDT) Cortisol 29.30 mcg/dL 02/06/2024 9:5 6 AM CDT [facility] Blood Venous blood specimen / Unknown Port / Unknown 02/06/2024 12:20 AM CDT 02/06/2024 12:27 AM CDT Narrative [facility] - 02/06/2024 9:56 AM CDT Cortisol reference intervals are established for the morning hours from 6-10 am and afternoon hours 4-8 pm. Due to circadian rhythm of cortisol levels in serum and plasma, the sample collection time must be noted. Caution should be exercised when interpreting such values and done in conjunction with clinical context. Serum Cortisol Reference Ranges for >/= 21 years old: Morning (6-10 am): 4.82 - 19.5 mcg/dL Afternoon (4-8 pm): 2.47 - 11.9 mcg/dL Mary Ann Wood APRN LAB BLOOD ORDERABLE S [facility] Unless otherwise noted, all lab tests performed by: Division of Pathology and Laboratory Medicine [address] [place] [id number] * Tip Verification Central Vascular Access Device (02/05/2024 3:30 PM CDT) Narrative Mary Ann Wood APRN - 02/05/2024 3:30 PM CDT Mary Ann Wood APRN 02/05/2024 3:31 PM Central Vascular Access Device Tip Verification Performed by: Mary Ann Wood APRN Authorized by: Mary Ann Wood APRN [employer] Date device placed: 02/05/2024 Placed by: Loi Villanueva RN Device placement location: [facility] Catheter Type: PICC Catheter lumen: Double lumen Vein location: Brachial Laterality: Right Tip in good position and cleared for infusion Mary Ann Wood APRN IV THERAPY ORDERABL ES * Legionella Antigen, Urine (02/05/2024 2:48 PM CDT) [facility] Legionella Antigen - Interpretation Negative Negative 02/06/2024 2:46 PM CDT [facility] Comment:Negative for L. pneu mophila serogroup 1 antigen, suggesting no recent or current infection. A negative result does not completely rule out infection as urine antigen present may be below the detection limit of the test, especially early in infection. In addition, infections due to other serogroups and species of Legionella are not detected by this assay. Urine Voided urine specimen / Unknown Non-blood Collection / Unknown 02/05/2024 2:48 PM CDT 02/05/2024 3:17 PM CDT Narrative [facility] - 02/06/2024 2:46 PM CDT Testing is performed using the [employer] Legionella Urinary Antigen Card, an immunochromatographic assay for the qualitative detection of Legionella pneumophila serogroup 1 antigen in urine specimens from patients with symptoms of pneumonia. It is intended to aid in the presumptive diagnosis of infection caused by L. pneumophila serogroup 1 in conjunction with culture and other methods. This is an FDA-approved assay and its performance characteristics were verified by the microbiology laboratory at the [facility] [place]. Results must be interpreted within the context of all relevant clinical and laboratory findings. Mary Ann Wood CORNEL MICROBIOLOGY - GENE RAL ORDERABLES [facility] Unless otherwise noted, all lab tests performed by: Division of Pathology and Laboratory Medicine [facility] [place] [address] * XR Chest 1 View Post Implant (02/05/2024 2:34 PM CDT) Anatomical Region Laterality Modality Chest Digital Radiogra phy 02/05/2024 4:22 PM CDT Impressions 02/05/2024 4:24 PM CDT 1. Right PICC terminates over the lower superior vena cava without evidence of complication. 2. Increasing bilateral pleural effusions, right greater than left. Increasing left basilar airspace disease concerning for aspiration or pneumonia. Right lower lobe pneumonia is unchanged. ACTIONABLE ITEMS/RECOMMENDATIONS*: None. Narrative 02/05/2024 4:24 PM CDT FULL RESULT: Examination: XR CHEST 1 VW POST IMPLANT on 02/05/2024 2:34 PM. Clinical History: Cholangiocarcinoma of biliary tract, NOS Indication: Confirm PICC placement Comparison: Chest portable 02/05/2024 and 0025 hours Technique: Frontal radiograph of the chest Findings: Support Apparatus: Interval placement of a right peripherally longline catheter, terminating over the lower superior vena cava near the cavoatrial junction. The endotracheal tube tip projects 2.5 cm above the lois, low normal. Right infusion port catheter and nasogastric tube are unchanged.. Lungs/Pleura/Mediastinum: Continued increase in left lower lobe patchy opacity and layering left pleural effusion. Right pleural effusion is also increased. Right lower lobe pneumonia persists. No pneumothorax. Pulmonary vascular clarity is diminished. The cardiomediastinal silhouette is unchanged given patient rotation. Procedure Note Shania Aranda MD - 02/05/2024 FULL RESULT: Examination: XR CHEST 1 VW POST IMPLANT on 02/05/2024 2:34 PM. Clinical History: Cholangiocarcinoma of biliary tract, NOS Indication: Confirm PICC placement Comparison: Chest portable 02/05/2024 and 0025 hours Technique: Frontal radiograph of the chest Findings: Support Apparatus: Interval placement of a right peripherally longlinecatheter, terminating over the lower superior vena cava near thecavoatrial junction. The endotracheal tube tip projects 2.5 cm above thecarina, low normal. Right infusion port catheter and nasogastric tube areunchanged.. Lungs/Pleura/Mediastinum: Continued increase in left lower lobe patchyopacity and layering left pleural effusion. Right pleural effusion is alsoincreased. Right lower lobe pneumonia persists. No pneumothorax. Pulmonaryvascular clarity is diminished. The cardiomediastinal silhouette isunchanged given patient rotation. IMPRESSION: 1. Right PICC terminates over the lower superior vena cava withoutevidence of complication. 2. Increasing bilateral pleural effusions, right greater than left.Increasing left basilar airspace disease concerning for aspiration orpneumonia. Right lower lobe pneumonia is unchanged. ACTIONABLE ITEMS/RECOMMENDATIONS*: None. Mary Ann Wood APRN IMG DIAGNOSTIC IMAG ING ORDERABLES * Insert Vascular Access Device: PICC (02/05/2024 2:09 PM CDT) Anatomical Region Laterality Modality Ultrasound Narrative 02/05/2024 2:17 PM CDT Date of Procedure: 02/05/24 Title of Procedure: Percutaneous Image-Guided PICC Insertion Proceduralist: Loi Villanueva RN Ordered By: Mary Ann Wood APRN Procedure Location: ICU [facility] Consultant Present: Yes Dominique Chaidez RN Pre Procedure Diagnosis: Cholangiocarcinoma of biliary tract, NOS Post Procedure Diagnosis: Unchanged Indication: Vascular Access. Title of Procedure: Percutaneous Image-Guided Non-Tunneled PICC line insertion Pre Procedure Evaluation: Patient examined pre-procedure and assessment (including allergies, labs, imaging, history and physical exam) performed. Pre-procedure the patient was MDA VAP pre-procdure patient condition: alert. Informed consent obtained prior to procedure, the risks, benefits, and alternative dicussed with patient/designated personal financial representative. Time out: universal protocol time out performed and documented. Anesthesia: MDA VAP anesthesia: local infiltration Local Anesthetic: MDA VAP local anes (PICC): Lidocaine 1% without Epinephrine Sedation/Anxiolysis: Local anesthesia only (see MAR) and None Sedation: See [facility] for details/ICU Vital signs: Vital signs monitored during procedure/sedation Procedure in Detail: Site preparation: PICC catheter insertion tray used. Patient placed in Flat/supine, Head of Bed Elevated 20-30 degrees, and Head Turned to Side position. The insertion site was anesthetized with lidocaine 1% without epinephrine via subcutaneous needle . A high level disinfected ultrasound probe with sterile cover was used for guidance. Venous access obtained using the micropuncture needle. and Non-pulsatile dark red blood obtained. A permanent record of the ultrasound-guided vessel puncture image has been stored. Modified Seldinger Technique. MicroIntroducer with sheath inserted. Dilator with peel away sheath inserted over guidewire. Guidewire removed, examined, and found to be intact. Drip test performed to confirm venous placement. A new central venous catheter was inserted successfully with good flow and blood return in all lumens. Number of attempts: 1 Vein Location/Laterality: right basilic Catheter Lumen: double lumen Catheter size: 4Fr Catheter Type: power rated Catheter Internal Length:37cm Catheter External Length:0cm Catheter Trim Length:37cm Estimated Blood Loss: Minimal Catheter Vein Ratio: less than 45% Post Procedure: Each lumen evacuated of air and flushed with sterile saline and Needleless connector and IV tubing attached to catheter. Post procedure site: suture/secured in place, the site cleaned and sterile transparent dressing applied with biopatch, and the dressing labeled with date, time, and initial Assessment: Catheter re-assessed and blood returned through all lumens and patent to flush. Complications: no immediate complication Patient Condition: patient tolerated the procedure well with no immediate complications, patient does not report adverse symptoms, patient remained hemodynamically stable throughout the procedure, and patient is warm and well perfused Responsiveness: sedated Patient Disposition: remain in ICU bed, report given to bedside nurse, and printed education material provided to patient/caregiver Midarm circumference:26cm Forearm circumference:19cm Additional Comments: None Mary Ann Wood APRN IMG VAP ORDERABLES * AFB Smear (02/05/2024 11:17 AM CDT) Only the most recent of2 resultswithin the time period is included. AFB Smear - Truant Stain No Acid-Fast Bacilli seen on fluorescent stain of Direct Specimen. No AFB seen 02/06/2024 2:56 PM CDT [facility] AFB Smear - Kinyoun Stain No Acid-Fast Bacilli seen in Confirmatory Smear. No AFB seen 02/06/2024 2:56 PM CDT [facility] Washing (Lung, Right Lower Lobe) Non-blood Collection / Unknown 02/05/2024 11:17 AM CDT 02/05/2024 11:53 AM CDT Mary Ann Wood APRN MICROBIOLOGY - GENE RAL ORDERABLES [facility] Unless otherwise noted, all lab tests performed by: Division of Pathology and Laboratory Medicine [address] [place] [id number] * Respiratory Viral Panel, Send-Out (02/05/2024 11:17 AM CDT) RVP Adenovirus Not Detected Not Detected 02/08/2024 2:34 AM CDT [facility] ([facility]) Comment: Detects Serotypes B and E. Detection of Serotype C may be limited. If Adenovirus infection is suspected and a Not Detected result is returned the sample should be re-tested for adenovirus using an independent method (e.g. Simparel Viracor Adenovirus Quantitative Real-time PCR test). RVP Enterovirus/Rhinov irus Not Detected Not Detected 02/08/2024 2:34 AM CDT [facility] ([facility]) RVP Bocavirus Not Detected Not Detected 02/08/2024 2:34 AM CDT [facility] ([facility]) RVP Coronavirus Not Detected Not Detected 02/08/2024 2:34 AM CDT [facility] ([facility]) Comment: This test does NOT assay for the novel 2019 Coronavirus out of [place]. This test detects the respiratory Coronaviruses: types 229E, OC43, NL63, and HKU1. RVP Metapneumovirus Not Detected Not Detected 02/08/2024 2:34 AM CDT [facility] ([facility]) RVP Influenza A Not Detected Not Detected 02/08/2024 2:34 AM CDT [facility] ([facility]) RVP Influenza A-[id number] Not Detected Not Detected 02/08/2024 2:34 AM CDT [facility] ([facility]) RVP Influenza B Not Detected Not Detected 02/08/2024 2:34 AM CDT [facility] ([facility]) RVP Parainfluenza Not Detected Not Detected 02/08/2024 2:34 AM CDT [facility] ([facility]) RVP Respiratory Syncytial Not Detected Not Detected 02/08/2024 2:34 AM CDT [facility] ([facility]) Comment: BRONCH WASH RLL The Respiratory Syncytial Viral assay detects both types A and B, however it does not distinguish between the two. Target Enriched Multiplex Polymerase Chain Reaction (TEM-PCR) allows for the detection of multiple pathogens out of a single reaction. This test was developed and its performance characteristics determined by [facility]. It has not been cleared or approved by the U.S. Food and Drug Administration. Results should be used in conjunction with clinical findings, and should not form the sole basis for a diagnosis or treatment decision. TEM-PCR is a licensed technology of [employer]. Testing Performed At: [facility] [address] [place] [address], [place] [address] [employer] Liner Assembler: Marco Antonio Robbins, PhD [facility] ([facility]) CLIA # [id number] FLAG Interpretation: A = Abnormal, H = High, L = Low Washing (Bronchus, Right Lower Lobe) Non-blood Collection / Unknown 02/05/2024 11:17 AM CDT 02/05/2024 11:53 AM CDT Mary Ann Wood ANTHROPOMETRIST MICROBIOLOGY - GENE RAL ORDERABLES [facility] ([facility]AK[facility]) * Pneumocystis Quant PCR, Bronch Wash (02/05/2024 11:17 AM CDT) P. jiroveci Br Wash-Viracor Not Detected Not Detected copies/mL 02/07/2024 8:31 AM CDT [facility] ([facility]) Comment: Assay Range: 84 copies/mL to 1.00E+08 copies/mL The limit of quantitation (LOQ) is 84 copies/mL. Pneumocystis jiroveci DNA detected below the LOQ will be reported as Detected:<84 copies/mL. This test was developed and its performance characteristics determined by [facility]. It has not been cleared or approved by the U.S. Food and Drug Administration. Results should be used in conjunction with clinical findings, and should not form the sole basis for a diagnosis or treatment decision. Testing Performed At: [facility] [address] [place] [address] [employer] Liner Assembler: Marco Antonio Robbins, PhD [facility] ([facility]) CLIA # [id number] FLAG Interpretation: A = Abnormal, H = High, L = Low Washing (Bronchus, Right Lower Lobe) Non-blood Collection / Unknown 02/05/2024 11:17 AM CDT 02/05/2024 11:53 AM CDT Mary Ann Wood APRN MICROBIOLOGY - GENE RAL ORDERABLES [facility] ([facility]) * CMV Quant PCR, Bronch Wash (02/05/2024 11:17 AM CDT) CMV Br Wash-Viracor Not Detected Not Detected IU/mL 02/07/2024 9:19 AM CDT [facility] ([facility]) Comment: Assay Range: 79 IU/mL to 1.88E+08 IU/mL The limit of quantitation (LOQ) is 79 IU/mL. CMV DNA detected below the LOQ will be reported as Detected:<79 IU/mL. This test was developed and its performance characteristics determined by [facility]. It has not been cleared or approved by the U.S. Food and Drug Administration. Results should be used in conjunction with clinical findings, and should not form the sole basis for a diagnosis or treatment decision. Testing Performed At: [facility] [address] [place] [address] [employer] Liner Assembler: Marco Antonio Robbins, PhD [facility] ([facility]) IA # [id number] FLAG Interpretation: A = Abnormal, H = High, L = Low Washing (Bronchus, Right Lower Lobe) Non-blood Collection / Unknown 02/05/2024 11:17 AM CDT 02/05/2024 11:53 AM CDT Mary Ann Wood APRN MICROBIOLOGY - GENE RAL ORDERABLES Performing Organization Address City/[facility] Co de Phone Number [facility] ([place]) * (ABNORMAL) Lower Respiratory Culture w/ Gram Stain (02/05/2024 11:17 AM CDT) Only the most recent of3 resultswithin the time period is included. Lower Respiratory Culture Mold(A) 02/12/2024 9:40 AM CDT [facility] Comment:See Fungal Culture f or Final Identification. Gram Stain Few WBCs seen. 02/12/2024 9:40 AM CDT [facility] Gram Stain No organisms seen. 02/12/2024 9:40 AM CDT [facility] Washing (Lung, Right Lower Lobe) Non-blood Collection / Unknown 02/05/2024 11:17 AM CDT 02/05/2024 11:53 AM CDT Mary Ann Wood APRN MICROBIOLOGY - GENE RAL ORDERABLES Performing Organization Address [facility] Co de Phone Number [facility] Unless otherwise noted, all lab tests performed by: Division of Pathology and Laboratory Medicine [address] [place] [id number] * BRONCHOSCOPY WITH CONSCIOUS SEDATION (02/05/2024 11:00 AM CDT) Narrative Allan Hussein MD - 02/05/2024 11:00 AM CDT Allan Hussein MD 02/05/2024 1:06 PM Bronchoscopy Site: oral ETT Date/Time: 02/05/2024 11:00 AM Provider Information: Performed by: Allan Hussein MD Authorized by: Allan Hussein MD Patient Diagnosis: Pre-operative diagnosis: Acute respiratory failure with hypoxia Bilateral pneumonia Post-operative diagnosis: unchanged Indication: Indications for procedure: to establish a diagnosis Procedure Details: FLEXIBLE FIBREOPTIC VIDEO BRONCHOSCOPY TYPE: Ambuscope - HD INDICATION: Bilateral pulmonary infiltrates, Pneumonia, and BAL/washings for microbiology and/or cytology PRE- AND POST -PROCEDURE DIAGNOSIS: Acute respiratory failure, Bilateral pulmonary infiltrates, and Pneumonia AUGER PRESS OPERATOR: Victor Hugo Hussein M.D. MEDICATIONS USED: fentanyl infusion ESTIMATED BLOOD LOSS: None COMPLICATIONS: None PROCEDURE IN DETAIL: CONSENT: Informed consent was obtained from the patient's family after explaining the risk of the procedure and the need for this procedure. PATIENT IDENTIFICATION: A time out was called and proper patient identification was carried out prior to the procedure. The institutional procedure safety checklist was performed. BRONCHOSCOPIC FINDINGS: I performed bronchoscopy via her ETT. She was placed on FiO2 100% prior to the procedure. The lois and proximal airways were noted to be filled with thin/foamy/whitish secretions that were easily aspirated. Similar secretions noted to be extending to LLL and RLL segments, but no significant mucus plugging noted. Some more ropy/gonzalez secretions were aspirated from RLL segments. Airways were mildly friable and edematous SPECIMEN: Bronchial washings SENT FOR: Microbiology DISPOSITION: The patient tolerated the procedure well. There were no immediate post procedure complications noted and the patient will remain in the ICU SPECIAL INSTRUCTIONS: None Specimen(s) Removed: Specimen(s) removed: specimen collected Specimen(s): Bronchial washings Disposition of Specimen: Specimen disposition: microbiology Estimated Blood Loss: Estimated blood loss: none Complications: Complications: none Patient Disposition: Patient disposition: remain in current area Allan Hussein MD PROCEDURE/MINOR SURG ICAL ORDERABLES * (ABNORMAL) Cardiac Panel (02/05/2024 10:45 AM CDT) Only the most recent of4 resultswithin the time period is included. Creatine Kinase 57 26 - 192 U/L 02/05/2024 11:42 AM CDT [facility] CKMB 8.5(H) <=5.3 ng/mL 02/05/2024 11:42 AM CDT [facility] Troponin T 266(C) <=19 ng/L 02/05/2024 11:42 AM CDT [facility] Comment: < 19 ng/L Suggest retest at 3 to 6 hours later to rule out myocardial infarction >= 19 to <=52 ng/L Possible myocardial injury. Suggest retest at 3 hours. - a change of < 20 ng/L, retest at 6 hours - a change of >= 20 ng/L, suggestive of myocardial infarction > 52 ng/L Suggestive of myocardial infarction Critical value will be reported when cTnT is > 52 ng/L and only reported for the first in a series. Hemolyzed specimens with Hemolysis Index >100 (100 mg/dl or moderate hemolysis) may cause interferences and falsely low results. Blood Peripheral blood specimen / Unknown Port / Unknown 02/05/2024 10:45 AM CDT 02/05/2024 10:50 AM CDT Kenney LUNA LAB BLOOD ORDERABLES [facility] Unless otherwise noted, all lab tests performed by: Division of Pathology and Laboratory Medicine [address] [place] [id number] * X-ray Abdomen 1 View Portable (02/05/2024 8:59 AM CDT) Anatomical Region Laterality Modality Abdomen Digital Radiogra phy 02/05/2024 9:44 AM CDT Impressions 02/05/2024 9:45 AM CDT 1. Nonobstructed bowel gas pattern. 2. Bilateral pleural effusions and atelectasis right greater than left. Narrative 02/05/2024 9:45 AM CDT FULL RESULT: Examination: XR ABDOMEN 1 VW PORTABLE on 02/05/2024 8:59 AM Clinical History: 63-year-old patient with history of cholangiocarcinoma Indication: Tube Placement (nasogastric/gastric) Comparison: Pelvic x-ray on 01/30/[address] of the abdomen and pelvis on 02/05/2024. TECHNIQUE: XR ABDOMEN 1 VW PORTABLE FINDINGS: Tubes and lines: NG tube remains in good position with tip terminating at the gastric body. Lung bases: Persistent bilateral pleural effusions and atelectasis right greater than left. Abdomen and pelvis: Nonobstructed bowel gas pattern. Vascular calcifications are present Bones: No lytic or blastic lesions are identified. Procedure Note Eulogio Granados MD - 02/05/2024 FULL RESULT: Examination: XR ABDOMEN 1 VW PORTABLE on 02/05/2024 8:59 AM Clinical History: 63-year-old patient with history of cholangiocarcinoma Indication: Tube Placement (nasogastric/gastric) Comparison: Pelvic x-ray on 01/30/[address] of the abdomen and pelvis on02/05/2024. TECHNIQUE: XR ABDOMEN 1 VW PORTABLE FINDINGS: Tubes and lines: NG tube remains in good position with tip terminating atthe gastric body. Lung bases: Persistent bilateral pleural effusions and atelectasis rightgreater than left. Abdomen and pelvis: Nonobstructed bowel gas pattern. Vascularcalcifications are present Bones: No lytic or blastic lesions are identified. IMPRESSION: 1. Nonobstructed bowel gas pattern. 2. Bilateral pleural effusions and atelectasis right greater than left. Mary Ann Wood APRN IMG DIAGNOSTIC IMAG ING ORDERABLES * CT Chest without Contrast (02/05/2024 8:08 AM CDT) Anatomical Region Laterality Modality Chest Computed Tomogra phy 02/05/2024 8:13 AM CDT Impressions 02/05/2024 8:29 AM CDT 1. Development of right lower lobe pneumonia. 2. New pulmonary and subcutaneous soft tissue edema. Increased pleural effusions and ascites. 3. Multicompartment lymphadenopathy and multiple pulmonary metastases, stable or decreased. 4. Increased manubrial metastasis with soft tissue component. ACTIONABLE ITEMS/RECOMMENDATIONS*: None. Narrative 02/05/2024 8:29 AM CDT FULL RESULT: Examination: CT CHEST WO CONTRAST on 02/05/2024 8:08 AM. Clinical History: Cholangiocarcinoma of biliary tract, NOS Indication: Dyspnea Comparison: CT chest abdomen pelvis 12/06/2023 Technique: CT of the chest is performed without intravenous contrast. Findings: Right infusion port catheter terminates in the lower superior vena cava. Nasogastric tube terminates 1.5 cm above the lois. The nasogastric tube terminates in the distal stomach. Lungs/Airways/Pleura: New interlobular septal thickening. Multiple pulmonary metastases again seen, some of which have decreased in the interval for reference, a left apical nodule is 9 mm (image 21, series 3), previously 11 mm. A left lower lobe superior segment lesion is 14 mm (image 48), decreased from 16 mm. Left basilar atelectasis. New heterogeneous consolidative opacity in the right lower lobe without volume loss is consistent with pneumonia (image 68, series 3). Marked interval increase of right pleural effusion, now moderate-large. New moderate left pleural effusion. Neck/Mediastinum/Nodes/Heart: The thyroid gland is normal in size. Multicompartment lymphadenopathy is stable or decreased from the prior study. For reference, a right retroclavicular lymph node is 14 mm (image 16, series 2). A prevascular node is 13 mm (image 41), previously 15 mm Right paratracheal lymphadenopathy is 26 x 22 mm, unchanged (image 41). Subcarinal adenopathy is 16 mm (image 54). Right hilar adenopathy is approximately 21 mm (image 55). The heart is normal in size with trace physiologic pericardial fluid and multivessel coronary artery disease. The thoracic aorta and main pulmonary trunk are normal in diameter. The esophagus is nondistended and normal in course. Upper abdomen: Hepatic lesions are not well evaluated on noncontrast study. There is interval increase in upper abdominal ascites. Bilateral adrenal gland thickening and nodularity is again seen. There is right retrocrural lymphadenopathy. For complete evaluation of abdominal findings please see concurrently obtained, separately reported CT abdomen pelvis 02/05/2024. Bones/Soft Tissues: A lytic lesion with soft tissue component in the manubrium has increased in size, now 26 mm (image 22, series 2). There is extensive diffuse subcutaneous edema, greater on the left, most likely related to positioning. Procedure Note Shania Aranda MD - 02/05/2024 FULL RESULT: Examination: CT CHEST WO CONTRAST on 02/05/2024 8:08 AM. Clinical History: Cholangiocarcinoma of biliary tract, NOS Indication: Dyspnea Comparison: CT chest abdomen pelvis 12/06/2023 Technique: CT of the chest is performed without intravenous contrast. Findings: Right infusion port catheter terminates in the lower superior vena cava.Nasogastric tube terminates 1.5 cm above the lois. The nasogastric tubeterminates in the distal stomach. Lungs/Airways/Pleura: New interlobular septal thickening. Multiple pulmonary metastases againseen, some of which have decreased in the interval for reference, a leftapical nodule is 9 mm (image 21, series 3), previously 11 mm. A left lowerlobe superior segment lesion is 14 mm (image 48), decreased from 16 mm.Left basilar atelectasis. New heterogeneous consolidative opacity in theright lower lobe without volume loss is consistent with pneumonia (image68, series 3). Marked interval increase of right pleural effusion, now moderate-large.New moderate left pleural effusion. Neck/Mediastinum/Nodes/Heart: The thyroid gland is normal in size. Multicompartment lymphadenopathy is stable or decreased from the priorstudy. For reference, a right retroclavicular lymph node is 14 mm (image16, series 2). A prevascular node is 13 mm (image 41), previously 15 mmRight paratracheal lymphadenopathy is 26 x 22 mm, unchanged (image 41).Subcarinal adenopathy is 16 mm (image 54). Right hilar adenopathy isapproximately 21 mm (image 55). The heart is normal in size with trace physiologic pericardial fluid andmultivessel coronary artery disease. The thoracic aorta and main pulmonarytrunk are normal in diameter. The esophagus is nondistended and normal in course. Upper abdomen: Hepatic lesions are not well evaluated on noncontrast study. There isinterval increase in upper abdominal ascites. Bilateral adrenal glandthickening and nodularity is again seen. There is right retrocrurallymphadenopathy. For complete evaluation of abdominal findings please seeconcurrently obtained, separately reported CT abdomen pelvis 02/05/2024. Bones/Soft Tissues: A lytic lesion with soft tissue component in the manubrium has increasedin size, now 26 mm (image 22, series 2). There is extensive diffusesubcutaneous edema, greater on the left, most likely related topositioning. IMPRESSION: 1. Development of right lower lobe pneumonia. 2. New pulmonary and subcutaneous soft tissue edema. Increased pleuraleffusions and ascites. 3. Multicompartment lymphadenopathy and multiple pulmonary metastases,stable or decreased. 4. Increased manubrial metastasis with soft tissue component. ACTIONABLE ITEMS/RECOMMENDATIONS*: None. Allie Craig ANTHROPOMETRIST [facility] CT ORDERABLES * CT Head without Contrast (02/05/2024 8:07 AM CDT) Only the most recent of2 resultswithin the time period is included. Anatomical Region Laterality Modality Head Computed Tomogra phy 02/05/2024 8:09 AM CDT Impressions 02/05/2024 8:47 AM CDT No acute intracranial abnormality. ACTIONABLE ITEMS/RECOMMENDATIONS*: None. I personally reviewed these image(s) along with the resident's/fellow's interpretations, certify that if a procedure was performed I was physically present, and agree with the final report. Narrative 02/05/2024 8:47 AM CDT FULL RESULT: Examination: CT HEAD WO CONTRAST on 02/05/2024 8:07 AM. CLINICAL HISTORY: Cholangiocarcinoma of biliary tract. INDICATION: Altered mental status COMPARISON: CT head 02/03/2024. TECHNIQUE: CT head without IV contrast was performed. FINDINGS: Intracranial: There is no acute hemorrhage or large vascular territory infarct. There is no mass effect or midline shift. The ventricles and extra-axial spaces are appropriate for age. Bone: There are no suspicious lytic or sclerotic calvarial and skull base lesions. Trace right mastoid fluid. Extracranial: The orbits are unremarkable. The paranasal sinuses are clear. Note is made of atherosclerotic calcifications of the bilateral carotid siphons and V4 segments of the vertebral arteries. Partially visualized endotracheal and enteric tubes. Procedure Note Frederick Santana MD - 02/05/2024 FULL RESULT: Examination: CT HEAD WO CONTRAST on 02/05/2024 8:07 AM. CLINICAL HISTORY: Cholangiocarcinoma of biliary tract. INDICATION: Altered mental status COMPARISON: CT head 02/03/2024. TECHNIQUE: CT head without IV contrast was performed. FINDINGS: Intracranial: There is no acute hemorrhage or large vascular territory infarct. There is no mass effect or midline shift. The ventricles and extra-axial spaces are appropriate for age. Bone: There are no suspicious lytic or sclerotic calvarial and skull baselesions. Trace right mastoid fluid. Extracranial: The orbits are unremarkable. The paranasal sinuses are clear. Note is made of atherosclerotic calcifications of the bilateral carotidsiphons and V4 segments of the vertebral arteries. Partially visualized endotracheal and enteric tubes. IMPRESSION: No acute intracranial abnormality. ACTIONABLE ITEMS/RECOMMENDATIONS*: None. I personally reviewed these image(s) along with the resident's/fellow'sinterpretations, certify that if a procedure was performed I wasphysically present, and agree with the final report. Allie Craig APRN IMG CT ORDERABLES * (ABNORMAL) Urinalysis Microscopic Exam (02/05/2024 5:54 AM CDT) Only the most recent of3 resultswithin the time period is included. Urine Mucous Not Seen Not Seen, Trace /HPF 02/05/2024 6:49 AM CDT [facility] Urine Bacteria Not Seen Not Seen /HPF 02/05/2024 6:49 AM CDT [facility] Urine Squamous Epithelial Cells Not Seen Not Seen, OCC, Rare /HPF 02/05/2024 6:49 AM CDT [facility] Urine WBC 15(H) <=2 /HPF 02/05/2024 6:49 AM CDT [facility] Urine RBC >182(H) <=2 /HPF 02/05/2024 6:49 AM CDT [facility] Urine Hyaline Casts 8(H) <=2 /LPF 02/05/2024 6:49 AM CDT [facility] Urine (Urine Rahman) Non-blood Collection / Unknown 02/05/2024 5:54 AM CDT 02/05/2024 6:02 AM CDT Kenney LUNA LAB BLOOD ORDERABLES [facility] Unless otherwise noted, all lab tests performed by: Division of Pathology and Laboratory Medicine [address] [place] [id number] * (ABNORMAL) Urinalysis w/Microscopic if Indicated (02/05/2024 5:54 AM CDT) Only the most recent of3 resultswithin the time period is included. Urine Appearance Hazy(A) Clear 03/10/20 24 6:16 AM CDT [facility] Urine Color Yellow Colorless, Straw, Yellow, Dark Yellow, Straw-Yellow 02/05/2024 6:16 AM CDT [facility] Urine Specific [place]ona 1.023 1.003 - 1.035 02/05/2024 6:16 AM CDT [facility] Urine pH 6.0 5.0 - 8.0 02/05/2024 6:16 AM CDT [facility] Urine Glucose 50(A) Negative mg/dL 02/05/2024 6:16 AM CDT [facility] Urine Ketones Trace(A) Negative mg/dL 02/05/2024 6:16 AM CDT [facility] Urine Blood Large(A) Negative 02/05/2024 6:16 AM CDT [facility] Urine Protein >=500(A) Negative mg/dL 02/05/2024 6:16 AM CDT [facility] Urine Bilirubin Negative Negative 6:16 AM CDT [facility] Urine Urobilinogen Negative Negative 02/05/2024 6:16 AM CDT [facility] Urine Nitrite Negative Negative 02/05/2024 6:16 AM CDT [facility] Urine Leukocyte Esterase Negative Negative 02/05/2024 6:16 AM CDT [facility] Urine (Urine Rahman) Non-blood Collection / Unknown 02/05/2024 5:54 AM CDT 02/05/2024 6:02 AM CDT Narrative [facility] - 02/05/2024 6:16 AM CDT Some reporting parameters within the Urinalysis test have changed due to the implementation of new instrumentation in the Main [place], allowing greater sensitivity of measurement. Urinalysis results reported by the [facility] using existing instrumentation, as well as Urinalysis testing performed manually or by back-up methodology at the main [place], will remain relatively unchanged. New reporting parameters and units will now be reported for all campuses. Kenney LUNA URINE ORDERABLES [facility] Unless otherwise noted, all lab tests performed by: Division of Pathology and Laboratory Medicine [address] [place] [id number] * Blood Culture - CVC (02/05/2024 1:04 AM [employer]) Only the most recent of7 resultswithin the time period is included. Pathologist [facility] Blood Culture No Growth. 02/10/2024 3:01 AM CDT [facility] Blood Venous blood specimen / Unknown CVC Line / Unknown 02/05/2024 1:04 AM [employer] 02/05/2024 1:10 AM [employer] Kenney LUNA MICROBIOLOGY - GENER AL ORDERABLES [facility] Unless otherwise noted, all lab tests performed by: Division of Pathology and Laboratory Medicine [address] [place] [address] [id number] * (ABNORMAL) Fractionated Bilirubin (02/05/2024 12:57 AM [employer]) [facility] Bilirubin Direct 0.4(H) 0.0 - 0.3 mg/dL 02/05/2024 1:32 AM [employer] [facility] Comment:Indocyanine Green (I CG) may cause falsely elevated bilirubin results. Total and direct bilirubin must not be measured from samples containing indocyanine green. Bilirubin Indirect 0.5 0.0 - 0.9 mg/dL 02/05/2024 1:32 AM [employer] [facility] Bilirubin Total 0.9 0.0 - 1.2 mg/dL 02/05/2024 1:32 AM [facility] Comment:Indocyanine Green (I CG) may cause falsely elevated bilirubin results. Total and direct bilirubin must not be measured from samples containing indocyanine green. False elevation of total bilirubin can be seen in patients with IgG concentrations above 28 g/L. Blood Venous blood specimen / Unknown CVC Line / Unknown 02/05/2024 12:57 AM [employer] 02/05/2024 1:03 AM [employer] Kenney LUNA LAB BLOOD ORDERABLES [facility] Unless otherwise noted, all lab tests performed by: Division of Pathology and Laboratory Medicine [address] [place] [address] [id number] * Alanine Aminotransferase (02/05/2024 12:57 AM [employer]) ALT 15 <=33 U/L 02/05/2024 1:3 2 AM [employer] [facility] Blood Venous blood specimen / Unknown CVC Line / Unknown 02/05/2024 12:57 AM [employer] 02/05/2024 1:03 AM [employer] Kenney LUNA LAB BLOOD ORDERABLES [facility] Unless otherwise noted, all lab tests performed by: Division of Pathology and Laboratory Medicine [address] [place] [address] [phone] * (ABNORMAL) Aspartate Aminotransferase (02/05/2024 12:57 AM [employer]) AST 35(H) <=32 U/L 02/05/2024 1:3 2 AM [employer] [facility] Blood Venous blood specimen / Unknown CVC Line / Unknown 02/05/2024 12:57 AM [employer] 02/05/2024 1:03 AM [employer] Kenney LUNA LAB BLOOD ORDERABLES Performing Organization Address City/[facility]/ZIP Co de Phone Number [facility] Unless otherwise noted, all lab tests performed by: Division of Pathology and Laboratory Medicine [address] [place] [address] [id number] * (ABNORMAL) Alkaline phosphatase (02/05/2024 12:57 AM [employer]) Alkaline Phosphatase 255(H) 35 - 104 U/L 02/05/2024 1:32 AM [employer] [facility] Blood Venous blood specimen / Unknown CVC Line / Unknown 02/05/2024 12:57 AM [employer] 02/05/2024 1:03 AM [employer] Kenney LUNA LAB BLOOD ORDERABLES [facility] Unless otherwise noted, all lab tests performed by: Division of Pathology and Laboratory Medicine [address] [place] [address] [id number] * Albumin Level (02/05/2024 12:57 AM [employer]) Albumin Level 3.5 3.5 - 5.2 gm/dL 02/05/2024 1:32 AM [employer] [facility] Blood Venous blood specimen / Unknown CVC Line / Unknown 02/05/2024 12:57 AM [employer] 02/05/2024 1:03 AM [employer] Kenney LUNA LAB BLOOD ORDERABLES [facility] Unless otherwise noted, all lab tests performed by: Division of Pathology and Laboratory Medicine [address] [place] [address] [id number] * DC ARTL CATHJ/CANNULJ MNTR/TRANSFUSION SPX PRQ, HC ARTERIAL LINE FOR BP MON, HC U/S GUID FOR VASC ACCESS (02/05/2024 12:44 AM [employer]) Narrative Clayton Lai MD - 02/05/2024 12:44 AM [employer] Clayton Lai MD 02/05/2024 12:50 AM Arterial line insertion Date/Time: 02/05/2024 12:44 AM Consent Obtained: emergent situation [place] Protocol completed: yes Provider Information: Performed by: Clayton Lai MD Authorized by: Clayton Lai MD Indication(s) for Procedure: Need for frequent arterial blood gas sampling, respiratory failure and need for invasive hemodynamic monitoring Allergies: -- Tank Inhibitors -- Constant cough Pre-Procedure: Patient Condition: patient is sedated. Is the patient on full dose anticoagulation: no. Anesthesia: Anesthesia: see MAR for details Sedation: Patient sedated: yes Sedatives: fentanyl and midazolam Procedure Description: Equipment: Sterile towels, sterile gown, sterile gloves Arrow Kit [id number] Pressure transducer Sterile dressing pack with Biopatch Procedure Details: Equipment and pressure transducer prepared and ready Patient positioned appropriately for procedure Maximal barriers applied (hat, mask, sterile gown, sterile gloves, sterile drape. Hand hygiene performed by all persons performing/assisting with insertion. Location: right radial Preparation: Patient was prepped and draped in the usual sterile fashion. The area was prepped with chlorhexidine. Ultrasound guidance: yes Sterile ultrasound techniques: sterile gel and sterile probe covers were used The artery was accessed on attempt number 1 with return of red pulsatile blood. Seldinger technique used?: yes Transducer: waveform confirmed Guide wire removed?: yes Post-Procedure: Post Procedure: line sutured, sterile dressing applied and biopatch applied Neurovascular exam: normal Patient tolerance: patient tolerated the procedure well Specimen(s) removed: no specimen collected Estimated Blood Loss: none Complications: no immediate complications Disposition: remain in ICU bed Clayton Lai MD PROCEDURE/MINOR SURG ICAL ORDERABLES * Pneumocystis Quant PCR, BAL (02/05/2024 12:19 AM [employer]) P. jiroveci BAL-Viracor Not Detected Not Detected copies/mL 02/07/2024 8:31 AM CDT [facility]) Comment: Assay Range: 84 copies/mL to 1.00E+08 copies/mL The limit of quantitation (LOQ) is 84 copies/mL. Pneumocystis jiroveci DNA detected below the LOQ will be reported as Detected:<84 copies/mL. This test was developed and its performance characteristics determined by [facility]. It has not been cleared or approved by the U.S. Food and Drug Administration. Results should be used in conjunction with clinical findings, and should not form the sole basis for a diagnosis or treatment decision. Testing Performed At: [facility] [employer] [address] [place] [address] [employer] Liner Assembler: Marco Antonio Robbins, PhD [facility] ([facility]) CLIA # [id number] FLAG Interpretation: A = Abnormal, H = High, L = Low Lavage (Lung, Left) 02/05/2024 12:19 AM [employer] 02/05/2024 1:14 AM [employer] Kenney LUNA MICROBIOLOGY - GENER AL ORDERABLES [facility] ([facility]) * Legionella Culture (02/05/2024 12:18 AM [employer]) Legionella Culture No Legionella species isolated. 02/12/2024 10:24 AM CDT [facility] Lavage (Trachea) 02/05/2024 12:18 AM [employer] 02/05/2024 1:14 AM [employer] Kenney LUNA MICROBIOLOGY - GENER AL ORDERABLES [facility] Unless otherwise noted, all lab tests performed by: Division of Pathology and Laboratory Medicine [address] [place] [address] [id number] * INTUBATION (02/04/2024 11:48 PM [employer]) Narrative Mikaela Bates MD - 02/04/2024 11:48 PM [employer] Mikaela Bates MD 02/05/2024 12:32 AM 5. Floor Intubation Only Date/Time: 02/04/2024 11:48 PM Performed by: Mikaela Bates MD Authorized by: Mikaela Bates MD Reason for Intubation: respiratory failure and airway protection Medications Administered etomidate (AMIDATE) IV 2 mg/mL - intravenous 6 mg - 02/04/2024 11:48:00 PM succinylcholine (ANECTINE) injection 200 mg/10 mL - intravenous 100 mg - 02/04/2024 11:48:00 PM Med File Time: 02/04/2024 11:48 PM Performed by: Anesthesiologist Urgency: Emergent Mask Difficulty Assessment: Mask ventilation not attempted Technique: Direct laryngoscopy Difficult Intubation: Easy Tube Type: cuffed Tube Size: 7.5 Laryngoscope: C-Mac Blade Size: 3 Location: oral Grade View: 1 Insertion Attempts: 1 Placement Verification: Secured At: 22 Secured By: Clear tape Measured From: lips Emergent Intubation Reason: Airway protection Patient Tolerance: Patient tolerated the procedure ETT Comments Anesthesia Consent: Emergency intubation performed, informed consent not available due to patient's condition. Mikaela Bates MD DC ANESTHESIA * X-ray Chest 1 View Portable (02/04/2024 11:29 PM [employer]) Only the most recent of3 resultswithin the time period is included. Anatomical Region Laterality Modality Chest Digital Radiogra phy 02/05/2024 9:39 AM CDT Impressions 02/05/2024 9:40 AM CDT Increased left lower lobe opacity could reflect atelectasis or aspiration. Right lower lobe pneumonia and right pleural effusion are unchanged. ACTIONABLE ITEMS/RECOMMENDATIONS*: None. Narrative 02/05/2024 9:40 AM CDT FULL RESULT: Examination: XR CHEST 1 VW PORTABLE on 02/04/2024 11:29 PM. Clinical History: Cholangiocarcinoma of biliary tract, NOS Indication: Shortness of breath Comparison: Chest portable 02/04/2024 at 1255 hours Technique: Frontal radiograph of the chest Findings: Support Apparatus: Stable position of visible support apparatus. Lungs/Pleura/Mediastinum: Depth of lung inflation is similar to the previous study. There is increased opacity in the left lung base. Right lower lobe opacity is unchanged. Underlying pulmonary metastases. Moderate partially loculated right pleural effusion is unchanged. No pneumothorax. Unchanged cardiomediastinal silhouette. Procedure Note Shania Aranda MD - 02/05/2024 FULL RESULT: Examination: XR CHEST 1 VW PORTABLE on 02/04/2024 11:29 PM. Clinical History: Cholangiocarcinoma of biliary tract, NOS Indication: Shortness of breath Comparison: Chest portable 02/04/2024 at 1255 hours Technique: Frontal radiograph of the chest Findings: Support Apparatus: Stable position of visible support apparatus. Lungs/Pleura/Mediastinum: Depth of lung inflation is similar to theprevious study. There is increased opacity in the left lung base. Rightlower lobe opacity is unchanged. Underlying pulmonary metastases. Moderatepartially loculated right pleural effusion is unchanged. No pneumothorax.Unchanged cardiomediastinal silhouette. IMPRESSION: Increased left lower lobe opacity could reflect atelectasis or aspiration.Right lower lobe pneumonia and right pleural effusion are unchanged. ACTIONABLE ITEMS/RECOMMENDATIONS*: None. Kayla Iglesias APRN IMG DIAGNOSTIC IM AGING ORDERABLES * US Liver (02/03/2024 1:51 PM [employer]) Anatomical Region Laterality Modality Abdomen Ultrasound 02/03/2024 1:56 PM [employer] Impressions 02/03/2024 2:08 PM [employer] 1. Morphology consistent with the chronic liver disease, likely cirrhotic. 2. Multiple hepatic lesion seen on comparison CT study are not evident on sonography. 3. Mild central biliary reservoir. 4. Cholelithiasis without change of cholecystitis. 5. Echogenic right kidney consistent with medical renal disease but without hydronephrosis. 6. Small volume ascites, right upper quadrant. 7. Right pleural effusion. ACTIONABLE ITEMS/RECOMMENDATIONS*: None. Narrative 02/03/2024 2:08 PM [employer] Examination: US LIVER on 02/03/2024 1:51 PM. Clinical History: Cholangiocarcinoma of biliary tract, NOS. Indication: Increase Liver Function Tests/Obstruction. Comparison: CT study of the abdomen 12/06/2023 Findings: The liver has nonuniform coarse echogenicity. The morphology is consistent with a chronic liver disease with some hypertrophy of the left liver. The multiple hepatic lesions as seen on the comparison CT study are not as evident on sonography. Mild central biliary reservoir is seen. The portal and hepatic venous flow is in the normal direction. Gallbladder sludge is present along with a 5 mm calculus. No gallbladder wall thickening or pericholecystic fluid is present. The common bile duct is 5 mm. A portion of the proximal body of the pancreas appears normal. The rest of the pancreas is not seen. The 10 cm long right kidney has nonspecific increased echogenicity without hydronephrosis and contains a cyst. A small volume of the ascites present in right upper quadrant of the abdomen. A right pleural effusion is seen. Procedure Note Andrez Coyle MD - 02/03/2024 Examination: US LIVER on 02/03/2024 1:51 PM. Clinical History: Cholangiocarcinoma of biliary tract, NOS. Indication: Increase Liver Function Tests/Obstruction. Comparison: CT study of the abdomen 12/06/2023 Findings: The liver has nonuniform coarse echogenicity. The morphology is consistent with a chronic liver disease with somehypertrophy of the left liver. The multiple hepatic lesions as seen on the comparison CT study are not asevident on sonography. Mild central biliary reservoir is seen. The portal and hepatic venous flow is in the normal direction. Gallbladder sludge is present along with a 5 mm calculus. No gallbladder wall thickening or pericholecystic fluid is present. Thecommon bile duct is 5 mm. A portion of the proximal body of the pancreas appears normal. The rest ofthe pancreas is not seen. The 10 cm long right kidney has nonspecific increased echogenicity withouthydronephrosis and contains a cyst. A small volume of the ascites present in right upper quadrant of theabdomen. A right pleural effusion is seen. IMPRESSION: 1. Morphology consistent with the chronic liver disease, likelycirrhotic. 2. Multiple hepatic lesion seen on comparison CT study are not evident onsonography. 3. Mild central biliary reservoir. 4. Cholelithiasis without change of cholecystitis. 5. Echogenic right kidney consistent with medical renal disease butwithout hydronephrosis. 6. Small volume ascites, right upper quadrant. 7. Right pleural effusion. ACTIONABLE ITEMS/RECOMMENDATIONS*: None. Bob Avendaño DO [facility] US ORDERABLES * (ABNORMAL) Sed Rate (02/03/2024 9:16 AM [employer]) Only the most recent of2 resultswithin the time period is included. Sedimentation Rate 59(H) <=30 mm/hr 2023 10:00 AM [employer] [facility] Blood Peripheral blood specimen / Unknown Port / Unknown 02/03/2024 9:16 AM [employer] 02/03/2024 9:18 AM [employer] Shad LUNA LAB BLOOD ORDERABLES [facility] Unless otherwise noted, all lab tests performed by: Division of Pathology and Laboratory Medicine [address] [place] [address] [id number] * (ABNORMAL) Procalcitonin (02/03/2024 9:10 AM [employer]) Only the most recent of2 resultswithin the time period is included. Procalcitonin 9.30(H) <=0.08 ng/mL 02/03/2024 9:59 AM [employer] [facility] Blood Peripheral blood specimen / Unknown Port / Unknown 02/03/2024 9:10 AM [employer] 02/03/2024 9:18 AM [employer] Narrative [facility] - 02/03/2024 9:59 AM [employer] Procalcitonin > 2.00 ng/mL: Procalcitonin levels above 2.00 ng/mL are highly suggestive of a high risk for systematic bacterial infection/ severe sepsis and/or septic shock. Procalcitonin < 0.50 ng/mL: Procalcitonin levels below 0.50 ng/mL are at low risk for progression to severe sepsis and/ or septic shock. Procalcitonin (ProCT) between 0.15 and 2.0 ng/mL do not exclude infection, because localized infections (without systemic signs) may be associated with such low levels. Results greater than 400 ng/mL may not be reliable due to the matrix effect with extended dilution as it exceeds the production assembly operator's recommended limit. Caution should be exercised when interpreting such values and done in conjunction with clinical context. Shad LUNA LAB BLOOD ORDERABLES Performing Organization Address [facility] Co de Phone Number [facility] Unless otherwise noted, all lab tests performed by: Division of Pathology and Laboratory Medicine [address] [place] [address] [phone] * CRP (02/03/2024 9:10 AM [employer]) Only the most recent of2 resultswithin the time period is included. Pathologist [facility] CRP (C Reactive Protein) 165.92 mg/L 02/03/2024 10:11 AM [facility] Blood Peripheral blood specimen / Unknown Port / Unknown 02/03/2024 9:10 AM [employer] 02/03/2024 9:18 AM [employer] Narrative [facility] - 02/03/2024 10:11 AM [employer] Adult Reference ranges for HS CRP assay are as follows: Reference ranges when used to assess cardiac risk: <1.00 mg/L Low cardiovascular risk 1.00-3.00 mg/L Average cardiovascular risk >3.00 mg/L High cardiovascular risk Reference ranges when used to assess inflammatory responses: Less than or equal to 10.00 mg/L. Shad LUNA LAB BLOOD ORDERABLES Performing Organization Address City/[facility]/ZIP Co de Phone Number [facility] Unless otherwise noted, all lab tests performed by: Division of Pathology and Laboratory Medicine [address] [place] [address] [phone] * Ammonia Level (02/03/2024 9:10 AM [employer]) Ammonia Level 16 11 - 51 mcmol/L 02/03/2024 9:39 AM [employer] [facility] Blood Peripheral blood specimen / Unknown Port / Unknown 02/03/2024 9:10 AM [employer] 02/03/2024 9:19 AM [employer] Bob Avendaño DO LAB BLOOD ORDERABLES [facility] Unless otherwise noted, all lab tests performed by: Division of Pathology and Laboratory Medicine [address] [place] [address] * (ABNORMAL) Electrolyte Panel (02/03/2024 9:10 AM [employer]) Only the most recent of2 resultswithin the time period is included. Pathologist [facility] Sodium Level 138 136 - 145 mmol/L 02/03/2024 9:53 AM [employer] [facility] Potassium Level 3.7 3.4 - 4.5 mmol/L 02/03/2024 9:53 AM [employer] [facility] Chloride 109(H) 98 - 107 mmol/L 02/03/2024 9:53 AM [facility] CO2 15(L) 22 - 29 mmol/L 02/03/2024 9:53 AM [employer] [facility] Anion Gap 14 4 - 14 mmol/L 02/03/2024 9:53 AM [employer] [facility] Blood Peripheral blood specimen / Unknown Port / Unknown 02/03/2024 9:10 AM [employer] 02/03/2024 9:18 AM [employer] Shad LUNA LAB BLOOD ORDERABLES [facility] Unless otherwise noted, all lab tests performed by: Division of Pathology and Laboratory Medicine [address] [place] [address] [phone] * Respiratory Multiplex PCR Panel, Nasopharyngeal Swab (02/03/2024 8:46 AM [employer]) Adenovirus Not Detected Not Detected 02/03/2024 10:18 AM [facility] Coronavirus 229E Not Detected Not Detected 02/03/2024 10:18 AM [facility] Coronavirus HKU1 Not Detected Not Detected 02/03/2024 10:18 AM [facility] Coronavirus NL63 Not Detected Not Detected 02/03/2024 10:18 AM [facility] Coronavirus OC43 Not Detected Not Detected 02/03/2024 10:18 AM [facility] COVID-19 (SARS-CoV-2) Not Detected Not Detected 02/03/2024 10:18 AM [facility] Human Metapneumovirus Not Detected Not Detected 02/03/2024 10:18 AM [facility] Human Rhinovirus/Enterov irus Not Detected Not Detected 02/03/2024 10:18 AM [facility] Influenza A Not Detected Not Detected 02/03/2024 10:18 AM [facility] Influenza A H1 Not Detected Not Detected 02/03/2024 10:18 AM [facility] Influenza A H1 2009 Not Detected Not Detected 02/03/2024 10:18 AM [facility] Influenza A H3 Not Detected Not Detected 02/03/2024 10:18 AM [facility] Influenza B Not Detected Not Detected 02/03/2024 10:18 AM [facility] Parainfluenza Virus 1 Not Detected Not Detected 02/03/2024 10:18 AM [facility] Parainfluenza Virus 2 Not Detected Not Detected 02/03/2024 10:18 AM [facility] Parainfluenza Virus 3 Not Detected Not Detected 02/03/2024 10:18 AM [facility] Parainfluenza Virus 4 Not Detected Not Detected 02/03/2024 10:18 AM [facility] Respiratory Syncytial Virus Not Detected Not Detected 02/03/2024 10:18 AM [facility] Bordetella parapertussis Not Detected Not Detected 02/03/2024 10:18 AM [facility] Bordetella pertussis Not Detected Not Detected 02/03/2024 10:18 AM [facility] Chlamydophila pneumoniae Not Detected Not Detected 02/03/2024 10:18 AM [facility] Mycoplasma pneumoniae Not Detected Not Detected 02/03/2024 10:18 AM [facility] Swab Nasopharyngeal structure / Unknown Non-blood Collection / Unknown 02/03/2024 8:46 AM [employer] 02/03/2024 8:51 AM [employer] [facility] - 02/03/2024 10:18 AM [facility] The assay is a qualitative multiplex PCR assay to aid in the diagnosis of respiratory pathogens through simultaneous qualitative detection and identification of multiple pathogens directly from nasopharyngeal swabs ([employer]QUOR RECTIFIER) from individuals with respiratory symptoms. Testing is performed using the [employer] Respiratory Panel 2.1 (RP2.1) on the [employer] System. The following organisms are identified using the [employer] RP 2.1 Panel: Adenovirus, Human Coronavirus (229E, HKU1, NL63, and OC43), Severe Acute Respiratory Syndrome Coronavirus 2 (SARS-CoV-2), Human Metapneumovirus, Human Rhinovirus/Enterovirus, Influenza A, including subtypes (H1, H3 and H1-2009), Influenza B, Parainfluenza Virus (1, 2, 3, and 4), Respiratory Syncytial Virus, Bordetella parapertussis, Bordetella pertussis, Chlamydia pneumoniae, and Mycoplasma pneumoniae A result of Not Detected" does not exclude the possibility of the presence of one or more of the pathogens at or below the detection limits of this assay nor does exclude the possibility of pathogens not detected by this panel. Non-infectious causes of respiratory symptoms should also be considered in such cases. Internal controls are used to monitor all stages of the testing process including amplification inhibition. If inhibition is detected, testing is repeated and if inhibition is confirmed the specimen is resulted as "Invalid". When an "Invalid" result occurs, it is recommended to wait 3 days before submitting a new specimen for testing if clinically indicated. This is an FDA-approved assay and its performance characteristics were verified by the microbiology laboratory at the [facility] (CLIA Accreditation # [id number] and CAP Accreditation # [id number]). Results must be interpreted within the context of all relevant clinical and laboratory findings. Assay should not be used for monitoring response to therapy. Shad LUNA [facility] ORDERABLES [facility] Unless otherwise noted, all lab tests performed by: Division of Pathology and Laboratory Medicine [address] [place] [address] * US Leg Venous Doppler Bilateral (02/02/2024 7:23 PM [employer]) Only the most recent of2 resultswithin the time period is included. Anatomical Region Laterality Modality Leg, Extremity Ultrasound 02/02/2024 7:27 PM [employer] Impressions 02/02/2024 8:14 PM [employer] 1. No deep venous thrombosis in the LEFT lower extremity. 2. Limited assessment of the RIGHT lower extremity due to pain, edema, and patient positioning. With consideration of this limitation, no deep vein thrombosis is identified in the RIGHT lower extremity. 3. Limited assessment of the BILATERAL distal posterior tibial, peroneal, and anterior tibial veins due to edema. ACTIONABLE ITEMS/RECOMMENDATIONS*: None. I personally reviewed these image(s) along with the resident's/fellow's interpretations, certify that if a procedure was performed I was physically present, and agree with the final report. Narrative 02/02/2024 8:14 PM [employer] Examination: US LEG VENOUS DOPPLER BILATERAL on 02/02/2024 7:23 PM. Clinical History: 63-year-old patient with history of cholangiocarcinoma. Indication: Edema, evaluation for deep vein thrombosis Comparison: None available. TECHNIQUE: Sonographic evaluation of the deep veins of the bilateral lower extremities is performed assessing grayscale appearance, color and spectral Doppler flow and compressibility. FINDINGS: Right leg: Limited assessment due to pain, edema, and patient positioning. The visualized portions of the right common femoral, femoral and proximal popliteal veins demonstrate color flow and compressibility. Limited view of the distal posterior tibial, peroneal, and anterior tibial veins due to edema. Left leg: The left common femoral, femoral and popliteal veins demonstrate color flow and compressibility. Limited view of the distal posterior tibial, peroneal, and anterior tibial veins due to edema. Procedure Note Eulogio Granados MD - 02/02/2024 Examination: US LEG VENOUS DOPPLER BILATERAL on 02/02/2024 7:23 PM. Clinical History: 63-year-old patient with history ofcholangiocarcinoma. Indication: Edema, evaluation for deep vein thrombosis Comparison: None available. TECHNIQUE: Sonographic evaluation of the deep veins of the bilaterallower extremities is performed assessing grayscale appearance, color andspectral Doppler flow and compressibility. FINDINGS: Right leg: Limited assessment due to pain, edema, and patient positioning.The visualized portions of the right common femoral, femoral and proximalpopliteal veins demonstrate color flow and compressibility. Limited viewof the distal posterior tibial, peroneal, and anterior tibial veins due toedema. Left leg: The left common femoral, femoral and popliteal veins demonstratecolor flow and compressibility. Limited view of the distal posteriortibial, peroneal, and anterior tibial veins due to edema. IMPRESSION: 1. No deep venous thrombosis in the LEFT lower extremity. 2. Limited assessment of the RIGHT lower extremity due to pain, edema,and patient positioning. With consideration of this limitation, no deepvein thrombosis is identified in the RIGHT lower extremity. 3. Limited assessment of the BILATERAL distal posterior tibial, peroneal,and anterior tibial veins due to edema. ACTIONABLE ITEMS/RECOMMENDATIONS*: None. I personally reviewed these image(s) along with the resident's/fellow'sinterpretations, certify that if a procedure was performed I wasphysically present, and agree with the final report. [facility] US ORDERABLES * X-ray Pelvis 1 or 2 Views (01/30/2024 7:44 PM [employer]) Only the most recent of2 resultswithin the time period is included. Anatomical Region Laterality Modality Pelvis Digital Radiogra phy 01/30/2024 8:03 PM [employer] Impressions 01/30/2024 8:08 PM [employer] Impression: Postoperative examination consistent with a Girdlestone procedure. ACTIONABLE ITEMS/RECOMMENDATIONS*: None. Narrative 01/30/2024 8:08 PM [employer] FULL RESULT: Examination: XR PELVIS 1 OR 2 VW, January 30, 2024. Clinical History: Cholangiocarcinoma of biliary tract, NOS Indication: Status Post Surgery Comparison: January 25, 2024 Technique: Single AP view of the pelvis on 2 images Findings: Since the prior examination, the right femoral head and part of the femoral neck have been removed. Skin taya are present. Some air in the soft tissues is an expected surgical finding. No new abnormality. Procedure Note Елена Scherer MD - 01/30/2024 FULL RESULT: Examination: XR PELVIS 1 OR 2 VW, January 30, 2024. Clinical History: Cholangiocarcinoma of biliary tract, NOS Indication: Status Post Surgery Comparison: January 25, 2024 Technique: Single AP view of the pelvis on 2 images Findings: Since the prior examination, the right femoral head and part ofthe femoral neck have been removed. Skin taya are present. Some air inthe soft tissues is an expected surgical finding. No new abnormality. IMPRESSION: Impression: Postoperative examination consistent with a Girdlestoneprocedure. ACTIONABLE ITEMS/RECOMMENDATIONS*: None. Garrett [facility] ORDERABLES * (ABNORMAL) ABG+ (ABG, Na, K, Cl, Glu, Hgb, Hct, Lactate, Ion Ca) (01/30/2024 5:58 PM [employer]) Sodium Arterial 136 136 - 146 mmol/L 01/30/2024 6:02 PM [facility] Potassium Arterial 4.0 3.4 - 4.5 mmol/L 01/30/2024 6:02 PM [facility] Chloride Arterial 109(H) 98 - 106 mmol/L 01/30/2024 6:02 PM [facility] Glucose Arterial 111(H) 70 - 105 mg/dL 01/30/2024 6:02 PM [facility] Hgb Art 10.4(L) 12.0 - 16.0 g/dL 01/30/2024 6:02 PM [facility] Hematocrit Arterial 32(L) 37 - 48 % 01/30/2024 6:02 PM [facility] Lactate Arterial 0.8 0.4 - 0.8 mmol/L 01/30/2024 6:02 PM [facility] Calcium Ionized Arterial 1.04(L) 1.15 - 1.29 mmol/L 01/30/2024 6:02 PM [facility] pH Arterial 7.32(L) 7.35 - 7.45 01/30/2024 6:02 PM [facility] P CO2 Arterial 38.2 32.0 - 45.0 mmHg 01/30/2024 6:02 PM [facility] P O2 Arterial 88 83 - 108 mmHg 01/30/2024 6:02 PM [facility] Bicarbonate Arterial 20(L) 21 - 28 mmol/L 01/30/2024 6:02 PM [facility] WB Anion Gap 7 7 - 16 mmol/L 01/30/2024 6:02 PM [facility] Base Excess Arterial -6(L) -2 - 3 mmol/L 01/30/2024 6:02 PM [facility] Oxygen Saturation Arterial 98 95 - 99 % 01/30/2024 6:02 PM [facility] Oxygen FLOW Rate/ FiO2 01/30/2024 6:02 PM [facility] O2 Therapy 01/30/2024 6:02 PM [facility] Art Juvenal Test Not Applicable (Arterial Line Draw) 01/30/2024 6:02 PM [facility] Blood Arterial blood specimen / Unknown Arterial Line / Unknown 01/30/2024 5:58 PM [facility] 01/30/2024 6:00 PM [facility] - 01/30/2024 6:02 PM [facility] The ABL90 Flex Plus analyzer is an in vitro diagnostic portable, automated analyzer that measures pH, blood gas, electrolytes, hemoglobin, glucose and lactate in whole blood. This analyzer uses the methodologies noted to perform quantitative measurement of the parameters listed when tested. 1) pH, pCO2, K+, Na+, Ca2+ and Cl- are measured by potentiometry. The potential of an electrode chain is measured by a voltmeter, and related to the concentration of the sample. 2) Glucose and Lactate are measured by amperometry. The magnitude of an electrical current that flows through an electrode chain is proportional to the concentration of the substance that is oxidized or reduced at a electrode in the chain. 3) pO2 is measured by optical pO2. The optical system for pO2 is based on the ability of O2 to reduce the intensity and time constant of the phosphorescence from a phosphorescent dye that is in contact with the sample. 4) Hemoglobin and sO2 are measured by spectrophotometry. Light passes through a cuvette that contains a hemolyzed blood sample. The absorption spectrum is used to calculate oximetry parameters. 5) Hematocrit is derive from the total hemoglobin multiplied by the standard value 0.0301. 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 02/06/2024 10:25 AM CDT [facility] Gross Description A: Femur, right, right femoral head or 33: It consists of a 4.3 x 4.2 x 3.4 cm femoral head with a smooth articular surface with no areas of eburnation identified and a ragged resection surface, possibly correlating with fracture site, measuring 3.8 x 3.5 cm. The specimen is sectioned to reveal a 3.0 x 2.0 x 1.4 cm pale-gonzalez, soft, ill-defined mass at the ragged resection surface which involves the femoral head, but does not extend into the articular surface. The mass appears to have a grossly 40% degenerative cut surface. The remaining cut surfaces are gonzalez, trabeculated, and unremarkable. SECTION CODE: A1-A4, 1 personal financial representative cross-section following decalcification; A5, personal financial representative soft mass at fracture site. AK B: Femur, right, right femoral neck curettage or 33: It consists of a 5.3 x 4.6 x 2.3 cm aggregate of gonzalez, trabeculated fragments of bone admixed with pale-gonzalez, soft tissue fragments possibly consistent with femoral neck mass. SECTION CODE: B1-B3, bone with possible involvement by mass following decalcification; B4, personal financial representative possible soft tissue mass. AK 02/06/2024 10:25 AM CDT [facility] Biomarker Block(s) Metastatic Tumor: B4 Normal: A3 02/06/2024 10:25 AM CDT [facility] Disclaimer "Some tests reported here may have been developed and performance characteristics determined by [facility] Pathology and Laboratory Medicine. These tests have not been specifically cleared or approved by the U.S. Food and Drug Administration. If applicable, controls were reviewed and showed appropriate reactivity." 02/06/2024 10:25 AM CDT [facility] Tissue (Femur, Right) 01/30/2024 5:26 PM [employer] 01/31/2024 6:32 AM [employer] Tissue specimen (specimen) (Femur, Right) 01/30/2024 5:27 PM [employer] 01/31/2024 6:32 AM [employer] Hank Giles MD LAB PATHOLO GY ORDERABLES [address] [address], * MRSA Screening Culture (01/29/2024 5:12 PM [employer]) MRSA Screening Culture No Methicillin-Resist ant Staphylococcus aureus isolated. 02/01/2024 9:06 AM [employer] [facility] Swab (Nares, Left) Non-blood Collection / Unknown 01/29/2024 5:12 PM [employer] 01/29/2024 5:35 PM [employer] Narrative [facility] - 02/01/2024 9:06 AM [employer] Testing is performed using PBP2a antigen detection and cefoxitin screen on isolated S. aureus colonies. This methodology may not detect uncommon mechanisms of methicillin resistance in S. aureus. Mitra Macdonald MD MICROBIOLOGY - GENERAL ORDERABLES Performing Organization Address [facility] Co de Phone Number [facility] Unless otherwise noted, all lab tests performed by: Division of Pathology and Laboratory Medicine [address] [place] [id number] * Vitamin D 25OH (01/25/2024 10:07 AM [employer]) Pathologist [facility] Vitamin D 25 OH 31 30 - 100 ng/mL 01/25/2024 11:13 AM [employer] [facility] Blood Peripheral blood specimen / Unknown Port / Unknown 01/25/2024 10:07 AM [employer] 01/25/2024 10:24 AM [employer] Narrative [facility] - 01/25/2024 11:13 AM [employer] Reference Range: Deficiency: <=20 ng/mL Insufficiency: 21-29 ng/mL Sufficiency: 30-100 ng/mL Potential toxicity: >100 ng/mL Mitra Macdonald MD LAB BLOOD ORD ERABLES Performing Organization Address [facility] Co de Phone Number [facility] Unless otherwise noted, all lab tests performed by: Division of Pathology and Laboratory Medicine [address] [place] [id number] * (ABNORMAL) Hemoglobin A1c (01/25/2024 10:07 AM [employer]) Pathologist [facility] Hemoglobin A1c 6.1(H) 4.3 - 5.6 % 01/25/2024 10:42 AM [employer] [facility] Blood Peripheral blood specimen / Unknown Port / Unknown 01/25/2024 10:07 AM [employer] 01/25/2024 10:23 AM [employer] Narrative [facility] - 01/25/2024 10:42 AM [employer] HbA1c values >=6.5% are diagnostic of diabetes mellitus. Diagnosis should be confirmed by repeat testing. Therapeutic Action suggested: >8.0% HbA1c; Goal of therapy: <7.0% HbA1c Garrett LUNA LAB BLOOD ORDERAB LES [facility] Unless otherwise noted, all lab tests performed by: Division of Pathology and Laboratory Medicine [address] [place] [address] * US RENAL (01/25/2024 9:51 AM [employer]) Only the most recent of2 resultswithin the time period is included. Anatomical Region Laterality Modality Abdomen Ultrasound 01/25/2024 10:0 7 AM [employer] Impressions 01/25/2024 10:12 AM [employer] No hydronephrosis. Narrative 01/25/2024 10:12 AM [employer] Examination: US RENAL, 01/25/2024 9:51 AM Clinical History: Cholangiocarcinoma of biliary tract, NOS Comparison: 01/04/2024 Technique: Grayscale and color Doppler ultrasound of the kidneys and bladder. Findings: Transverse and longitudinal images of the kidneys were obtained. The right kidney measures 9.6 cm in maximum size. Normal echogenicity. There are a few renal cysts, the largest is located in the upper pole, measuring 1.7 cm. There is no evidence of nephrolithiasis, hydronephrosis, or suspicious masses. The left kidney measures 10.2 cm in maximum size. Normal echogenicity. There is a 2.3 cm simple cyst in the upper pole. There is no evidence of nephrolithiasis, hydronephrosis, or suspicious masses. The bladder is decompressed with Rahman catheter. Procedure Note Argelia Cheek MD - 01/25/2024 Examination: US RENAL, 01/25/2024 9:51 AM Clinical History: Cholangiocarcinoma of biliary tract, NOS Comparison: 01/04/2024 Technique: Grayscale and color Doppler ultrasound of the kidneys andbladder. Findings: Transverse and longitudinal images of the kidneys were obtained. The right kidney measures 9.6 cm in maximum size. Normal echogenicity.There are a few renal cysts, the largest is located in the upper pole,measuring 1.7 cm. There is no evidence of nephrolithiasis, hydronephrosis,or suspicious masses. The left kidney measures 10.2 cm in maximum size. Normal echogenicity.There is a 2.3 cm simple cyst in the upper pole. There is no evidence ofnephrolithiasis, hydronephrosis, or suspicious masses. The bladder is decompressed with Rahman catheter. IMPRESSION: No hydronephrosis. Xavier Jiménez ANTHROPOMETRIST IMG US ORDERABLES * XR Femur 2 Views Right (01/25/2024 7:51 AM [employer]) Only the most recent of2 resultswithin the time period is included. Anatomical Region Laterality Modality Thigh, Extremity Digital Radiogr aphy 01/25/2024 8:00 AM [employer] Impressions 01/25/2024 8:08 AM [employer] Stable acute displaced pathologic transcervical fracture of right femur superimposed on a lytic metastasis, seen in prior abdominal/pelvic CT of 12/06/2023 (series 307, image 244). ACTIONABLE ITEMS/RECOMMENDATIONS: None. Narrative 01/25/2024 8:08 AM [employer] FULL RESULT: Examination: XR Pelvis, 1 View, and XR Right Femur, 2 Views, 01/25/2024 7:51 AM. Clinical History: Cholangiocarcinoma. Indication: Femoral neck fracture. Comparison: Portable AP and lateral right hip, 01/24/2024. Technique: AP pelvis, and AP and lateral right femur, 01/25/2024. Findings: A superiorly displaced the basicapital transcervical pathologic fracture of the right femur superimposed on lytic metastasis is again seen. No callus is noted at the fracture site. The left hip is intact. Degenerative changes are present in the lower lumbar spine. Procedure Note Jose Eduardo Cool MD - 01/25/2024 FULL RESULT: Examination: XR Pelvis, 1 View, and XR Right Femur, 2 Views, 47:51 AM. Clinical History: Cholangiocarcinoma. Indication: Femoral neck fracture. Comparison: Portable AP and lateral right hip, 01/24/2024. Technique: AP pelvis, and AP and lateral right femur, 01/25/2024. Findings: A superiorly displaced the basicapital transcervical pathologic fractureof the right femur superimposed on lytic metastasis is again seen. Nocallus is noted at the fracture site. The left hip is intact. Degenerative changes are present in the lower lumbar spine. IMPRESSION: Stable acute displaced pathologic transcervical fracture of right femursuperimposed on a lytic metastasis, seen in prior abdominal/pelvic CT of12/06/2023 (series 307, image 244). ACTIONABLE ITEMS/RECOMMENDATIONS: None. Rakesh Perdomo Jr., MD [facility] DIAGNOSTIC IM AGING ORDERABLES * X-ray Hip 1 View Right (01/24/2024 9:19 PM [employer]) Anatomical Region Laterality Modality Hip, Extremity Digital Radiogra phy 01/24/2024 9:32 PM [employer] Impressions 01/24/2024 9:34 PM [employer] Subcapital femoral neck fracture. ACTIONABLE ITEMS/RECOMMENDATIONS*: None. Narrative 01/24/2024 9:34 PM [employer] FULL RESULT: Examination: XR HIP 1 VW RIGHT, January 24, 2024. Clinical History: Pathologic fracture of neck of femur Cholangiocarcinoma of biliary tract, NOS Breakthrough cancer pain Breakthrough cancer pain Anemia in malignant neoplastic disease Edema of lower extremity Indication: fracture Comparison: Right femur radiographs of December 20, 2023 Technique: Single AP view of the hip on 2 images.. Findings: There is a subcapital fracture of the femoral neck. The femoral neck and shaft have shifted in a proximal direction by approximately 2/3rds the width of the femoral head. The presence of a previous lytic lesion suggests that this probably is a pathologic fracture due to tumor. No other focal abnormalities are noted. Procedure Note Елена Scherer MD - 01/24/2024 FULL RESULT: Examination: XR HIP 1 VW RIGHT, January 24, 2024. Clinical History: Pathologic fracture of neck of femur Cholangiocarcinoma of biliary tract, NOS Breakthrough cancer pain Breakthrough cancer pain Anemia in malignant neoplastic disease Edema of lower extremity Indication: fracture Comparison: Right femur radiographs of December 20, 2023 Technique: Single AP view of the hip on 2 images.. Findings: There is a subcapital fracture of the femoral neck. The femoral neck andshaft have shifted in a proximal direction by approximately 2/3rds thewidth of the femoral head. The presence of a previous lytic lesionsuggests that this probably is a pathologic fracture due to tumor. Noother focal abnormalities are noted. IMPRESSION: Subcapital femoral neck fracture. ACTIONABLE ITEMS/RECOMMENDATIONS*: None. Russell Dickey MD [facility] DIAGNOSTIC IMAGI NG ORDERABLES * (ABNORMAL) CA 19-9 (01/19/2024 7:43 AM [employer]) Only the most recent of4 resultswithin the time period is included. Pathologist [facility] CA 19-9 171.5(H) <=35.0 U/mL 01/19/2024 8:[address] [facility] Blood Peripheral blood specimen / Unknown Venipuncture / Unknown 01/19/2024 7:43 AM [employer] 01/19/2024 7:43 AM [facility] - 01/19/2024 8:17 AM [employer] Results greater than 9500 U/mL may not be reliable due to matrix effect with extended dilution as it exceeds the production assembly operator's recommended limit. Caution should be exercised when interpreting such values and done in conjunction with clinical context. This test is measured by electrochemiluminescence immunoassay on Emanuel Jorge immunoassay analyzers. Results obtained in different methods are not interchangeable. Shimon Florian MD LAB BLOOD ORDERABLES [facility] [address] [facility] [address], [facility] [address] [place] [address] * (ABNORMAL) FIBRO Test ACTI Test (01/05/2024 8:21 AM [employer]) [facility] Fibro Test Score 0.90 01/09/20 24 12:30 PM [facility] [employer] [place] Fibro Test Stage F4 01/09/20 12:30 PM [facility] Fib[facility] Test Interp severe fibrosis 01/09/2024 12:30 PM [facility] [employer] [place] Comment: FibroTest estimates liver fibrosis FibroTest Score Stage Interpretation 0.00-0.21 F0 no fibrosis 0.21-0.27 F0-F1 no fibrosis 0.27-0.31 F1 minimal fibrosis 0.31-0.48 F1-F2 minimal fibrosis 0.48-0.58 F2 moderate fibrosis 0.58-0.72 F3 advanced fibrosis 0.72-0.74 F3-F4 advanced fibrosis 0.74-1.00 F4 severe fibrosis (Cirrhosis) Acti Test Score 0.44 4 12:30 PM [facility] [employer] [place] Acti Test Grade A1-A2 12:30 PM [facility] Acti Test Interp minimal activity 01/09/2024 12:30 PM [facility] Comment: ActiTest estimates necroinflammatory activity ActiTest Score Grade Interpretation 0.00-0.17 A0 no activity 0.17-0.29 A0-A1 no activity 0.29-0.36 A1 minimal activity 0.36-0.52 A1-A2 minimal activity 0.52-0.60 A2 significant activity 0.60-0.62 A2-A3 significant activity 0.62-1.00 A3 severe activity Fibro Test-Acti Test Comment SEE COMMENTS 01/09/2024 12:30 PM [facility] Comment: The reliability of results is dependent on compliance with the preanalytical and analytical conditions recommended by [employer]. The tests have to be deferred for: acute hemolysis, acute hepatitis, acute inflammation, extra hepatic cholestasis. The advice of a specialist should be sought for interpretation in chronic hemolysis and Gilbert's syndrome. The test interpretation is not validated in liver transplant patients. Isolated extreme values of one of the components should lead to caution in interpreting the results. In case of discordance between a biopsy result and a test, it is recommended to seek advice of a specialist. The causes of these discordances could be due to a flaw of the test or to a flaw in the biopsy: i.e. a liver biopsy has a 33% variability rate for one fibrosis stage. FibroTest is interpretable for chronic hepatitis B and C, alcoholic and non alcoholic steatosis. ActiTest is interpretable for chronic hepatitis B and C. ADDITIONAL INFORMATION This test was developed and its performance characteristics determined by [facility] in a manner consistent with CLIA requirements. This test has not been cleared or approved by the U.S. Food and Drug Administration. [employer] Serial Number [id number] 01/09/2024 12:30 PM [facility] Apolipoprotein A1, S 91(L) >=140 mg/dL 01/09/2024 12:30 PM [facility] Beowk-5-Izbfchfwdnef n,S 380(H) 100 - 280 mg/dL 01/09/2024 12:30 PM [facility] Haptoglobin, S 139 30 - 200 mg/dL 01/09/2024 12:30 PM [facility] ALTF 43 7 - 45 U/L 01/09/2024 12:30 PM [facility] GGTF 334(H) 5 - 36 U/L 01/09/2024 12:30 PM [facility] TBILF 0.9 0.0 - 1.2 mg/dL 01/09/2024 12:30 PM [facility] Comment: Test Performed by: [place] [id number] [employer]: Osorio Rico M.D. Ph.D.; CLIA# [id number] Test Performed by: [place] [address] [employer]: Osorio Rico M.D. Ph.D.; CLIA# [id number] Blood Venipuncture / Unknown 01/05/2024 8:21 AM [employer] 01/05/2024 8:23 AM [facility] Cammie Rodriguez MD LAB BLOOD ORDERABLES Performing Organization Address City/State/[facility] Co de Phone Number [facility] * Hepatitis A Antibody IgG (01/05/2024 8:21 AM [facility]) Hepatitis A IgG Negative 1:48 PM [employer] [facility] Comment: Result indicates no past exposure or immunity to hepatitis A infection. REFERENCE VALUE Unvaccinated: Negative Vaccinated: Positive Test Performed by: [place] [address] [employer]: Osorio Rico M.D. Ph.D.; CLIA# [id number] Blood Venipuncture / Unknown 01/05/2024 8:21 AM [employer] 01/05/2024 8:23 AM [employer] Cammie Rodriguez MD LAB BLOOD ORDERABLES Performing Organization Address [facility] Co de Phone Number [facility] [employer] [facility] * HIV 1/2 Antigen/Antibody, Fourth Gen W/RFL (01/05/2024 8:21 AM [employer]) HIV Ag/Ab, 4TH Gen NON-REACT TAJ NON-REACT TAJ 01/05/2024 10:40 PM [employer] [facility] Comment: HIV-1 antigen and HIV-1/HIV-2 antibodies were not detected. There is no laboratory evidence of HIV infection. PLEASE NOTE: This information has been disclosed to you from records whose confidentiality may be protected by state law. If your state requires such protection, then the state law prohibits you from making any further disclosure of the information without the specific written consent of the person to whom it pertains, or as otherwise permitted by law. A general authorization for the release of medical or other information is NOT sufficient for this purpose. For additional information please refer to http://education.Viacore.Strut/faq/VZF674 (This link is being provided for informational/ educational purposes only.) The performance of this assay has not been clinically validated in patients less than 2 years old. Blood Venipuncture / Unknown 01/05/2024 8:21 AM [employer] 01/05/2024 8:23 AM [employer] Narrative [facility]) - 01/05/2024 10:40 PM [employer] Performing Organization Information: [facility] [address] [place] [id number] Yvonne Llanes Cammie Rodriguez MD LAB BLOOD ORDERABLES Performing Organization Address City/[facility]/ZIP Co de Phone Number [facility]) * Hepatitis E IgG Ab (01/05/2024 8:21 AM [employer]) HEV IgG Ab-Ceres Negative Negative 3:07 PM [employer] [facility] Comment: ADDITIONAL INFORMATION This test was developed and its performance characteristics determined by [facility] in a manner consistent with CLIA requirements. This test has not been cleared or approved by the U.S. Food and Drug Administration. Test Performed by: [facility] [address] [place] [id number] [employer]: Osorio Rico M.D. Ph.D.; CLIA# [id number] Blood Venipuncture / Unknown 01/05/2024 8:21 AM [employer] 01/05/2024 8:23 AM [employer] Cammie Rodriguez MD LAB BLOOD ORDERABLES [facility] * IR CHEST XRAY 1 VIEW (01/02/2024 12:05 PM [employer]) Anatomical Region Laterality Modality Chest Digital Radiogra phy Narrative 01/02/2024 3:04 PM [employer] Date of Procedure: 01/02/24 Attending Physician: Good Gilbert MD Obiee Consultant: Tanvir Heart and Huong Alonzo Pre-procedure Diagnosis: Cholangiocarcinoma of biliary tract, NOS Post-procedure Diagnosis: Unchanged Indication: Chemotherapy administration Title of Procedure: Right IJ power-injectable chest port placement. Port: Bard PowerPort Clearvue SLIM Implantable Port Catheter size: 8F Operative Findings: Successful percutaneous image-guided power-injectable chest port placement in the right internal jugular vein. Consent: The procedure, risks, indications and alternatives were explained. All questions were answered and informed consent was obtained. I have reviewed the history and physical dictated by the mid-level practitioner / fellow. Sedation/Anesthesia: Anesthesia provided by Anesthesia Department. Insertion site prepped with: Chlorhexadine gluconate Procedure in Detail: A time out was performed prior to the start of the procedure and the correct patient, procedure, presence of consent, site, and side were confirmed with all members of the team. Insertion site was prepped and cleaned with aseptic technique. Sterile devices and equipment were used. Doors were closed and traffic kept to a minimum during the procedure. Skin prep agent was allowed to dry prior to procedure. Maximum sterile barriers were used including sterile gloves, gown, cap, mask and head to toe sterile cover. Hand hygiene was performed prior to insertion by all persons performing/assisting with procedure. Ultrasound evaluation of the access site demonstrated a patent and compressible vein. Lidocaine 1% was used for local anesthesia. Under ultrasound imaging guidance, a 21 gauge needle was advanced into the right internal jugular vein and the access site was scaled up to accept a micropuncture transitional dilator. An image was obtained and placed into the medical record. A wire was advanced into the inferior vena cava under fluoroscopic guidance to secure access. An appropriate site within the upper chest was determined and an incision was created. A subcutaneous pocket below the incision site was created. The subcutaneous tunnel was then created in the upper chest and the port catheter was advanced through the tunnel. The venous access site was scaled up to accept a peel-away sheath. The catheter was then advanced through the sheath, with the tip of the catheter in a satisfactory position at the SVC/atrial junction on fluoroscopy. The catheter was connected to the hub of the chest port. The chest port hub was placed within the subcutaneous pocket. Venous access incision closed with Dermabond. The port pocket incision was closed as below. Port pocket closure: The incision was approximated with multiple subdermal sutures. Dermabond was applied to the incision sites. Additional Comments: Chest radiograph demonstrates appropriate chest port catheter positioning. Estimated Blood Loss: Minimal Specimens Removed: No Disposition: PACU Plan: Port Catheter positioning was confirmed with a fluoroscopic image at the conclusion of the procedure. Tip of the catheter lies at the SVC/RA junction. The port is now ready for immediate use. Patient will be contacted in 1-2 weeks for a post port placement incision check. This draft note was prepared by the NICOLE involved in the case; it was then reviewed and finalized by the attending physician. I certify my physical presence in the procedure/control room at the time of the procedure. I personally reviewed the image(s) and the NICOLE's interpretation and agree with the written report. Huong Alonzo APRN IMG IR ORDERABLES * IR FL PORT PLACEMENT (01/02/2024 11:35 AM [employer]) Anatomical Region Laterality Modality X-Ray Angiograph y, Ultrasound Narrative 01/02/2024 3:04 PM [employer] Date of Procedure: 01/02/24 Attending Physician: Good Gilbert MD Obiee Consultant: Tanvir Heart and Huong Alonzo Pre-procedure Diagnosis: Cholangiocarcinoma of biliary tract, NOS Post-procedure Diagnosis: Unchanged Indication: Chemotherapy administration Title of Procedure: Right IJ power-injectable chest port placement. Port: Bard PowerPort Clearvue SLIM Implantable Port Catheter size: 8F Operative Findings: Successful percutaneous image-guided power-injectable chest port placement in the right internal jugular vein. Consent: The procedure, risks, indications and alternatives were explained. All questions were answered and informed consent was obtained. I have reviewed the history and physical dictated by the mid-level practitioner / fellow. Sedation/Anesthesia: Anesthesia provided by Anesthesia Department. Insertion site prepped with: Chlorhexadine gluconate Procedure in Detail: A time out was performed prior to the start of the procedure and the correct patient, procedure, presence of consent, site, and side were confirmed with all members of the team. Insertion site was prepped and cleaned with aseptic technique. Sterile devices and equipment were used. Doors were closed and traffic kept to a minimum during the procedure. Skin prep agent was allowed to dry prior to procedure. Maximum sterile barriers were used including sterile gloves, gown, cap, mask and head to toe sterile cover. Hand hygiene was performed prior to insertion by all persons performing/assisting with procedure. Ultrasound evaluation of the access site demonstrated a patent and compressible vein. Lidocaine 1% was used for local anesthesia. Under ultrasound imaging guidance, a 21 gauge needle was advanced into the right internal jugular vein and the access site was scaled up to accept a micropuncture transitional dilator. An image was obtained and placed into the medical record. A wire was advanced into the inferior vena cava under fluoroscopic guidance to secure access. An appropriate site within the upper chest was determined and an incision was created. A subcutaneous pocket below the incision site was created. The subcutaneous tunnel was then created in the upper chest and the port catheter was advanced through the tunnel. The venous access site was scaled up to accept a peel-away sheath. The catheter was then advanced through the sheath, with the tip of the catheter in a satisfactory position at the SVC/atrial junction on fluoroscopy. The catheter was connected to the hub of the chest port. The chest port hub was placed within the subcutaneous pocket. Venous access incision closed with Dermabond. The port pocket incision was closed as below. Port pocket closure: The incision was approximated with multiple subdermal sutures. Dermabond was applied to the incision sites. Additional Comments: Chest radiograph demonstrates appropriate chest port catheter positioning. Estimated Blood Loss: Minimal Specimens Removed: No Disposition: PACU Plan: Port Catheter positioning was confirmed with a fluoroscopic image at the conclusion of the procedure. Tip of the catheter lies at the SVC/RA junction. The port is now ready for immediate use. Patient will be contacted in 1-2 weeks for a post port placement incision check. This draft note was prepared by the NICOLE involved in the case; it was then reviewed and finalized by the attending physician. I certify my physical presence in the procedure/control room at the time of the procedure. I personally reviewed the image(s) and the NICOLE's interpretation and agree with the written report. Shimon Florian MD IMG IR ORDERABLES * CT Bone Mets Simulation without Contrast (12/27/2023 9:02 AM [employer]) Narrative Systemgenerated, Documentation - 12/27/2023 9:19 AM [employer] This procedure requires no interpretation from the radiologist. Ashleigh Spaulding APRN IM RO CT SIM ORD ERABLES * 3D Dental Imaging (iCAT) (12/27/2023 8:45 AM [employer]) Narrative Systemgenerated, Documentation - 12/27/2023 8:45 AM [employer] This procedure requires no interpretation from the radiologist. Ramila Jimenez DDS IMG NON DI ORDERABLE S * Hepatitis C Virus RNA Detect/Quant (12/22/2023 6:31 AM [employer]) [facility] HepC RNA PCR [facility] Undetected Undetected IU/mL 12/24/2023 3:28 PM [employer] [facility] Comment: Result in log IU/mL is Undetected. ADDITIONAL INFORMATION The quantification range of this assay is 15 to 100,000,000 IU/mL (1.18 log to 8.00 log IU/mL). Testing was performed using the jorge HCV test ([employer] Test Performed by: [facility] [address] [place] [id number] [employer]er: Osorio Rico M.D. Ph.D.; CLIA# [id number] Blood Peripheral blood specimen / Unknown Venipuncture / Unknown 12/22/2023 6:31 AM [employer] 12/22/2023 6:31 AM [employer] Shimon Florian MD LAB BLOOD ORDERABLES Performing Organization Address City/[facility]/ZIP Co de Phone Number [facility] * (ABNORMAL) TSH (12/22/2023 6:31 AM [employer]) Thyroid Stimulating Hormone 11.41(H) 0.27 - 4.20 mcunit/mL 12/22/2023 7:24 AM [employer] [employer] [place] Blood Peripheral blood specimen / Unknown Venipuncture / Unknown 12/22/2023 6:31 AM [employer] 12/22/2023 6:31 AM [employer] Shimon Florian MD LAB BLOOD ORDERABLES Performing Organization Address [facility] Co de Phone Number [place] [phone] [place] [address] * Free T4 (12/22/2023 6:31 AM [employer]) T4 (Thyroxine) Free 1.26 0.93 - 1.70 ng/dL 12/22/2023 7:24 AM [employer] [place] Blood Peripheral blood specimen / Unknown Venipuncture / Unknown 12/22/2023 6:31 AM [employer] 12/22/2023 6:31 AM [employer] Shimon Florian MD LAB BLOOD ORDERABLES Performing Organization Address [facility] Co de Phone Number [place] [phone] [place] [address] * IR CT GUIDED BIOPSY RETROPERITONEAL (12/15/2023 10:02 AM [employer]) Anatomical Region Laterality Modality Abdomen/Pelvis, Retroperitoneum/Peritoneum Computed Tomography Narrative 12/15/2023 11:16 AM [employer] Date of Procedure: 12/15/23 Attending Physician: Flo Arora MD Obiee Consultant: None Pre Procedure Diagnosis: Adenocarcinoma, NOS of unknown primary site Post Procedure Diagnosis: Unchanged Indication: Evaluate for metastasis Protocol Number: N/A Title of Procedure: Percutaneous Computed Tomography-Guided Biopsy Operative Findings: Percutaneous image-guided biopsy of 1.6cm left para-aortic lymph node. Consent: The procedure, risks, indications and alternatives were explained. All questions were answered and informed consent was obtained. I have reviewed the history and physical dictated by the mid-level practitioner / fellow. Sedation/Anesthesia: Anesthesia provided by Anesthesia Department. Procedure in Detail: A time out was performed prior to the start of the procedure and the correct patient, procedure, presence of consent, site, and side were confirmed with all members of the team. With the patient in the prone position, the skin overlying the area of interest was prepped and draped in the usual sterile fashion. Lidocaine 1% was used for local anesthesia. Using a posterior approach under Computed Tomography image-guidance, a 17 gauge needle was advanced down to the left para-aortic lymph node. An image was obtained and placed into the medical record. Samples were obtained for evaluation. Sampling: Core Biopsy: An 18 gauge needle used to obtain samples for surgical pathology evaluation. Total number of samples: 4 Specimens Disposition: Diagnostic Biopsy: The biopsy samples were submitted to pathology. Additional Comments: None Estimated Blood Loss: Minimal Immediate Complications: None Disposition: PACU Plan: No follow-up with Interventional Radiology required. Shimon Florian MD G IR ORDERABLES * Pathology Biopsy Interpretation (12/15/2023 9:36 AM [employer]) Only the most recent of3 resultswithin the time period is included. Submitted Clinical History Adenocarcinoma, NOS of unknown primary site [C80.1] 12/22/2023 6:38 PM [employer] [facility] Diagnosis A: Lymph node(s), left, retroperitoneum, biopsy: METASTATIC POORLY DIFFERENTIATED CHOLANGIOCARCINOMA (see comment). 12/22/2023 6:38 PM [facility] Comment The tumor predominantly appears as solid nests associated with some necrosis; occasional glandular structures and focal intracytoplasmic mucin (mucicarmine stain) are noted. The tumor cells are generally monomorphic, and small, however apoptosis and mitosis are identified. The tumor cells are diffusely positive for albumin-RICK and HepPar 1, however staining with glypican-3, arginase, and canalicular pattern with CD10 are absent. CK7 and CK19 are patchy positive, HNF1-beta strong positive, BAP1 is lost, MOC31 and Leinn-EP4 are negative. CD56 is patchy positive in the tumor. Additionally, the tumor cells are negative for CD117, CDX2, TTF-1, synaptophysin, p40, and SALL4. And there are no separate morphologic components, therefore the tumor is not labeled as combined hepatocellular-chola ngiocarcinoma. There are some unusual staining features (weak, patchy CK7 and CK19 and diffuse HepPar1). Expression of CD56 can be regarded as a stem cell marker in this context, and this tumor can be interpreted as a primary hepatic carcinoma with some "intermediate" cell features. Correlation with molecular test results will be helpful. 12/22/2023 6:38 PM [facility] Gross Description A: Lymph node(s), left, retroperitoneum, left retroperitoneal lymph node biopsy: Four gonzalez-white to red-brown core biopsies ranging from 1.1 to 1.8 cm in length with a diameter of 0.1 cm, entirely submitted in A1. GM 12/22/2023 6:38 PM [facility] Biomarker Block(s) Tumor Block: A1 12/22/2023 6:38 PM [facility] Disclaimer "Some tests reported here may have been developed and performance characteristics determined by [facility] Medicine. These tests have not been specifically cleared or approved by the U.S. Food and Drug Administration. If applicable, controls were reviewed and showed appropriate reactivity." 12/22/2023 6:38 PM [facility] Tissue (Lymph Node(s), Left, Retroperitoneum) 12/15/2023 9:36 AM [employer] 12/16/2023 7:27 AM [employer] Shimon Florian MD LAB PATHOLOGY ORDERA ALISAS [facility] [place] [address] [place] [address], [place] * CT Chest Abdomen Pelvis with and without Contrast Liver (12/06/2023 5:32 PM [employer]) Anatomical Region Laterality Modality Chest, Abdomen, Pelvis Computed Tomography 12/08/2023 8:10 AM [employer] Impressions 12/08/2023 5:26 PM [employer] 1. New and enlarging pulmonary, multicompartmental crystal, and peritoneal/retroperitoneal metastases. 2. New pleural and osseous lytic metastases. 3. Grossly stable multifocal hepatic metastases since MRI dated 10/25/2023. 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 4. New moderate right pleural effusion. ACTIONABLE ITEMS/RECOMMENDATIONS: Please refer to IMPRESSION I personally reviewed these image(s) along with the resident's/fellow's interpretations, certify that if a procedure was performed I was physically present, and agree with the final report. Narrative 12/08/2023 5:26 PM [employer] Examination: CT CHEST ABDOMEN PELVIS W WO CONTRAST LIVER on 12/06/2023 5:32 PM. Clinical History: Newly diagnosed cholangiocarcinoma with liver and lung involvement; recent liver biopsy revealed poorly differentiated adenocarcinoma (11/14/2023) Indication: Staging scans Comparison: CT chest 10/27/2023, MRI abdomen 10/25/2023, outside facility CT abdomen/pelvis 10/05/2023. Technique: CT CHEST ABDOMEN PELVIS W WO CONTRAST LIVER. Findings: CHEST: Lungs and Pleura: New lung metastases as well as interval increase in the size of bilateral pulmonary metastases. For example: * Left upper lobe metastasis measures 1.1 cm (310/26), previously 1 cm * Right lower lobe metastasis measures 2.5 cm (310/57), previously 1.7 cm * Right lower lobe metastasis measures 1.8 cm (310/73), previously 1.5 cm * Left upper lobe metastasis abutting the major fissure measures 1.5 cm (image 310/59), previously 1 cm New enhancing bilateral pleural nodules, right greater than left) for example, 309/93, 127, 137). New moderate right pleural effusion. No left pleural effusion. Cardiomediastinum: The heart is normal in size with 3 vessel moderate to severe coronary artery calcifications. No pericardial effusion. Lymph nodes: Interval increase in size in the extensive supraclavicular, mediastinal, and hilar lymphadenopathy. For example: * Left supraclavicular node measures 1.2 cm (309/9), previously 0.9 cm * Right supraclavicular node measures 1.4 cm (309/15), previously 1 cm * Right lower paratracheal centrally necrotic node measures 2.3 cm (309/47), previously 1.4 cm * Conglomeration of centrally necrotic right hilar nodes measure 2.5 cm (309/56), previously 2.3 cm Prominent anterior, middle, and posterior diaphragmatic nodes measure up to 1.4 cm (309/99), previously 1.3 cm. ABDOMEN AND PELVIS: Hepatobiliary: Within the limitation of comparing different imaging techniques/modalities, there are stable to slightly increased multifocal hepatic malignant tumors since MRI dated 10/25/2023. The hepatic masses show variegated and heterogeneous contrast enhancement. For example: * Dominant hepatic segment 5/6/7/8 mass measures up to 7.8 cm (307/132), previously 8 cm; this is associated with occlusion/invasion of the right portal vein (307/135) * Hepatic segment 7 mass measures 3 cm (307/122), previously 2.8 cm * Hepatic segment 8 mass measures 2.1 cm (307/2010), previously 1.9 cm Mild intrahepatic biliary ductal dilation in segment 8 secondary to the dominant mass. Cholelithiasis. Spleen: No splenomegaly. Pancreas: No mass or ductal dilatation. Adrenal Glands: Unchanged nodular thickening of the left adrenal gland. Kidneys, Ureters, Bladder: No hydronephrosis. Scattered bilateral renal cysts. No bladder mass. Gastrointestinal Tract: No obstruction. Colonic diverticulosis without diverticulitis. Pelvic Organs: Status post hysterectomy. No adnexal mass. Peritoneum/Retroperitoneum: New and growing peritoneal/retroperitoneal nodules. For example: * Right inferior perihepatic peritoneal nodule measures 1 cm (307/153), previously 0.7 cm * More conspicuous right perihepatic nodule measures 0.6 cm (307/145) * New left perinephric nodule measures 0.4 cm (307/154) Trace ascites. Lymph Nodes: Increase in size in the centrally necrotic upper abdominal and retroperitoneal lymphadenopathy. For example: * Periportal node measures 1.5 cm (307/139), previously 1.2 cm * Another periportal node measures 1.1 cm (307/128), previously 0.8 cm * Left para-aortic node measures 1.4 cm (307/146), previously 0.7 cm MUSCULOSKELETAL: New osteolytic metastases, with examples seen in the manubrium (607/142) and right femoral head (309/237). Procedure Note Laurent Lai MD - 12/08/2023 Examination: CT CHEST ABDOMEN PELVIS W WO CONTRAST LIVER on 12/06/2023 5:32PM. Clinical History: Newly diagnosed cholangiocarcinoma with liver and lunginvolvement; recent liver biopsy revealed poorly differentiatedadenocarcinoma (11/14/2023) Indication: Staging scans Comparison: CT chest 10/27/2023, MRI abdomen 10/25/2023, outside facilityCT abdomen/pelvis 10/05/2023. Technique: CT CHEST ABDOMEN PELVIS W WO CONTRAST LIVER. Findings: CHEST: Lungs and Pleura: New lung metastases as well as interval increase in thesize of bilateral pulmonary metastases. For example: * Left upper lobe metastasis measures 1.1 cm (310/26), previously 1 cm * Right lower lobe metastasis measures 2.5 cm (310/57), previously 1.7cm * Right lower lobe metastasis measures 1.8 cm (310/73), previously 1.5cm * Left upper lobe metastasis abutting the major fissure measures 1.5 cm(image 310/59), previously 1 cm New enhancing bilateral pleural nodules, right greater than left) forexample, 309/93, 127, 137). New moderate right pleural effusion. No left pleural effusion. Cardiomediastinum: The heart is normal in size with 3 vessel moderate tosevere coronary artery calcifications. No pericardial effusion. Lymph nodes: Interval increase in size in the extensive supraclavicular,mediastinal, and hilar lymphadenopathy. For example: * Left supraclavicular node measures 1.2 cm (309/9), previously 0.9 cm * Right supraclavicular node measures 1.4 cm (309/15), previously 1 cm * Right lower paratracheal centrally necrotic node measures 2.3 cm(309/47), previously 1.4 cm * Conglomeration of centrally necrotic right hilar nodes measure 2.5 cm(309/56), previously 2.3 cm Prominent anterior, middle, and posterior diaphragmatic nodes measure upto 1.4 cm (309/99), previously 1.3 cm. ABDOMEN AND PELVIS: Hepatobiliary: Within the limitation of comparing different imagingtechniques/modalities, there are stable to slightly increased multifocalhepatic malignant tumors since MRI dated 10/25/2023. The hepatic massesshow variegated and heterogeneous contrast enhancement. For example: * Dominant hepatic segment 5/6/7/8 mass measures up to 7.8 cm (307/132),previously 8 cm; this is associated with occlusion/invasion of the rightportal vein (307/135) * Hepatic segment 7 mass measures 3 cm (307/122), previously 2.8 cm * Hepatic segment 8 mass measures 2.1 cm (307/2010), previously 1.9 cm Mild intrahepatic biliary ductal dilation in segment 8 secondary to thedominant mass. Cholelithiasis. Spleen: No splenomegaly. Pancreas: No mass or ductal dilatation. Adrenal Glands: Unchanged nodular thickening of the left adrenal gland. Kidneys, Ureters, Bladder: No hydronephrosis. Scattered bilateral renalcysts. No bladder mass. Gastrointestinal Tract: No obstruction. Colonic diverticulosis withoutdiverticulitis. Pelvic Organs: Status post hysterectomy. No adnexal mass. Peritoneum/Retroperitoneum: New and growing peritoneal/retroperitonealnodules. For example: * Right inferior perihepatic peritoneal nodule measures 1 cm (307/153),previously 0.7 cm * More conspicuous right perihepatic nodule measures 0.6 cm (307/145) * New left perinephric nodule measures 0.4 cm (307/154) Trace ascites. Lymph Nodes: Increase in size in the centrally necrotic upper abdominaland retroperitoneal lymphadenopathy. For example: * Periportal node measures 1.5 cm (307/139), previously 1.2 cm * Another periportal node measures 1.1 cm (307/128), previously 0.8 cm * Left para-aortic node measures 1.4 cm (307/146), previously 0.7 cm MUSCULOSKELETAL: New osteolytic metastases, with examples seen in the manubrium (607/142)and right femoral head (309/237). IMPRESSION: 1. New and enlarging pulmonary, multicompartmental crystal, andperitoneal/retroperitoneal metastases. 2. New pleural and osseous lytic metastases. 3. Grossly stable multifocal hepatic metastases since MRI dated112/25/2022. 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 4. New moderate right pleural effusion. ACTIONABLE ITEMS/RECOMMENDATIONS: Please refer to IMPRESSION I personally reviewed these image(s) along with the resident's/fellow'sinterpretations, certify that if a procedure was performed I wasphysically present, and agree with the final report. Mandi LUNA IMG CT ORDERABLES * [facility] Liquid Biopsy Normal (12/06/2023 11:49 AM [employer]) Blood Peripheral blood specimen / Unknown Venipuncture / Unknown 12/06/2023 11:49 AM [employer] 12/06/2023 12:03 PM [employer] Mandi SUTTON [facility] [address] [place] [address] * MD KANIKA ESCOBAR LB: Mutation Analysis Precision Panel Interpretation and Report (12/06/2023 11:49 AM [employer]) [facility] Liquid Biopsy NGS Result Fidelina [id number] SNVs/Indels CNVs Fusions BAP1 DUSP2 GPS2 NOTCH1 PBRM1 None None Somatic Mutations (SNVs/Indels) Gene DNA Protein Location VAF Type BAP1 c.230del p.V77fs*10 Exon 4 14% Deletion - Frameshift DUSP2 c.62C>T p.P21L Exon 1 17% SNV - Missense GPS2 c.220_222del p.E74del Exon 4 1% Deletion - Deletion NOTCH1 c.2293G>A p.G765S Exon 14 3% SNV - Missense PBRM1 c.1260T>A p.Y420* Exon 12 4% SNV - Nonsense Copy Number Variations (CNVs) None Identified Gene Fusions None Identified Clinical test requisition for mutation studies on the following genes was received: APC, BRAF, BRCA1 COMMENTS: Cancer type: Cholangiocarcinoma Comparison with tissue sequencing: No in-house tissue genomic testing results available for comparison at the time of reporting. The selection and classification of variants for reporting incorporates review of available clinicopathologic information, correlation with current clinical presentation, any consultations with additional healthcare providers and exercise of medical judgement by the sign-out pathologist. GUIDE TO STANDARDIZED NOMENCLATURE AND EXPLANATION OF CHANGES: Variants identified are described using an implementation of a standardized nomenclature developed by the Human Genome Variation Society (HGVS, http://www.hgvs.org/ varnomen/). The normative Genbank gene reference sequence identifier and gene symbol in parentheses are provided, followed by the coding DNA sequence change (e.g., "c. 200A>G", which would mean that the position 200 adenine is changed to guanine), and then the inferred protein change (e.g., "p. V35C", which would mean that the amino acid at codon 35 is changed from valine to cysteine). Additional explanations for the DNA and protein changes seen in the current specimen are shown in the following tables: Explanation of DNA variant/mutation types seen in this specimen DNA Change SNV A single nucleotide difference (point mutation) has been identified in the patient sample relative to the reference wild-type gene sequence Deletion A sequence of DNA has been deleted in the patient sample relative to the reference wild-type gene sequence Explanation of protein variant/mutation types seen in this specimen Protein Change Missense A single amino acid residue change in the patient sample relative to the reference wild-type protein sequence Nonsense A single nucleotide change resulting in a premature stop codon leading to a truncated protein product in the patient sample relative to the reference wild-type protein sequence Frameshift A mutation involving deletion or insertion of a non-triplet number of nucleotides in the patient sample relative to the reference wild-type sequence. Frameshift mutations generally result in a nonsense translation with early termination of translation. Deletion A set of amino acids has been deleted in the patient sample relative to the reference wild-type protein sequence Additional information on genes/variants with findings identified on this assay: Gene Genomic Variant COSMIC dbSNP ClinVar BAP1 chr3:[id number] CA>C c.230del p.V77fs*10 DUSP2 chr2:[id number] G>A c.62C>T p.P21L GPS2 chr17:3258548 TCTC>T c.220_222del p.E74del NOTCH1 chr9:[id number] C>T c.2293G>A p.G765S PBRM1 chr3:[id number] A>T c.1260T>A p.Y420* Link to COSMIC: https://cancer.sange r.ac.uk/cosmic Link to dbSNP: https://www.ncbi.nlm .nih.gov/snp Link to ClinVar: https://www.ncbi.nlm .nih.gov/clinvar METHODOLOGY: Test Description: The [facility] Mutation Analysis Precision Panel Liquid Biopsy (MDA LUZ LB) assay is a custom high-throughput next generation sequencing-based CLIA assay that uses targeted hybridization-based capture technology for detection of sequence variants/mutations in 701 genes (single nucleotide variants [SNVs] and insertion/deletion alterations [indels]), copy number variants (CNVs) in 19 genes and select gene rearrangements in 34 genes (Fusions) in cell-free DNA (cfDNA) isolated from plasma specimens (See Appendix Table 1 and 2). MDA [facility]Z LB employs DNA extracted from both plasma and paired peripheral blood mononuclear cells (PBMC) specimens in our CLIA-certified molecular diagnostic laboratory. Routinely collected blood samples are the accepted specimen types. Thirty nanograms of cfDNA is recommended, with a minimum accepted 20ng of genomic DNA, which undergoes whole-genome library construction with adapters carrying Unique Molecular Indices (JOSSY) allowing tagging of original double-stranded DNA that facilitates statistical reconstruction of reads sequenced as duplicates from a single-amplified genome. A target area of 2.1 megabases (Mb) GRCh37/hg19 genome is enriched with custom hybrid-capture, 120nt dsDNA probes. MDA [facility]Z LB assay uses the OpenZine 6000 next generation sequencing platform and bidirectional paired-end sequencing to identify nucleic acid variants for all coding regions from most genes in the panel, the TERT promoter, 1 non-coding RNA gene (TERC), and clinically relevant rearrangements. Reported somatic mutations are identified by comparison to the human genome reference sequence GRCh37/hg19 and reviewed in Shoot Extreme against a process-matched normal control. Data analysis is performed in house by the C3DNA LB Bioinformatics pipeline (BIP) which relies on the dual-duplex molecular barcoding for consensus analysis to reduce sequencing artifacts and achieve greater sensitivity and positive predictive value. [facility] Fort[facility]om LB is intended to provide tumor mutation profiling in accordance with institutional guidelines in oncology for patients with solid malignant neoplasms. Report annotation and software: A post-variant calling analysis and annotation tool, Shoot Extreme version 1.10.1.589, was used in the construction of this report. The following additional software tools were utilized in the experimental setup and bioinformatic analysis: OpenZine Control Software 1.8, erento Real Time Analysis Software 3.4.4, InhibOx and C3DNA LB magnify360 v2.0. Detailed information about the signal-processing, base calling, alignment, and variant calling algorithms are available upon request. Test performance specifications: For this assay, sensitivity of detection is related in part to depth of coverage and the amount of input cfDNA. We determined the effective lower limit of detection of this assay (analytical sensitivity) for single nucleotide variations, insertions/deletions and gene fusions to be 0.5% variant allelic frequency (VAF) for 30ng cfDNA input and 1% VAF for 10ng cfDNA input by taking into consideration the depth of coverage at a given base. Sensitivity for amplifications depends on both input cfDNA and the amplitude of the gene amplification. The presence of amplification is determined by individual gene Z-score and copy number threshold derived from healthy normal cfDNA. A nominal threshold of 2.5 copies is used to restrict reporting to high-confidence calls. Limitations of the test: MDA LUZ LB requires normal non-tumor DNA, typically isolated from the PBMCs from the same collection tube, for appropriate interpretation of somatic mutations. Silent mutations (mutations that do not result in an amino acid change) are not reported. The primary purpose of this panel is to detect somatic mutations in genes involved in oncogenesis of this patient s tumor. The test or the results thereof should not be used to detect germline variants for hereditary cancer syndromes. If a hereditary cancer syndrome is suspected, separate testing of a germline sample should be performed using an appropriate assay. Variants detected below Limits of Detection (LoD) not deemed to be confirmable by independent, orthogonal methods and/or in significant discordance with the tumor fraction in the tested sample may be excluded as the clinical significance and reliability of such low-level mutation calls is not clear. The assay is designed to detect point mutations, insertion/deletions, copy number gains (amplifications) and gene fusions. The assay does not detect copy number losses. Quality and quantity of cfDNA can influence variant detection. False negative results can be obtained at low cfDNA inputs. Copy number gains below 2.5 cut-off not confirmable by independent, orthogonal methods may be excluded as the clinical significance and reliability of such low-level calls are not clear. Correlation with traditional methods of copy number assessment such as fluorescent in situ hybridization (FISH) on tumor tissue is recommended if clinical action based on findings is being considered. Since hematopoietic cells can also contribute to cfDNA, the possibility that any mutation detected may represent clonal hematopoiesis of indeterminate potential (CHIP) or a clonal hematologic disorder cannot be ruled out. The results of MDA [facility]Z LB genomic testing should be correlated with all available and applicable clinicopathologic information by the treating physician in clinical decision making. Sequencing coverage of the genes: The following table describes the extent and adequacy of coverage for ordered genes only. Covered genes/exons/codons are defined as those having total coverage depth of greater than or equal to 1000 FDJ-cjyhy-jygcgxhgr collapsed reads (minimum 1000x coverage). Mutations in ordered genes outside the optimally covered regions listed below may be detected with diminished sensitivity and cannot be ruled out. Coverage information for non-ordered genes for this sample is complex and lengthy but may be requested from the laboratory if required for clinical care or correlative purposes. Coverage for ordered genes and codon(s) tested with a minimum of 1000x coverage Gene Exons (codons) tested APC ([id number]) 2-16 (13348) BRAF ([id number]) 1 (44), 1 (42), 1 (39), 1 (1-35), 1 (37), 2 (47-74), 3-17 (28-670), 18 (842-347) BRCA1 ([id number]) 2-23 (1-1343) APPENDIX: Table 1: Genes of interest for SNVs, INDELs and CNVs ABL1 ABL2 ABRAXAS1 ACVR1 ACVR1B ACVR2A ADGRA2 AJUBA AKT1 AKT2 AKT3 AKTIP ALK [id number] AMER1 ANKRD11 APC AR* ARAF ARFRP1 ARID1A ARID1B ARID2 ARID5B ASCC3 ASPM ASXL1 ASXL2 RAN ATR ATRIP ATRX AURKA AURKB AURKC AXIN1 AXIN2 ROMAIN B2M BAP1 BARD1 BAZ2A BBC3 BCL10 BCL11A BCL2 BCL2L1 MFM1V47 BCL2L2 BCL6 BCL7A BCOR BCORL1 BCR BIRC2 BIRC3 BLM BLNK BMPR1A BRAF* BRCA1 BRCA2 BRCC3 BRD4 BRIP1 BTG1 BTG2 BTK BUB1 CALR CARD11 CASP8 CBFB CBL CCKAR CCN6 CCNA2 CCND1* CCND2* CCND3 CCNE1* CCNE2 CCR4 CCR7 CD274 CD276 CD28 CD58 CD74 CD79A CD79B CD8A CDC20 CDC27 CDC42 CDC6 CDC73 CDH1 CDK12 CDK2 CDK4* CDK6* CDK8 CDKN1A CDKN1B CDKN2A CDKN2B CDKN2C CEBPA CENPA CENPE CHAF1A CHD2 CHEK1 CHEK2 CHTF8 CIC CIITA CNOT3 COL2A1 COP1 CREBBP CRKL CRLF2 CSF1R CSF3R CTCF CTLA4 CTNNA1 CTNNB1 CUL3 CUL4A CUL4B CUX1 CXCR4 CYLD BWI1N92 DAXX RWWHW1X INGP2P3 DDB1 DDR1 DDR2 DDX3X DICER1 DIS3 DIS3L2 DLL3 DNA2 DNAJB1 DNMT1 DNMT3A DNMT3B DOT1L DUSP2 E2F3 EED EGFL7 EGFR* EGR1 EGR2 EIF1AX EIF4A2 EIF4E ELF3 ELF4 ELOC EMSY ENO1 EP300 EPCAM EPHA2 EPHA3 EPHA5 EPHA7 EPHB1 EPHB4 ERBB2* ERBB3 ERBB4 ERCC1 ERCC2 ERCC3 ERCC4 ERCC5 ERCC6 ERG ERRFI1 ESR1 ETV1 ETV4 ETV5 ETV6 EWSR1 EXO1 EZH2 FADD FAM50A FANCA FANCC FANCD2 FANCE FANCF FANCG FANCI FANCL FANCM FAS FAT1 FBXW7 FGF10 FGF14 FGF19 FGF23 FGF3 FGF4 FGF5 FGF6 FGF9 FGFR1* FGFR2* FGFR3* FGFR4 FH FLCN FLT1 FLT3 FLT4 FOXA1 FOXL2 FOXO1 FOXP1 FRS2 FTO FUBP1 FYN FZR1 GABRA6 GQDC11G GATA1 GATA2 GATA3 GATA4 GATA6 GEN1 GID4 GLI1 GNA11 GNA13 GNAQ GNAS LJZ635 GPS2 GREM1 GRIN2A GRM3 GSK3B H1-2 H1-4 H2AX H2BC5 H3-3A H3-3B H3-4 H3-5 H3C1 H3C10 H3C11 H3C12 H3C13 H3C2 H3C3 H3C4 H3C6 H3C7 H3C8 HDAC2 HDAC9 HELQ HERC2 HFM1 HGF HLA-A HLA-B HLA-C HMGA2 HNF1A HOXB13 HRAS HSD3B1 QPQ70YZ1 QGU20MA7 HUWE1 HVCN1 ICOSLG ID3 IDH1 IDH2 IFNGR1 IGF1 IGF1R IGF2 IGLL5 IKBKE IKZF1 IKZF3 IL10 IL2RG IL7R INHA INHBA INO80 INPP4A INPP4B INSR IRAK1 IRF2 IRF4 IRF8 IRS1 IRS2 ITPKB JAK1 JAK2 JAK3 BRYN KAT6A KDM3B KDM5A KDM5C KDM6A KDR KEAP1 TRELL KIT* KLF2 KLF4 KLHL6 KMT2A KMT2B KMT2C KMT2D KNSTRN KRAS* LATS1 LATS2 LCK LIG4 LMO1 LRP1B LTB LTK RAMONA MAD2L2 MAGOH MALT1 MAP2K1 MAP2K2 MAP2K4 MAP2K7 MAP3K1 VRG9X67 XUX3F93 MAP3K4 MAPK1 MAPK3 MAPK8 MAX MCL1 MDC1 MDM2 MDM4 MED12 MEF2B MEN1 MERTK MET* MFHAS1 MGA MGMT MITF MLH1 MLH3 MPL MRE11 MSH2 MSH3 MSH6 MST1 MST1R MTAP MTOR MUSK MUTYH MXD4 MYB MYBL1 MYC* MYCL MYCN MYD88 MYOD1 NBN NCOA3 NCOR1 NEGR1 NF1 NF2 NFE2L2 NFKB2 NFKBIA NFKBIE NGFR NHEJ1 NKX2-1 NKX3-1 NOTCH1 NOTCH2 NOTCH3 NOTCH4 NPM1 NRAS NSD1 NSD2 NSD3 NT5C2 NTHL1 NTRK1 NTRK2 NTRK3 NUP93 NUTM1 NXF1 P2RY8 PAK1 PAK3 PAK5 PALB2 PARP1 PARP2 PARP3 PARP4 PARPBP PAX5 PAXX PBRM1 PCBP1 PCNA PDCD1 NFEO9DX2 PDGFB PDGFRA* PDGFRB PDK1 PER1 PGD PGR PHF6 PHOX2B YID8Y7U LWZ6D8Q PIK3C3 PIK3CA* PIK3CB PIK3CD PIK3CG PIK3R1 PIK3R2 PIK3R3 PIM1 PLCG1 PLCG2 PLEKHG5 PLK2 PMAIP1 PML PMS1 PMS2 PNKP PNRC1 POLA1 POLD1 POLE POLQ POT1 PPARG PPM1D FIQ4P5L YOO6R3X YMT1V3S PPP4R4 PPP6C PRAME PRC1 PRDM1 PREX2 PRG4 MRNMW9P PRKCI PRKD1 PRKDC PRKN PTCH1 PTEN PTK2 PTPN1 PTPN11 PTPRB PTPRD PTPRS PTPRT QKI RAB35 RAC1 RAD17 RAD21 RAD50 RAD51 [id number] RAD51B RAD51C RAD51D RAD52 RAD54L RAF1* ZACARIAS RASA1 RASSF1 RB1 RBM10 RBMX RECQL4 REL RELN REST RET REV3L RFC1 RFC2 RFC3 RFC4 RFC5 RFTN1 RHEB RHOA RICTOR RIF1 RIPK1 RIT1 RMI1 RMI2 RNF43 ROR1 ROS1 RPA1 RPA2 RPA3 RPA4 RPS15 NIC5GO5 IOE0NY8 CEE7UD2 RPTOR RRAGC RRAS RSPO1 RSPO2 RUNX1 QSKN5V8 RYBP RYK S1PR1 S1PR2 SAMHD1 SDHA SDHAF2 SDHB SDHC SDHD SESN1 SETBP1 SETD2 SETDB1 SF3B1 SGK1 SH2B3 SH2D1A SHLD1 SHLD2 SHLD3 SHPRH SHQ1 PIS84F3 SLIT2 SLX4 SMAD2 SMAD3 SMAD4 SMARCA2 SMARCA4 SMARCAD1 SMARCB1 SMARCD1 SMC1A SMC3 SMC5 SMC6 SMO SNCAIP SOCS1 SOS1 SOX10 SOX11 SOX17 SOX2 SOX9 SP140 SPEN SPOP SRC SRSF2 SSBP1 STAG2 STAT3 STAT4 STAT5A STAT5B STAT6 STK11 STK19 STK40 SUFU SUZ12 SYK TBC1D4 MGH8HP5 TBX3 TCF3 TCF7L2 LAURA TENT5C TERC TERT^ TET1 TET2 TFE3 TFEB TGFB1 TGFBR1 TGFBR2 WOHD990 HOEG97S TMPRSS2 TNF TNFAIP3 OKULSU40 TOP1 TOP2A TOP3A TOPBP1 TP53 AW24PG6 TP53I3 TP63 TRAF2 TRAF3 TRAF6 TRAF7 UZKOZF55 TRIM28 TRIM37 TSC1 TSC2 TSHR TSPAN31 TTK TYRO3 U2AF1 UBR5 VAV1 VEGFA VHL VTCN1 WRN WT1 XIAP XPO1 XPO5 XRCC2 XRCC3 XRCC4 XRCC5 XRCC6 YAP1 YES1 ZFAT ZFHX3 ZMYM3 NAC748 LCM306 ZRSR2 *Gene included for CNV reporting ^ Includes promoter region ncRNA Gene Table 2. Genes with select intronic regions for the detection of DNA-based gene rearrangements ALK introns: 18-19 BRCA2 introns: 2 ETV4 introns: 5-6 EZR introns: 9-11 KIT introns: 16 MYB introns: 14 NTRK2 introns: 12 ZACARIAS introns: 2 SDC4 introns: 2 BCR introns: 7-10 CD74 introns: 6-8 ETV5 introns: 6-7 FGFR1 introns: 1,5,17 KMT2A introns: 6-11 MYC introns: 1 NUTM1 introns: 1 RET introns: 7-11 GBR60U2 introns: 4 BRAF introns: 7-10 EGFR introns: 7,15,24-27 ETV6 introns: 5-6 FGFR2 introns: 1,17 MET* introns 13,14 NOTCH2 introns: 26 PDGFRA introns: 7,9,11 ROS1 introns: 31-35 TMPRSS2 introns: 1-3 BRCA1 introns: 2,7-8,12,16,19-20 EML4 introns: 6,13 EWSR1 introns: 7-13 FGFR3 introns: 17 MSH2 introns: 5 NTRK1 introns: 8-10 RAF1 introns: 4-8 RSPO2 introns: 1 *Targeted for MET exon 14 skipping assessment DISCLAIMER: This test was developed and its performance characteristics determined by the Molecular Diagnostic Laboratory (MDL) at the .[facility]. It has not been cleared by the U.S. Food and Drug Administration. However, such approval is not required for clinical implementation, and the test results on the ordered genes have been shown to be clinically useful. This laboratory is CAP accredited and CLIA certified to perform high complexity molecular testing for clinical purposes. 12/27/2023 2:30 PM [employer] [facility] Pathologist Signature . 12/27/2023 2:30 PM [employer] [facility] Blood Peripheral blood specimen / Unknown Venipuncture / Unknown 12/06/2023 11:49 AM [employer] 12/06/2023 12:03 PM [employer] Mandi SUTTON [facility] Molecular Diagnostics Laboratory [address] [place] [address] * (ABNORMAL) AFP (12/06/2023 11:49 AM [employer]) Only the most recent of2 resultswithin the time period is included. Alpha Fetoprotein (AFP) Tumor Marker 86.8(H) <=8.3 ng/mL 12/06/2023 1:01 PM [employer] [facility] Blood Peripheral blood specimen / Unknown Venipuncture / Unknown 12/06/2023 11:49 AM [employer] 12/06/2023 12:03 PM [employer] Narrative [facility] - 12/06/2023 1:01 PM [employer] Results greater than 45,875.00 ng/mL may not be reliable due to matrix effect with extended dilution as it exceeds the production assembly operator's recommended limit. Caution should be exercised when interpreting such values and done in conjunction with clinical context. This test is measured by electrochemiluminescence immunoassay on [employer] immunoassay analyzers. Results obtained in different methods are not interchangeable. [facility] LAB BLOOD ORDERABLES Performing Organization Address [facility] de Phone Number [facility] Unless otherwise noted, all lab tests performed by: Division of Pathology and Laboratory Medicine [address] [place] [id number] * (ABNORMAL) CA 125 (12/06/2023 11:49 AM [employer]) Cancer Antigen 125 181.0(H) <=38.0 U/mL 12/06/2023 1:01 PM [employer] [facility] Blood Peripheral blood specimen / Unknown Venipuncture / Unknown 12/06/2023 11:49 AM [employer] 12/06/2023 12:03 PM [employer] Narrative [facility] - 12/06/2023 1:01 PM [employer] Results greater than 11,500.0 U/mL may not be reliable due to matrix effect with extended dilution as it exceeds the production assembly operator's recommended limit. Caution should be exercised when interpreting such values and done in conjunction with clinical context. This test is measured by electrochemiluminescence immunoassay on Emanuel Jorge immunoassay analyzers. Results obtained in different methods are not interchangeable. Reference intervals are not available for male patients. Results should be interpreted in conjunction with clinical context. Mandi Bailey [place] LAB BLOOD ORDERABLES Performing Organization Address [facility] de Phone Number [facility] Unless otherwise noted, all lab tests performed by: Division of Pathology and Laboratory Medicine [address] [place] [id number] * CEA (12/06/2023 11:49 AM [employer]) Only the most recent of2 resultswithin the time period is included. Carcinoembryonic Antigen 2.0 <=3.8 ng/mL 12/06/2023 1:00 PM [employer] [facility] Blood Peripheral blood specimen / Unknown Venipuncture / Unknown 12/06/2023 11:49 AM [employer] 12/06/2023 12:03 PM [employer] Narrative [facility] - 12/06/2023 1:00 PM [employer] Reference Ranges (age 20-69 years): Non-smoker: 0.0 - 3.8 ng/mL Smoker: 0.0 - 5.5 ng/mL This test is measured by electrochemiluminescence immunoassay on Emanuel Jorge immunoassay analyzers. Results obtained in different methods are not interchangeable. Mandi LUNA LAB BLOOD ORDERABLES [facility] Unless otherwise noted, all lab tests performed by: Division of Pathology and Laboratory Medicine [address] [place] [phone] * IR US GUIDED BIOPSY LIVER (11/14/2023 1:33 PM [employer]) Anatomical Region Laterality Modality Abdomen/Pelvis, Organ (liver/spleen/kidney) Ultrasound, Ultrasound Narrative 11/15/2023 9:21 AM [employer] Table formatting from the original result was not included. Date of Procedure: 11/14/23 Attending Physician: Good Broussard MD Obiee Consultant: Verito Mcgowan Pre Procedure Diagnosis: Liver mass Post Procedure Diagnosis: Unchanged Indication: New mass / nodule for tissue diagnosis Protocol Number: N/A Title of Procedure: Percutaneous Ultrasound-Guided Biopsy Operative Findings: Percutaneous image-guided biopsy of 2.8 cm right liver lesion . Consent: The procedure, risks, indications and alternatives were explained. All questions were answered and informed consent was obtained. I have reviewed the history and physical dictated by the mid-level practitioner / fellow. Sedation/Anesthesia: Moderate sedation for pain control and anxiety was administered by a dedicated nurse under my supervision. There was continuous monitoring of oxygen saturation, heart rate and intermittent monitoring of blood pressure during the procedure. Medication given was midazolam and fentanyl. I was present for the administration of the medications indicated above. Procedure Events Event Event Time Sedation Start 11/14/2023 1:11 PM Sedation End 11/14/2023 1:24 PM Procedure in Detail: A time out was performed prior to the start of the procedure and the correct patient, procedure, presence of consent, site, and side were confirmed with all members of the team. With the patient in the supine position, the skin overlying the area of interest was prepped and draped in the usual sterile fashion. Lidocaine 1% was used for local anesthesia. Using an anterior approach under Ultrasound image-guidance, a 19 gauge needle was advanced down to the right liver lesion . An image was obtained and placed into the medical record. Samples were obtained for evaluation. Sampling: Core Biopsy: A 20 gauge needle used to obtain samples for surgical pathology evaluation. Total number of samples: 3 Specimens Disposition: Diagnostic Biopsy: The biopsy samples were submitted to pathology. Additional Comments: None Estimated Blood Loss: Minimal Immediate Complications: None Disposition: PACU Plan: No follow-up with Interventional Radiology required. This draft note was prepared by the NICOLE involved in the case; it was then reviewed and finalized by the attending physician. I certify my physical presence in the procedure/control room at the time of the procedure, and I, the attending physician, personally performed the critical portion of the procedure. I personally reviewed the image(s) and the NICOLE's interpretation and agree with the written report. Vasyl Seymour ANTHROPOMETRIST IMG IR ORDERABLES * MDA CP PLATELET COUNT (11/11/2023 12:02 PM [employer]) Pathologist [facility] Platelet 206 160 - 397 K/uL 11/11/2023 12:07 PM [employer] [facility] Mean Platelet Volume 10.6 9.1 - 12.6 fL 11/11/2023 12:07 PM [employer] [facility] Blood Peripheral blood specimen / Unknown Venipuncture / Unknown 11/11/2023 12:02 PM [employer] 11/11/2023 12:03 PM [employer] Deb LUNA LAB BLOOD ORDERABLES [facility] [address] [place] [address] * Confirm ABORh (11/11/2023 12:01 PM [employer]) ABORh Confirm A POS 11/11/2023 11:58 AM [employer] [facility]SF[facility] Blood Peripheral blood specimen / Unknown Venipuncture / Unknown 11/11/2023 12:01 PM [employer] 11/11/2023 12:04 PM [employer] Deb LUNA BLOOD BANK TEST ORDVaishali ESPINOSA [facility] - TRANSFUSION SERVICES [facility] [id number] [place] [address] * CT Chest with Contrast (10/27/2023 11:28 AM [employer]) Anatomical Region Laterality Modality Chest Computed Tomogra phy 10/27/2023 2:36 PM [employer] Impressions 10/27/2023 4:13 PM [employer] 1. Bilateral lung metastatic nodules. 2. Supraclavicular, intrathoracic and upper abdominal adenopathy. 3. Multiple liver metastases. ACTIONABLE ITEMS/RECOMMENDATIONS: See Impression I personally reviewed these image(s) along with the resident's/fellow's interpretations, certify that if a procedure was performed I was physically present, and agree with the final report. Narrative 10/27/2023 4:13 PM [employer] FULL RESULT: Examination: CT CHEST W CONTRAST on 10/27/2023 11:28 AM. Clinical History: Pulmonary nodules. Indication: Lung cancer screening follow-up of prior abnormal screen, pulmonary nodules. The patient is a 63-year-old woman with ongoing tobacco history with multiple liver masses. Comparison: Correlation with abdomen MRI from 10/25/2023 Technique: CT of the chest is performed with intravenous contrast Findings: Lungs/Airways/Pleura: The central airways are patent. No pleural effusion and no pneumothorax. There are numerous bilateral randomly distributed lung nodules. * A right upper lobe nodule on series 10 image 78 measures 12 mm. * A right middle lobe nodule measures 11 mm on image 102. * A right lower lobe nodule measures 15 mm on image 97. * A left upper lobe nodule on image 33 measures 10 mm. * A left lower lobe nodule measures 11 mm on image 123. Neck/Mediastinum/Nodes/Heart: There are suspicious bilateral supraclavicular lymph nodes measuring up to 9 mm in short axis on the left on series 3 image 13. Suspicious bilateral upper paratracheal lymph nodes with necrotic components on the left measures 11 mm in short axis on image 26. Enlarged periaortic lymph node on image 60 measures 15 mm. Enlarged right lower paratracheal measures 14 mm on image 61. Paraesophageal lymph node on image 97 measures 9 mm. Enlarged hilar lymph nodes measures 2.2 cm. The main pulmonary trunk and descending thoracic aorta are normal in diameter mild coronary artery calcifications. The heart is normal in size. No pericardial effusion. Upper abdomen: There are multiple hepatic masses are better characterized on the MRI from 10/25/2023. Portacaval adenopathy, periaortic adenopathy and gastrohepatic adenopathy. Retrocrural adenopathy measuring up to 13 mm in short axis on series 3 image 134. Nodular thickening of the adrenal glands especially on the left is stable from the most recent abdomen MRI. Multiple renal cysts and hypodensities too small to characterize. Mild nodularity of the hepatic contour. Bones/Soft Tissues: No suspicious skeletal lesions. Degenerative endplate changes at the lower cervical spine. Procedure Note Chito Hill MD - 10/27/2023 FULL RESULT: Examination: CT CHEST W CONTRAST on 10/27/2023 11:28 AM. Clinical History: Pulmonary nodules. Indication: Lung cancer screening follow-up of prior abnormal screen,pulmonary nodules. The patient is a 63-year-old woman with ongoing tobaccohistory with multiple liver masses. Comparison: Correlation with abdomen MRI from 10/25/2023 Technique: CT of the chest is performed with intravenous contrast Findings: Lungs/Airways/Pleura: The central airways are patent. No pleural effusionand no pneumothorax. There are numerous bilateral randomly distributed lung nodules. * A right upper lobe nodule on series 10 image 78 measures 12 mm. * A right middle lobe nodule measures 11 mm on image 102. * A right lower lobe nodule measures 15 mm on image 97. * A left upper lobe nodule on image 33 measures 10 mm. * A left lower lobe nodule measures 11 mm on image 123. Neck/Mediastinum/Nodes/Heart: There are suspicious bilateralsupraclavicular lymph nodes measuring up to 9 mm in short axis on the lefton series 3 image 13. Suspicious bilateral upper paratracheal lymph nodeswith necrotic components on the left measures 11 mm in short axis on image26. Enlarged periaortic lymph node on image 60 measures 15 mm. Enlargedright lower paratracheal measures 14 mm on image 61. Paraesophageal lymphnode on image 97 measures 9 mm. Enlarged hilar lymph nodes measures 2.2cm. The main pulmonary trunk and descending thoracic aorta are normal indiameter mild coronary artery calcifications. The heart is normal in size.No pericardial effusion. Upper abdomen: There are multiple hepatic masses are better characterizedon the MRI from 10/25/2023. Portacaval adenopathy, periaortic adenopathyand gastrohepatic adenopathy. Retrocrural adenopathy measuring up to 13 mmin short axis on series 3 image 134. Nodular thickening of the adrenalglands especially on the left is stable from the most recent abdomen MRI.Multiple renal cysts and hypodensities too small to characterize. Mildnodularity of the hepatic contour. Bones/Soft Tissues: No suspicious skeletal lesions. Degenerative endplatechanges at the lower cervical spine. IMPRESSION: 1. Bilateral lung metastatic nodules. 2. Supraclavicular, intrathoracic and upper abdominal adenopathy. 3. Multiple liver metastases. ACTIONABLE ITEMS/RECOMMENDATIONS: See Impression I personally reviewed these image(s) along with the resident's/fellow'sinterpretations, certify that if a procedure was performed I wasphysically present, and agree with the final report. Vasyl Seymour APRN IMG CT ORDERABLES * Glucose, Random (10/26/2023 12:41 PM [employer]) Glucose Random 126 70 - 199 mg/dL 10/26/2023 1:54 PM [employer] [facility] Blood Peripheral blood specimen / Unknown Venipuncture / Unknown 10/26/2023 12:41 PM [employer] 10/26/2023 12:45 PM [employer] Narrative [facility] - 10/26/2023 1:54 PM [employer] Effective 06/23/16, the glucose reference intervals have been updated based on [place] [employer] guidelines (Standards of Medical Care in Diabetes 2016. Diabetes Care 2016; 39: S13-S22). Fasting blood glucose: Normal: 70-99 mg/dL Impaired fasting glucose (increased risk for diabetes or pre-diabetes): 100-125 mg/dL Diabetes mellitus: >/=126 mg/dL Random blood glucose: Normal: 70-199 mg/dL Note: Random glucose >100 mg/dL is associated with increased risk for diabetes Vasyl Seymour APRN LAB BLOOD ORDERABL ES Performing Organization Address [facility] Co de Phone Number [facility] Unless otherwise noted, all lab tests performed by: Division of Pathology and Laboratory Medicine [address] [place] [phone] * (ABNORMAL) Hepatitis C Virus Antibody (10/26/2023 12:41 PM [employer]) [facility] HCVAb. Reactive(A ) Non Reactive 10/26/2023 2:25 PM [employer] [facility] Blood Peripheral blood specimen / Unknown Venipuncture / Unknown 10/26/2023 12:41 PM [employer] 10/26/2023 12:45 PM [employer] Narrative [facility] - 10/26/2023 2:25 PM [employer] Antibody detection in the immunocompromised and immunosuppressed population may be delayed or absent entirely. Therefore serial testing, correlation with other clinical findings, and supplemental testing (if available) should be taken into consideration when interpreting the results. Vasyl Seymour APRN LAB BLOOD ORDERABL ES Performing Organization Address [facility] de Phone Number [facility] Unless otherwise noted, all lab tests performed by: Division of Pathology and Laboratory Medicine [address] [place] [phone] * Hepatitis B Total Ig Core Ab (SCREENING) (anti-HBc total Ig; HBcAb total Ig) (10/26/2023 12:41 PM [employer]) [facility] HBcAb. Non Reactive Non Reactive 10/26/2023 2:24 PM [employer] [facility] Blood Peripheral blood specimen / Unknown Venipuncture / Unknown 10/26/2023 12:41 PM [employer] 10/26/2023 12:45 PM [employer] Vasyl Seymour APRN LAB BLOOD ORDERABL ES Performing Organization Address [facility] Co de Phone Number [facility] Unless otherwise noted, all lab tests performed by: Division of Pathology and Laboratory Medicine [address] [place] [phone] * Hepatitis B Surface Antibody (10/26/2023 12:41 PM [employer]) [facility] HBsAb Non Reactive 10/26/2023 2:24 PM [employer] [facility] Blood Peripheral blood specimen / Unknown Venipuncture / Unknown 10/26/2023 12:41 PM [employer] 10/26/2023 12:45 PM [employer] Narrative [facility] - 10/26/2023 2:24 PM [employer] Vaccinated individual: Reactive Unvaccinated individual: Non-Reactive Vasyl Seymour APRN LAB BLOOD ORDERABL ES Performing Organization Address [facility] Co de Phone Number [facility] Unless otherwise noted, all lab tests performed by: Division of Pathology and Laboratory Medicine [address] [place] [phone] * Hepatitis B Surface Ag (10/26/2023 12:41 PM [employer]) [facility] HBsAg. Non Reactive Non Reactive 10/26/2023 2:24 PM [employer] [facility] Blood Peripheral blood specimen / Unknown Venipuncture / Unknown 10/26/2023 12:41 PM [employer] 10/26/2023 12:45 PM [employer] Vasyl Seymour APRN LAB BLOOD ORDERABL ES Performing Organization Address City/[facility]/ZIP Co de Phone Number [facility] Unless otherwise noted, all lab tests performed by: Division of Pathology and Laboratory Medicine [address] [place] [phone] * BUN (10/26/2023 12:41 PM [employer]) [facility] BUN 19 6 - 23 mg/dL 10/26/2023 1:54 PM [employer] [facility] Blood Peripheral blood specimen / Unknown Venipuncture / Unknown 10/26/2023 12:41 PM [employer] 10/26/2023 12:45 PM [employer] Vasyl Seymour ANTHROPOMETRIST LAB BLOOD ORDERABL ES [facility] Unless otherwise noted, all lab tests performed by: Division of Pathology and Laboratory Medicine [address] [place] [phone] * (ABNORMAL) Creatinine (10/26/2023 12:41 PM [employer]) Creatinine 1.15(H) 0.51 - 0.95 mg/dL 10/26/2023 1:54 PM [employer] [facility] eGFR 53(L) >=60 mL/min/1. 73 sq. m 10/26/2023 1:54 PM [employer] [facility] Comment: The eGFRcr is calculated with the 2020 CKD-EPI creatinine equation using creatinine, patient's age, and sex for adults 18 years of age and older. Other factors, especially muscle mass, may affect accuracy and need to be considered. According to the Kidney Disease: Improving Global Outcomes (KDIGO) CKD Work Group 2012 Clinical Practice Guideline, chronic kidney disease (CKD) is defined as the abnormalities of kidney structure or function, present for more than 3 months, with implications for health. CKD should be classified by cause, GFR category, and albuminuria category. KDIGO guidelines provide the following GFR categories. Stage / Description / GFR mL/min/1.73 m2: G1* / Normal or high / >= 90 G2* / Mildly decreased / 60-89 G3a / Mildly to moderately decreased / 45-59 G3b / Moderately to severely decreased / 30-44 G4 / Severely decreased / 15-29 G5 / Kidney failure / <15 *In the absence of evidence of kidney damage, neither G1 nor G2 fulfill criteria for CKD. Blood Peripheral blood specimen / Unknown Venipuncture / Unknown 10/26/2023 12:41 PM [employer] 10/26/2023 12:45 PM [employer] Vasyl Seymour APRN LAB BLOOD ORDERABL ES [facility] Unless otherwise noted, all lab tests performed by: Division of Pathology and Laboratory Medicine [address] [place] [phone] * (ABNORMAL) Calcium Level (10/26/2023 12:41 PM [employer]) Calcium Level Total 11.1(H) 8.2 - 10.2 mg/dL 10/26/2023 1:54 PM [employer] [facility] Blood Peripheral blood specimen / Unknown Venipuncture / Unknown 10/26/2023 12:41 PM [employer] 10/26/2023 12:45 PM [employer] Vasyl Seymour ANTHROPOMETRIST LAB BLOOD ORDERABL ES Performing Organization Address City/[facility]/ZIP Co de Phone Number [facility] Unless otherwise noted, all lab tests performed by: Division of Pathology and Laboratory Medicine [address] [place] [phone] * EKG, 12-Lead (Scheduled) (10/26/2023) Vasyl Seymour APRN ECG ORDERABLES Performing Organization Address [facility] Co de Phone Number [facility]ECG * MRI Abdomen with and without Contrast (10/25/2023 4:49 PM [employer]) Anatomical Region Laterality Modality Abdomen Magnetic Resonan ce 10/26/2023 9:37 AM [employer] Impressions 10/26/2023 11:48 AM [employer] 1. Multiple masses in the liver in keeping with malignancy. The imaging features are nonspecific. There is nonvisualization of the right portal vein and branches. There is nonvisualization of the hepatic veins. 2. Findings in the liver may suggestive of cirrhosis. 3. Enlarged lymph nodes are probably malignant. 4. Pulmonary nodules can be evaluated with CT chest abdomen. Please see full report ACTIONABLE ITEMS/RECOMMENDATIONS: See impression. Narrative 10/26/2023 11:48 AM [employer] Examination: MRI ABDOMEN W WO CONTRAST, 10/25/2023 4:49 PM Clinical History: Liver mass Indication: liver lesion Comparison: CT 10/05/2023 Technique: MRI ABDOMEN W WO CONTRAST ABDOMEN AND PELVIS FINDINGS: At the lung bases there are pulmonary nodules that are probably related to metastatic disease. Dedicated CT chest to be consider. Hepatobiliary: There are multiple masses in the liver in keeping with malignancy. Certified Nursing Assistant examples: There is a 1.9 cm low intensity mass on the T1-weighted in segment 8/4 of the liver on image 18 series 4. There is a 2.8 cm low intensity mass on image 28. There is a irregular infiltrating 8mm mass in segment 7/1 and possible 4 of the liver. There is a 1.5 cm segment 6 lesion on image 38. There is a 5.5 cm segment 6 liver mass on image 49. The masses are poorly defined on the T2 and diffusion weighted imaging and or postcontrast series. There is heterogeneous peripheral enhancement of these masses. There is a indeterminate 7 mm hypervascular lesion in segment 8 of the liver. This is nonspecific and cannot exclude metastatic disease. There is relative hypertrophy of the left liver The right portal vein is not visualized. The middle right and left hepatic veins are not visualized. There is a less than 5 mm gallstone. See series 6 image 73. Spleen: There is no splenomegaly. Pancreas: There is no pancreatic mass. Adrenal Glands: There is no adrenal mass. There is thickening of the adrenal glands suggestive of hyperplasia. There is signal drop on the out of phase series. This may represent an adenoma. Kidneys, Ureters, Bladder: There is no hydronephrosis. There are renal cysts. Gastrointestinal Tract: There is no bowel obstruction. Lymph Nodes: There are multiple lymph nodes in the abdomen are probably malignant. Certified Nursing Assistant examples: There is a 2.4 x 2 cm portal caval node on series 5 image 28. There is a 1.0 x 1.4 cm periportal node image 24. There is a 1.1 x 1.8 cm retrocaval node on image 23. There is a 1.6 x 1.4 cm retrocrural node on image 17. Peritoneum/Retroperitoneum: There is a 5 mm extraperitoneal nodule in the lateral right abdomen. This may be related to metastatic disease. This can be seen on series 4 image 64. There is perihepatic fluid. There is perinephric fluid. This is probably due to reflux. Lines and Tubes: None MUSCULOSKELETAL FINDINGS: There is no suspicious bone lesion. Procedure Note Jer Suh MD - 10/26/2023 Examination: MRI ABDOMEN W WO CONTRAST, 10/25/2023 4:49 PM Clinical History: Liver mass Indication: liver lesion Comparison: CT 10/05/2023 Technique: MRI ABDOMEN W WO CONTRAST ABDOMEN AND PELVIS FINDINGS: At the lung bases there are pulmonary nodules that are probably related tometastatic disease. Dedicated CT chest to be consider. Hepatobiliary: There are multiple masses in the liver in keeping with malignancy. Certified Nursing Assistant examples: There is a 1.9 cm low intensity mass on the T1-weighted in segment 8/4 ofthe liver on image 18 series 4. There is a 2.8 cm low intensity mass on image 28. There is a irregular infiltrating 8mm mass in segment 7/1 and possible 4of the liver. There is a 1.5 cm segment 6 lesion on image 38. There is a 5.5 cm segment 6 liver mass on image 49. The masses are poorly defined on the T2 and diffusion weighted imaging andor postcontrast series. There is heterogeneous peripheral enhancement of these masses. There is a indeterminate 7 mm hypervascular lesion in segment 8 of theliver. This is nonspecific and cannot exclude metastatic disease. There is relative hypertrophy of the left liver The right portal vein is not visualized. The middle right and left hepatic veins are not visualized. There is a less than 5 mm gallstone. See series 6 image 73. Spleen: There is no splenomegaly. Pancreas: There is no pancreatic mass. Adrenal Glands: There is no adrenal mass. There is thickening of theadrenal glands suggestive of hyperplasia. There is signal drop on the outof phase series. This may represent an adenoma. Kidneys, Ureters, Bladder: There is no hydronephrosis. There are renalcysts. Gastrointestinal Tract: There is no bowel obstruction. Lymph Nodes: There are multiple lymph nodes in the abdomen are probably malignant. Certified Nursing Assistant examples: There is a 2.4 x 2 cm portal caval node on series 5 image 28. There is a 1.0 x 1.4 cm periportal node image 24. There is a 1.1 x 1.8 cm retrocaval node on image 23. There is a 1.6 x 1.4 cm retrocrural node on image 17. Peritoneum/Retroperitoneum: There is a 5 mm extraperitoneal nodule in the lateral right abdomen. Thismay be related to metastatic disease. This can be seen on series 4 image64. There is perihepatic fluid. There is perinephric fluid. This is probably due to reflux. Lines and Tubes: None MUSCULOSKELETAL FINDINGS: There is no suspicious bone lesion. IMPRESSION: 1. Multiple masses in the liver in keeping with malignancy. The imagingfeatures are nonspecific. There is nonvisualization of the right portalvein and branches. There is nonvisualization of the hepatic veins. 2. Findings in the liver may suggestive of cirrhosis. 3. Enlarged lymph nodes are probably malignant. 4. Pulmonary nodules can be evaluated with CT chest abdomen. Please see full report ACTIONABLE ITEMS/RECOMMENDATIONS: See impression. Dinorahradha OwenDawn CORNEL IMG MRI ORDERABLES * [facility] CT Abdomen and Pelvis (10/05/2023 1:23 PM [employer]) Narrative Systemgenerated, Documentation - 10/25/2023 1:23 PM [employer] Study acquired at another institution. For comparison only. No [facility] originated interpretation requested or available. Ryanne Rangel MD IMG OUTSIDE IMAGE ORDERABLES * [facility] Nuclear Diagnostic Exam (09/02/2023 6:27 PM CDT) Narrative Systemgenerated, Documentation - 11/01/2023 6:27 PM [employer] Study acquired at another institution. For comparison only. No [facility] originated interpretation requested or available. Ryanne Rangel MD IMG OUTSIDE IMAGE ORDERABLES after 02/23/2023 Advance Directives Latest Code Status on File Code Status Date Activated Date Inactivated Comments Full Code 01/30/2024 3:54 PM 02/22/2024 7:34 PM Code Status History Code Status Date Activated Date Inactivated Comments Full Code 01/24/2024 9:28 PM 01/30/2024 3:54 PM Care Teams Generator Rebuilder Relationship Specialty Start Date End Date Belle Goncalves [address] [place] [id number] PCP - External Primary Care Provider Nurse Practitioner 10/14/23 Ryanne Rangel MD [address] [place] [id number] PCP - General Internal Medicine 10/17/23 12/18/23 Shimon Florian MD [address] [place] [id number] PCP - General Gastrointestinal Medical Oncology 12/26/23 Shimon Florian MD [address] [place] [address] [id number] Physician Gastrointestinal Medical Oncology 12/06/23 Mark Anthony Baptiste APRN [address] [place] [address] [id number] Nurse Practitioner Interventional Radiology 12/14/23 Mandi Bailey PA [address] [place] [address] [phone] Physician Obiee Consultant Gastrointestinal Medical Oncology 12/19/23 David Ortez MD [address] [place] [address] [id number] Consulting Physician Radiation Oncology 12/23/23 Hank Giles MD [address] [place] [address] [id number] Consulting Physician Orthopaedic Oncology 12/26/23 Huong Belcher PA [address] [place] [address] [phone] Physician Obiee Consultant Radiology 12/29/23 Ramila Jimenez DDS [address] [place] [address] [phone] Consulting Physician Dental Oncology 12/27/23 Cammie Rodriguez MD [address] [place] [address] [phone] Consulting Physician Infectious Diseases 01/04/24 Raudel Tucker MD [address] [place] [address] [id number] Consulting Physician Nephrology 01/17/24
[2024-02-24] MEDS ORDERED: HYDROMORPHONE HCL 0.5 MG/0.5 ML INJ ONE (00:55)
[2024-02-24] MEDS ORDERED: ONDANSETRON 4 MG/2 ML VIAL ONE ×2 (00:56→03:56)
[2024-02-24 01:17] LABS: Absolute Basophils 0.1 K/uL (0-0.5); Absolute Lymphocytes (CBC) 0.4 K/uL (0.7-4.9); Absolute Monocytes 0.6 K/uL (0.1-1.3); Absolute Neutrophil 11.1 K/uL (1.8-8.0); Basophils % 0.5 % (0-1.3); Eosinophils % 0.2 % (0-4.4); Hematocrit 31.2 % (36.0-45.0); Hemoglobin 10.3 g/dL (12.0-15.0); Lymphocytes % 3.1 % (15.3-44.8); MCH 29.3 pg (27.0-35.0); MCHC 33.2 g/dL (32.0-36.0); MCV 88.5 fL (80-100); MPV 8.8 fL (7.6-11.3); Neutrophils % 91.2 % (41.7-73.7); Platelets 146 thou/uL (152-406); RBC Red Blood Cell Count 3.52 M/uL (3.86-4.86); Red Cell Distribution Width 16.4 % (12.1-15.2)
[2024-02-24 01:26] LABS: PT Prothrombin Time 12.2 SECONDS (9.5-12.5); PTT, Activated Partial Thromb 28.5 SECONDS (24.3-36.9); Protime INR 1.11
[2024-02-24 01:33] LABS: Albumin 2.4 g/dL (3.4-5.0); Albumin/Globulin Ratio 0.8 (1.1-1.8); Anion Gap 11.3 mEq/L (5.0-15.0); Potassium 3.3 mEq/L (3.5-5.1); Protein, Total 5.4 g/dL (6.4-8.2)
[2024-02-24] MEDS ORDERED: HYDROMORPHONE HCL 1 MG/ML INJ ONE (03:57)
[2024-02-24] MEDS ORDERED: FUROSEMIDE 40 MG TABLET ONE (04:42)
--- NOTE | 2024-02-24 04:42 | EDPHYS ---
Physician Documentation [facility] Name: Dodie Kitchen Age: 63 yrs Sex: Female : 1960 Arrival Date: 02/23/2024 Time: 23:19 Bed 5 Private MD: ED Physician Villa Mohan HPI: 02/22 23:59 This 63 yrs old Female presents to ER via EMS with complaints of Abdominal Pain. 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 Patient had her right acetabulum surgically removed a few weeks ago secondary to bone mets and was discharged to rehab at [facility] 2 days ago. States that her legs have become increasingly swollen over the past few weeks. States that this abdominal pain came out of nowhere this evening. She does feel nauseous but has not vomited and has not had any episodes of diarrhea or recorded fever. States this pain feels different than her cancer pain. She was undergoing chemotherapy with [facility] but had to put it on hold for her surgery. Historical: - Allergies: 23:35 LUCINA INHIBITORS; kd3 - Immunization history:: Adult Immunizations up to date. - Social history:: Smoking status: unknown. ROS: 23:59 Constitutional: Negative for fever, chills, and weight loss, sb4 23:59 Cardiovascular: Positive for edema, 23:59 Abdomen/GI: Positive for abdominal pain, nausea, 23:59 All other systems are negative, Exam: 23:59 Head/Face: Normocephalic, atraumatic. Eyes: Extra-ocular motions intact. Periorbital sb4 areas with no swelling, redness, or edema. Cardiovascular: Regular rate and rhythm with a normal S1 and S2. Respiratory: Lungs have equal breath sounds bilaterally, clear to auscultation and percussion. No rales, rhonchi or wheezes noted. No increased work of breathing, no retractions or nasal flaring. Abdomen/GI: Soft, non-tender, no distension. MS/ Extremity: Pulses equal, no cyanosis. Neurovascular intact. Full, normal range of motion. 23:59 Constitutional: The patient appears alert, awake, obviously ill, in obvious pain, uncomfortable, 23:59 Cardiovascular: Edema: 3+ edema to level of left midcalf, left ankle, left foot, left toes, right midcalf, right ankle, right foot and right toes, 23:59 Skin: Appearance: Color: jaundiced, Vital Signs: 23:51 BP 164 / 85; Pulse 72; Resp 16; Temp 97.9(O); Pulse Ox 98% on R/A; Weight 52.16 kg; kd3 Height 5 ft. 3 in. ; Pain 8/; 02/23 00:41 BP 161 / 74; Pulse 79; Resp 17; Pulse Ox 99% on R/A; kd3 01:03 BP 160 / 79; Pulse 79; Resp 16; Pulse Ox 98% on R/A; kd3 01:10 BP 159 / 72; kd3 02:00 BP 175 / 68; Pulse 80; Resp 18; Pulse Ox 100% on R/A; Pain 8/10; pf1 03:00 BP 169 / 72; Pulse 75; Resp 16; Pulse Ox 99% on R/A; pf1 04:00 BP 181 / 75; Pulse 70; Resp 16; Pulse Ox 98% on R/A; pf1 05:10 BP 166 / 82; Pulse 70; Resp 17 S; Pulse Ox 98% on R/A; ha1 02/22 23:51 Body Mass Index 20.37 (52.16 kg, 160.02 cm) kd3 02/22 23:51 Pain Scale: Adult kd3 02:00 Pain Scale: Adult pf1 MDM: 02/22 23:52 Patient medically screened. sb4 02/23 04:15 ED course: EXAM DESCRIPTION: Chest Abdomen Pelvis W Cont CLINICAL HISTORY: ABD PAIN sp4 COMPARISON: CT abdomen October 05, 2023 TECHNIQUE: Contiguous axial images of the chest, abdomen and pelvis were obtained followed by reconstruction images.This exam was performed according to our departmental dose-optimization program, which includes automated exposure control, adjustment of the mA and/or kV according to patient size and/or use of iterative reconstruction technique. FINDINGS: There are bilateral pleural fluid collections. Increased opacity at the lower lungs, right greater than left, could be secondary to atelectasis, underlying parenchymal disease cannot be excluded. There are enlarged mediastinal lymph nodes mainly at the right paratracheal space and right infrahilar level with areas of decreased attenuation compatible with necrotic lymph nodes. There are multiple noncalcified pulmonary nodules within both lungs largest one measuring approximately 1.2 cm compatible with metastatic disease. There is an infusion catheter with the tip ending at the level of the atriocaval junction. Stranding of the subcutaneous fat compatible with anasarca. Liver is nodular in contour with multiple areas of low attenuation compatible with hepatic masses/metastatic disease. There is free fluid in the abdomen and pelvis. There are bilateral renal cysts, no further follow-up recommended. There is atherosclerosis. The gallbladder is distended. There is evidence of prior right femoral head resection. There is lateral displacement of the femur in relation to the acetabulum. There is an acute fracture of the right fifth lateral rib. Although the stomach is decompressed there are findings compatible with diffuse mucosal thickening mainly at the distal stomach which could be secondary to gastritis, other etiologies not excluded. There is no aortic aneurysm. There is atherosclerosis. There is no evidence of bowel obstruction. There is no hydronephrosis. Spleen and pancreas are within normal limits. IMPRESSION: 1. Findings compared metastatic disease/malignancy as described. 2. Free fluid in the abdomen and pelvis. Bilateral pleural fluid collections. 3. Although the stomach is decompressed there are findings compatible with diffuse mucosal thickening mainly at the distal stomach which could be secondary to gastritis, other etiologies not excluded. 4. Acute fracture of the right fifth lateral rib. 5. Increased opacity at the lower lungs, right greater than left, could be secondary to atelectasis, underlying parenchymal disease cannot be excluded. Electronically signed by: Errol Iglesias MD 02/24/2024 03:56 AM. 04:31 ED course: IMPRESSION: 1. Findings compared metastatic disease/malignancy as described. sp4 2. Free fluid in the abdomen and pelvis. Bilateral pleural fluid collections. 3. Although the stomach is decompressed there are findings compatible with diffuse mucosal thickening mainly at the distal stomach which could be secondary to gastritis, other etiologies not excluded. 4. Acute fracture of the right fifth lateral rib. 5. Increased opacity at the lower lungs, right greater than left, could be secondary to atelectasis, underlying parenchymal disease cannot be excluded. . 04:35 Differential Diagnosis altered mental status, sepsis, flu, advancing cancer, consider sp4 associated pain. Data reviewed: vital signs, nurses notes, EMS record, old medical records, lab test result(s), radiologic studies, CT scan. ED course: ED course -pain was controlled in the emergency department, blood pressure remains elevated but stable. CT has revealed signs of extensive metastatic disease. Free fluid in the abdomen and pelvis. Bilateral pleural effusions particularly on the right. Signs of advancing cancer basically, right fifth rib fracture likely secondary to metastatic disease, and also atelectatic changes in the lungs. Patient also has signs of significant edema. At this time CT does not reveal any sign of surgical emergency. Pleural effusion is too small to drain in ER patient has follow-up in February with [facility]. At this time patient is stable for discharge to the retirement facility which is a [facility].. Will prescribe hydrocodone as needed pain, Lasix 40 mg p.o. daily, also will prescribe ondansetron as needed for nausea. Will recommend calcium carbonate daily calcium supplementation.. 02/22 23:50 Order name: CBC with Diff; Complete Time: 01:59 sb4 02/22 23:50 Order name: CMP; Complete Time: 01:35 sb4 02/22 23:50 Order name: Lipase; Complete Time: :35 sb4 02/22 23:58 Order name: PT-INR; Complete Time: 01:35 sb4 02/22 23:58 Order name: Ptt, Activated; Complete Time: 01:35 sb4 02/23 02:27 Order name: Chest Abdomen Pelvis W Cont EDMS 02/22 23:50 Order name: IV Saline Lock; Complete Time: 00:41 sb4 02/22 23:50 Order name: Labs collected and sent; Complete Time: 00:41 sb4 02/23 04:30 Order name: Lacey; Complete Time: 05:10 sp4 Administered Medications: 00:52 CANCELLED (Physician Discretion): morphineor iv 4 mg IVP once over 4 mins sb4 01:03 Drug: Ondansetron IVP 4 mg IVP once; over 2 minutes Route: IVP; Site: left forearm; kd3 02:00 Follow up: Response: No adverse reaction; Marked relief of symptoms pf1 01:03 Drug: HYDROmorphone IVP 0.5 mg IVP once Route: IVP; Site: left forearm; kd3 02:00 Follow up: Response: No adverse reaction; Marked relief of symptoms; Pain is decreased; pf1 RASS: Alert and Calm (0) 04:00 Drug: HYDROmorphone IVP 1 mg IVP once Route: IVP; Site: left forearm; pf1 05:00 Follow up: Response: No adverse reaction; Marked relief of symptoms; Pain is decreased; pf1 RASS: Alert and Calm (0) 04:00 Drug: Ondansetron IVP 4 mg IVP once; over 2 minutes Route: IVP; Site: left forearm; pf1 05:00 Follow up: Response: No adverse reaction; Marked relief of symptoms pf1 04:45 Drug: HYDROcodone-acetaminophen PO 5 mg-325 mg 2 tabs PO once Route: PO; ha1 05:20 Follow up: Response: No adverse reaction; Pain is decreased yb 04:45 Drug: Methocarbamol PO 750 mg PO once Route: PO; ha1 05:15 Follow up: Response: No adverse reaction; Pain is decreased yb 04:45 Drug: Furosemide PO 40 mg PO once Route: PO; ha1 05:15 Follow up: Response: No adverse reaction yb 04:45 Drug: Calcium Gluconate IVPB 1 grams IVPB once over 60 mins; (mix in NS 100 mL) Route: ha1 IVPB; Infused Over: 60 mins; Site: left antecubital; 05:15 Follow up: Response: No adverse reaction; IV Status: Completed infusion yb 04:45 Drug: Docusate PO 100 mg PO once Route: PO; ha1 05:15 Follow up: Response: No adverse reaction yb 05:09 Not Given (Duplicate Order): tumschewable tablet 800 mg PO once rv 05:17 Drug: Tums PO Chewable Tablet 1000 mg PO once Route: PO; yb 05:30 Follow up: Response: No adverse reaction yb Disposition: 04:32 Co-signature as Attending Physician, Villa Mohan MD I agree with the assessment sp4 and plan of care. I reviewed the patient's care provided by Advanced Practice Provider \T\ agree w/ the diagnosis \T\ care plan. I personally saw the pt \T\ performed a substantive portion of the visit, incldng all aspects of the (History/Exam/Medical Decision Making). 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 Hepatic sp4 metastatic disease, cancer associated pain, bilateral pleural effusion, hypocalcemia, physical deconditioning, bilateral pulmonary atelectasis. Complications of immobility. Followup: sp4 - With: Private Physician - When: 2 - 3 days - Reason: Recheck today's complaints Discharge Instructions: - Discharge Summary Sheet sp4 - Edema, Dhly-so-[id number] sp4 - Managing Cancer Pain sp4 Forms: - Patient Portal Instructions sp4 Prescriptions: - calcium carbonate 500 mg calcium (1,250 mg) Oral tablet - take 3 tablet ORAL route 2 times per day; 100 tablet; Refills: 0, Product sp4 Selection Permitted - furosemide 40 mg Oral tablet - take 1 tablet ORAL route once daily; 30 tablet; Refills: 0, Product Selection sp4 Permitted - ondansetron 8 mg Oral Tablet,disintegrating - take 1 tablet ORAL route every 8 hours PRN nausea; 30 tablet; Refills: 0, sp4 Product Selection Permitted Signatures: Dispatcher [employer] EDMD Luke Leung RN RN rv Mariely Hankins RN RN kd3 Rachelle Figueroa RN RN ha1 Gayathri Matos PA-C PA-C sb4 Jessa Spangler RN RN pf1 Villa Mohan MD MD sp4 Sherice Matos RN ANGUS yb Corrections: (The following items were deleted from the chart) 00:52 02/22 23:58 morphine IVP or IV 4 mg IVP once over 4 mins ordered. sb4 sb4 02/23 02:27 01:36 Abdomen Pelvis W Con+CT.RAD.BRZ ordered. EDMD EDMS 02:41 02/22 23:59 Patient with history of biliary cancer with bone mets presents with sb4 complaints of sudden onset diffuse abdominal pain. Patient had her right acetabulum surgically removed a few weeks ago secondary to bone mets and has been in rehab at [facility] since. States that her legs have become increasingly swollen over the past few weeks. States that this abdominal pain came out of nowhere this evening. She does feel nauseous but has not vomited and has not had any episodes of diarrhea or recorded fever. States this pain feels different than her cancer pain. She was undergoing chemotherapy with [facility] but had to put it on hold for her surgery. sb4
--- NOTE | 2024-02-24 04:42 | ER ---
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 Hepatic metastatic disease, cancer associated pain, bilateral pleural effusion, hypocalcemia, physical deconditioning, bilateral pulmonary atelectasis. Complications of immobility. Presentation: 02/22 23:30 Chief complaint: EMS states: Pt had a surgery 3 weeks ago and she has been having kd3 severe right hip pain and bilateral leg swelling. Pt comes from the [facility] for rehab. Pt woke up tonight with severe abdominal pain. The fpc sates that the patient's right hip tends to dislocates if not moved carefully. PT was given a gram of Tylenol and has a fentanyl and a lidocaine patch to the right hip. Coronavirus screen: Vaccine status: unknown. Ebola Screen: No symptoms or risks identified at this time. Initial Sepsis Screen: Does the patient meet any 2 criteria? No. Patient's initial sepsis screen is negative. Does the patient have a suspected source of infection? No. Patient's initial sepsis screen is negative. Risk Assessment: Do you want to hurt yourself or someone else? Patient reports no desire to harm self or others. Onset of symptoms was February 23, 2024. 23:30 Method Of Arrival: EMS: [facility] kd3 23:30 Acuity: VALENTINE 3 kd3 Triage Assessment: 23:35 General: Appears uncomfortable, Behavior is calm, cooperative. Pain: Complains of pain kd3 in right hip. GI: Abdomen is non-distended. Historical: - Allergies: 23:35 LUCINA INHIBITORS; kd3 - Immunization history:: Adult Immunizations up to date. - Social history:: Smoking status: unknown. Screenin/29 00:44 [facility] ED Fall Risk Assessment (Adult) History of falling in the last 3 months, kd3 including since admission No falls in past 3 months (0 pts) Confusion or Disorientation No (0 pts) Intoxicated or Sedated No (0 pts) Impaired Gait Yes (1 pt) Mobility Assist Device Used No (0 pt) Altered Elimination No (0 pt) Score/Fall Risk Level 0 - 2 = Low Risk Maintained a safe environment. Abuse screen: Denies threats or abuse. Denies injuries from another. Nutritional screening: No deficits noted. Tuberculosis screening: No symptoms or risk factors identified. Assessment: 00:07 General: Appears uncomfortable, ill, Behavior is calm, cooperative. Pain: Complains of kd3 pain in abdomen. Neuro: Level of Consciousness is awake, alert, obeys commands, Oriented to person, place, time, situation. Cardiovascular: Patient's skin is warm and dry. Respiratory: Airway is patent Trachea midline Respiratory effort is even, unlabored, Respiratory pattern is regular, symmetrical. 00:08 General: Pt reports a history of biliary cancer that had metastasized to her right hip kd3 bones. The surgery she had 3 weeks ago removed the ball join in her right hip due to the cancer. Pt vital signs are currently stable . 00:43 General: PT states she cannot take morphine. Provider notified. . kd3 00:45 GI: Bowel sounds present X 4 quads. Abd is soft X 4 quads Abdomen is tender to kd3 palpation in right lower quadrant and left lower quadrant. 00:47 General: Called [facility] to fax over paper work . kd3 01:00 Reassessment: Patient appears in no apparent distress at this time. Patient and/or pf1 family updated on plan of care and expected duration. Pain level reassessed. Patient is alert, oriented x 3, equal unlabored respirations, skin warm/dry/pink. Patient states symptoms have not improved. 01:05 General: Contacted the patient's at [phone] and notified him that the kd3 patient was in the ER. PT's requesting a call back with an update. . 02:00 Reassessment: Patient appears in no apparent distress at this time. Patient and/or pf1 family updated on plan of care and expected duration. Pain level reassessed. Patient is alert, oriented x 3, equal unlabored respirations, skin warm/dry/pink. 03:00 Reassessment: Patient appears in no apparent distress at this time. Patient and/or pf1 family updated on plan of care and expected duration. Pain level reassessed. Patient is alert, oriented x 3, equal unlabored respirations, skin warm/dry/pink. Patient states symptoms have not improved. 04:00 Reassessment: Patient appears in no apparent distress at this time. Patient and/or pf1 family updated on plan of care and expected duration. Pain level reassessed. Patient is alert, oriented x 3, equal unlabored respirations, skin warm/dry/pink. Patient states symptoms have improved. 05:00 Reassessment: Patient and/or family updated on plan of care and expected duration. Pain ha1 level reassessed. Patient is alert, oriented x 3, equal unlabored respirations, skin warm/dry/pink. 05:18 Reassessment: nurse to nurse report given to ABDULKADIR Erazo. nurse stated " I will make ha1 arrangements for the transportation". Vital Signs: 02/22 23:51 BP 164 / 85; Pulse 72; Resp 16; Temp 97.9(O); Pulse Ox 98% on R/A; Weight 52.16 kg; kd3 Height 5 ft. 3 in. ; Pain 8/10; 02/23 00:41 BP 161 / 74; Pulse 79; Resp 17; Pulse Ox 99% on R/A; kd3 01:03 BP 160 / 79; Pulse 79; Resp 16; Pulse Ox 98% on R/A; kd3 01:10 BP 159 / 72; kd3 02:00 BP 175 / 68; Pulse 80; Resp 18; Pulse Ox 100% on R/A; Pain 8/10; pf1 03:00 BP 169 / 72; Pulse 75; Resp 16; Pulse Ox 99% on R/A; pf1 04:00 BP 181 / 75; Pulse 70; Resp 16; Pulse Ox 98% on R/A; pf1 05:10 BP 166 / 82; Pulse 70; Resp 17 S; Pulse Ox 98% on R/A; ha1 02/22 23:51 Body Mass Index 20.37 (52.16 kg, 160.02 cm) kd3 02/22 23:51 Pain Scale: Adult kd3 02:00 Pain Scale: Adult pf1 ED Course: 02/22 23:19 Patient arrived in ED. jj6 23:30 Mariely Hankins, RN is Primary Nurse. kd3 23:35 Triage completed. kd3 23:35 Arm band placed on. kd3 23:52 Gayathri Matos PA-C is PHCP. sb4 23:52 Villa Mohan MD is Attending Physician. sb4 02/23 00:41 No provider procedures requiring assistance completed. Inserted saline lock: 20 gauge kd3 in left forearm, using aseptic technique. Blood collected. 00:41 Initial lab(s) drawn, by ED staff, sent to lab. pf1 00:45 Patient has correct armband on for positive identification. kd3 01:03 Ptt, Activated Sent. kd3 01:03 PT-INR Sent. kd3 01:03 CBC with Diff Sent. kd3 01:03 CMP Sent. kd3 01:03 Lipase Sent. kd3 02:27 Chest Abdomen Pelvis W Cont In Process Unspecified. EDMS 05:10 Rahman cath inserted, using sterile technique, 16 Fr., by me, balloon inflated, to ha1 gravity drainage, returned cloudy urine. Patient tolerated well. 05:50 Assisted with dressing. Cleaned of incontinence. Linen changed. Patient incontinent of yb stool, large watery yellow BM. 06:10 IV discontinued, intact, bleeding controlled, No redness/swelling at site. Pressure yb dressing applied. 06:11 Provided Education on: Follow up care and medication regimenm.. yb Administered Medications: 00:52 CANCELLED (Physician Discretion): morphineor iv 4 mg IVP once over 4 mins sb4 01:03 Drug: Ondansetron IVP 4 mg IVP once; over 2 minutes Route: IVP; Site: left forearm; kd3 02:00 Follow up: Response: No adverse reaction; Marked relief of symptoms pf1 01:03 Drug: HYDROmorphone IVP 0.5 mg IVP once Route: IVP; Site: left forearm; kd3 02:00 Follow up: Response: No adverse reaction; Marked relief of symptoms; Pain is decreased; pf1 RASS: Alert and Calm (0) 04:00 Drug: HYDROmorphone IVP 1 mg IVP once Route: IVP; Site: left forearm; pf1 05:00 Follow up: Response: No adverse reaction; Marked relief of symptoms; Pain is decreased; pf1 RASS: Alert and Calm (0) 04:00 Drug: Ondansetron IVP 4 mg IVP once; over 2 minutes Route: IVP; Site: left forearm; pf1 05:00 Follow up: Response: No adverse reaction; Marked relief of symptoms pf1 04:45 Drug: HYDROcodone-acetaminophen PO 5 mg-325 mg 2 tabs PO once Route: PO; ha1 05:20 Follow up: Response: No adverse reaction; Pain is decreased yb 04:45 Drug: Methocarbamol PO 750 mg PO once Route: PO; ha1 05:15 Follow up: Response: No adverse reaction; Pain is decreased yb 04:45 Drug: Furosemide PO 40 mg PO once Route: PO; ha1 05:15 Follow up: Response: No adverse reaction yb 04:45 Drug: Calcium Gluconate IVPB 1 grams IVPB once over 60 mins; (mix in NS 100 mL) Route: ha1 IVPB; Infused Over: 60 mins; Site: left antecubital; 05:15 Follow up: Response: No adverse reaction; IV Status: Completed infusion yb 04:45 Drug: Docusate PO 100 mg PO once Route: PO; ha1 05:15 Follow up: Response: No adverse reaction yb 05:09 Not Given (Duplicate Order): tumschewable tablet 800 mg PO once rv 05:17 Drug: Tums PO Chewable Tablet 1000 mg PO once Route: PO; yb 05:30 Follow up: Response: No adverse reaction yb Medication: 00:45 VIS not applicable for this client. kd3 Outcome: 04:41 Discharge ordered by . sp4 06:08 Discharged to fpc. Report called to Nikia PANCHAL at [facility] yb 06:08 Condition: stable 06:08 Discharge instructions given to patient, family, Instructed on discharge instructions, follow up and referral plans. Demonstrated understanding of instructions, follow-up care, medications, Prescriptions given X 4, 06:16 Patient left the ED. yb Signatures: Dispatcher [employer] EDMS Soni Hodgson6 Mariely Hankins RN RN kd3 Rachelle Figueroa RN RN haGayathri Singletary, PA-Adrian PAJessa Mcdonald RN RN Villa Coburn MD MD sp4 Sherice Matos RN RN yb Luke Leung RN rv
[2024-02-24] MEDS ORDERED: methocarbamoL 750 MG TAB ONE (04:43)
[2024-02-24] MEDS ORDERED: HYDROCODONE/APAP 5/325 MG TAB ONE (04:44)
[2024-02-24] MEDS ORDERED: CALCIUM GLUCONATE 1 GM IVPB 1 GM/50 ML BAG IV ONE (04:44)
[2024-02-24] MEDS ORDERED: DOCUSATE NA 100 MG CAP PO ONE (04:44)
[2024-02-24] MEDS ORDERED: CALCIUM CARBONATE CHEW 500MG TAB ONE (05:03)
[2024-02-24 06:54] VITALS: BP 166/82; TEMP 97.9; O2SAT 98
--- NOTE | 2024-02-24 14:51 | RAD REPORT ---
EXAM DESCRIPTION: Chest Abdomen Pelvis W Cont CLINICAL HISTORY: ABD PAIN COMPARISON: CT abdomen October 05, 2023 TECHNIQUE: Contiguous axial images of the chest, abdomen and pelvis were obtained followed by recons truction images.This exam was performed according to our departmental dose-optimization program, whic h includes automated exposure control, adjustment of the mA and/or kV according to patient size and/o r use of iterative reconstruction technique. FINDINGS: There are bilateral pleural fluid collections. Increased opacity at the lower lungs, right greater than left, could be secondary to atelectasis, underlying parenchymal disease cannot be exclu ded. There are enlarged mediastinal lymph nodes mainly at the right paratracheal space and right infr ahilar level with areas of decreased attenuation compatible with necrotic lymph nodes. There are mult iple noncalcified pulmonary nodules within both lungs largest one measuring approximately 1.2 cm comp atible with metastatic disease. There is an infusion catheter with the tip ending at the level of the atriocaval junction. Stranding of the subcutaneous fat compatible with anasarca. Liver is nodular in contour with multiple areas of low attenuation compatible with hepatic masses/metastatic disease. There is free fluid in t he abdomen and pelvis. There are bilateral renal cysts, no further follow-up recommended. There is at herosclerosis. The gallbladder is distended. There is evidence of prior right femoral head resection. There is lateral displacement of the femur in relation to the acetabulum. There is an acute fracture of the right fifth lateral rib. Although the stomach is decompressed there are findings compatible w ith diffuse mucosal thickening mainly at the distal stomach which could be secondary to gastritis, ot her etiologies not excluded. There is no aortic aneurysm. There is atherosclerosis. There is no evidence of bowel obstruction. The re is no hydronephrosis. Spleen and pancreas are within normal limits. IMPRESSION: 1. Findings compared metastatic disease/malignancy as described. 2. Free fluid in the abdomen and pelvis. Bilateral pleural fluid collections. 3. Although the stomach is decompressed there are findings compatible with diffuse mucosal thickeni ng mainly at the distal stomach which could be secondary to gastritis, other etiologies not excluded. 4. Acute fracture of the right fifth lateral rib. 5. Increased opacity at the lower lungs, right greater than left, could be secondary to atelectasis , underlying parenchymal disease cannot be excluded. Electronically signed by: Errol Iglesias MD 02/24/2024 03:56 AM CDT Due to temporary technical issues with the PACS/Fluency reporting system, reports are being signed by the in house radiologists without review as a courtesy to insure prompt reporting. The interpreting radiologist is fully responsible for the content of the report.
== END 2024-02-24 06:16 | disposition home or self-care (01) ==
LOC: ER 23:19
DX: C78.01 Secondary malignant neoplasm of right lung (principal); C78.1 Secondary malignant neoplasm of mediastinum; C78.7 Secondary malignant neoplasm of liver and intrahepatic bile duct; C79.51 Secondary malignant neoplasm of bone; C24.9 Malignant neoplasm of biliary tract, unspecified; G89.3 Neoplasm related pain (acute) (chronic); J90 Pleural effusion, not elsewhere classified; E83.51 Hypocalcemia; J98.11 Atelectasis; Z72.3 Lack of physical exercise; Z88.8 Allergy status to other drugs, medicaments and biological substances
CPT/HCPCS: 96365; 85025; 36415; 85610; 85730; 83690; 80053; 71260; 74177; 51702; 96375; 99285; Q9967; J0612; J1170 ×2; J2405 ×2